=== PATIENT | male | born 1965 | race Hispanic/Latino ===

== ENCOUNTER 2017-12-09 22:22 | Inpatient (IN) | payer OTHER ==
[~2017-12-09] VITALS: Ht 180.3 cm; Wt 131.4 kg
[~2017-12-09 22:22] MED LIST: ASPI-555 PO; CARV25TA PO; DIAZ2TAB3 PO; DULA1.5P SQ; GABA-529 PO; INSU200I4 SQ; LISI-613 PO; METF-527 PO; PIOG30TA70 PO
[2017-12-09] MEDS ORDERED: SODIUM CHLORIDE 0.9% 1000ML 1,000 ML IV ONE (23:05)
[2017-12-09] MEDS ORDERED: ONDANSETRON HCL 4 MG/2 ML VIAL ONE (23:05)
[2017-12-09] MEDS ORDERED: ZOSYN 3.375GM+NS 50ML 50 ML IV ONE (23:06)
[2017-12-09] MEDS ORDERED: MORPHINE SULFATE 4 MG/1ML SYG ONE (23:06)
[2017-12-09 23:13] LABS: BASOPHILS % (AUTO) 0.4 % (0.0-5.0); EOSINOPHILS % (AUTO) 1.3 % (0.0-8.0); HEMATOCRIT 43.2 % (42-54); MEAN CORPUSCULAR HEMOGLOBIN 30.6 pg (27.0-33.0); MEAN CORPUSCULAR HGB CONC 34.6 g/dL (32.0-36.0); MEAN CORPUSCULAR VOLUME 88.4 fL (79-99); MONOCYTES % (AUTO) 8.9 % (3.0-13.0); NEUTROPHILS % (AUTO) 70.4 % (40.0-77.0); PLATELET COUNT (AUTO) 270 K/uL (130-400); RED BLOOD CELL COUNT(AUTO) 4.89 MIL/uL (4.50-6.20); RED CELL DISTRIBUTION WIDTH 13.5 % (11.0-15.5); WHITE BLOOD COUNT (AUTO) 11.6 K/uL (4.8-10.8)
[2017-12-09 23:19] LABS: CREATININE 0.9 mg/dL (0.5-1.5); POTASSIUM 4.1 mmol/L (3.5-5.1)
[2017-12-09 23:24] LABS: ALBUMIN 2.7 g/dL (3.5-5.0); BILIRUBIN,TOTAL 0.5 mg/dL (0.2-1.0); TOTAL PROTEIN, SERUM 8.7 g/dL (6.0-8.3)
[2017-12-09] MEDS ORDERED: VANCOMYCIN 1GM+NS 250ML 500 ML IV ONE (23:49)
[2017-12-10] VITALS (24 sets, daily range): BP systolic 108–155; BP diastolic 65–103
[2017-12-10] MEDS: SODIUM CHLORIDE 0.9% 1000ML 1,000 ML IV SCH ×2 (00:30→18:56)
[2017-12-10] MEDS ORDERED: DEXTROSE 50%-WATER 50 ML DISP.SYRIN IV PRN (00:30)
[2017-12-10] MEDS ORDERED: GLUCAGON 1MG KIT 1 MG ML IM PRN (00:30)
[2017-12-10] MEDS ORDERED: VANCOMYCIN PROTOCOL PER PHARMACY IV SCH (00:30)
[2017-12-10] MEDS ORDERED: ACETAMINOPHEN 325 MG TAB PO PRN (00:30)
[2017-12-10] MEDS ORDERED: PHARMACY COMMUNICATION MISC SCH (00:30)
[2017-12-10] MEDS: ZOSYN 3.375GM+NS 50ML 50 ML IV SCH ×3 (01:00→16:27)
[2017-12-10] MEDS ORDERED: VANCOMYCIN 1.5 GM in SODIUM CHLORIDE 0.9% 250 ML IV SCH (01:00)
[2017-12-10] MEDS ORDERED: DEXAMETHASONE SOD PHOSPHATE 10MG/ML 1ML VIAL ONE (02:26)
[2017-12-10] MEDS ORDERED: MIDAZOLAM HCL 1 MG/ML 2ML VIAL ONE ×2 (02:26→03:14)
[2017-12-10] MEDS ORDERED: ONDANSETRON HCL 4 MG/2 ML VIAL ONE (02:26)
[2017-12-10] MEDS ORDERED: LIDOCAINE PF 2% 5ML ABBOJECT ONE (02:26)
[2017-12-10] MEDS ORDERED: PROPOFOL 10 MG/ML 20ML VIAL IV ONE (02:26)
[2017-12-10] MEDS ORDERED: SUCCINYLCHOLINE 200MG/10ML SYR ONE (02:26)
[2017-12-10] MEDS ORDERED: FENTANYL CITRATE PF 50 MCG/1 ML 2ML VIAL ONE ×4 (02:27→03:52)
[2017-12-10] MEDS ORDERED: BUPIVACAINE/PF 0.5% 10ML VIAL ONE (02:34)
[2017-12-10] MEDS ORDERED: LIDOCAINE HCL 1% 20 ML VIAL ONE (02:34)
[2017-12-10] MEDS ORDERED: DiphenhydrAMINE HCL 50 MG/ML VIAL ONE (03:51)
[2017-12-10 06:37] LABS: BASOPHILS % (AUTO) 0.7 % (0.0-5.0); EOSINOPHILS % (AUTO) 2.7 % (0.0-8.0); HEMATOCRIT 38.2 % (42-54); LYMPHOCYTES % (AUTO) 28.1 % (21.0-51.0); MEAN CORPUSCULAR HGB CONC 34.9 g/dL (32.0-36.0); MONOCYTES % (AUTO) 9.4 % (3.0-13.0); NEUTROPHILS % (AUTO) 59.1 % (40.0-77.0); PLATELET COUNT (AUTO) 236 K/uL (130-400); RED BLOOD CELL COUNT(AUTO) 4.29 MIL/uL (4.50-6.20); RED CELL DISTRIBUTION WIDTH 13.6 % (11.0-15.5); WHITE BLOOD COUNT (AUTO) 8.3 K/uL (4.8-10.8)
[2017-12-10 06:47] LABS: ALBUMIN 2.3 g/dL (3.5-5.0); BILIRUBIN,TOTAL 0.4 mg/dL (0.2-1.0); CREATININE 0.8 mg/dL (0.5-1.5); MAGNESIUM 1.6 mg/dL (1.80-2.40); POTASSIUM 3.8 mmol/L (3.5-5.1); TOTAL PROTEIN, SERUM 7.2 g/dL (6.0-8.3)
[2017-12-10] MEDS: INSULIN R PO SS1 SQ SCH ×4 (06:53→20:43)
[2017-12-10] MEDS ORDERED: COMPOUND IV REFRIGERATED 1 EACH IVSOLN MISC PRN (07:45)
[2017-12-10] MEDS ORDERED: ONDANSETRON HCL MDV 20ML 2 MG/ML VIAL IVP PRN (07:45)
[2017-12-10] MEDS: HYDROMORPHONE HCL 0.5 MG/0.5 ML ML IVP PRN ×4 (08:19→20:51)
[2017-12-10] MEDS: VANCOMYCIN 2 GM in SODIUM CHLORIDE 0.9% 500ML 500 ML IV SCH ×2 (10:57→20:47)
[2017-12-10] MEDS: HYDROCODONE/ACETAMINOPHEN 5/325 MG TAB PO PRN (17:08)
[2017-12-10] MEDS ORDERED: LIRA0.6P SQ (17:14)
[2017-12-10] MEDS ORDERED: GLIM4TAB3 PO (17:14)
[2017-12-10] MEDS ORDERED: MECL-129 PO (17:14)
[2017-12-10] MEDS ORDERED: CIPR-245 PO (17:14)
[2017-12-10] MEDS: GLIMEPIRIDE 2 MG TABLET PO SCH (20:46)
[2017-12-10] MEDS: LISINOPRIL 20 MG TABLET PO SCH (20:47)
[2017-12-10] MEDS: CARVEDILOL 25 MG TABLET PO SCH (20:51)
[2017-12-11] MEDS: ZOSYN 3.375GM+NS 50ML 50 ML IV SCH ×3 (01:02→20:46)
[2017-12-11] MEDS: HYDROMORPHONE HCL 0.5 MG/0.5 ML ML IVP PRN ×5 (01:03→21:00)
[2017-12-11 03:40] VITALS: BP 120/70
[2017-12-11] MEDS: INSULIN R PO SS1 SQ SCH ×4 (06:16→21:00)
[2017-12-11 08:00] VITALS: BP 122/73
[2017-12-11] MEDS: METFORMIN HCL 500 MG TABLET PO SCH ×2 (08:00→17:00)
[2017-12-11] MEDS: INSULIN DEGLUDEC 50 UNIT SQ SCH (08:00)
[2017-12-11] MEDS: SODIUM CHLORIDE 0.9% 1000ML 1,000 ML IV SCH ×2 (08:07→16:30)
[2017-12-11] MEDS: LIRAGLUTIDE 1.8 MG SQ SCH (09:00)
[2017-12-11] MEDS: PIOGLITAZONE HCL 15 MG TAB PO SCH (09:27)
[2017-12-11] MEDS: CARVEDILOL 25 MG TABLET PO SCH ×2 (09:27→20:47)
[2017-12-11] MEDS: ASPIRIN 81 MG EC TAB PO SCH (09:28)
[2017-12-11] MEDS: LISINOPRIL 20 MG TABLET PO SCH ×2 (09:28→20:46)
[2017-12-11] MEDS: VANCOMYCIN 2 GM in SODIUM CHLORIDE 0.9% 500ML 500 ML IV SCH (09:34)
[2017-12-11 13:11] VITALS: BP 130/67
[2017-12-11] MEDS: VANCOMYCIN 1GM+NS 250ML 250 ML IV SCH ×2 (15:40→22:38)
[2017-12-11 16:00] VITALS: BP 134/81
[2017-12-11 19:20] VITALS: BP 154/91
[2017-12-11] MEDS: GLIMEPIRIDE 2 MG TABLET PO SCH (20:47)
[2017-12-12 00:20] VITALS: BP 127/83
[2017-12-12] MEDS: HYDROMORPHONE HCL 0.5 MG/0.5 ML ML IVP PRN ×3 (02:04→16:07)
[2017-12-12 04:05] VITALS: BP 136/81
[2017-12-12 05:02] LABS: BASOPHILS % (AUTO) 0.7 % (0.0-5.0); EOSINOPHILS % (AUTO) 3.8 % (0.0-8.0); HEMATOCRIT 39.1 % (42-54); LYMPHOCYTES % (AUTO) 29.8 % (21.0-51.0); MEAN CORPUSCULAR HEMOGLOBIN 31.3 pg (27.0-33.0); MEAN CORPUSCULAR HGB CONC 35.5 g/dL (32.0-36.0); MEAN CORPUSCULAR VOLUME 88.3 fL (79-99); MONOCYTES % (AUTO) 7.9 % (3.0-13.0); NEUTROPHILS % (AUTO) 57.8 % (40.0-77.0); NUCLEATED RED BLOOD CELLS 0.1 % (0.0-0.19); PLATELET COUNT (AUTO) 255 K/uL (130-400); RED BLOOD CELL COUNT(AUTO) 4.43 MIL/uL (4.50-6.20); RED CELL DISTRIBUTION WIDTH 13.5 % (11.0-15.5); WHITE BLOOD COUNT (AUTO) 11.9 K/uL (4.8-10.8)
[2017-12-12] MEDS: ZOSYN 3.375GM+NS 50ML 50 ML IV SCH ×3 (05:04→21:01)
[2017-12-12] MEDS: SODIUM CHLORIDE 0.9% 1000ML 1,000 ML IV SCH ×3 (05:07→22:30)
[2017-12-12 05:26] LABS: ALBUMIN 2.2 g/dL (3.5-5.0); BILIRUBIN,TOTAL 0.4 mg/dL (0.2-1.0); CREATININE 0.8 mg/dL (0.5-1.5); POTASSIUM 4.2 mmol/L (3.5-5.1); TOTAL PROTEIN, SERUM 7.2 g/dL (6.0-8.3)
[2017-12-12] MEDS: VANCOMYCIN 1GM+NS 250ML 250 ML IV SCH ×3 (05:42→23:16)
[2017-12-12] MEDS: INSULIN R PO SS1 SQ SCH ×4 (05:44→21:00)
[2017-12-12] MEDS: METFORMIN HCL 500 MG TABLET PO SCH ×2 (08:00→16:15)
[2017-12-12] MEDS: INSULIN DEGLUDEC 50 UNIT SQ SCH (08:00)
[2017-12-12 08:30] VITALS: BP 141/86
[2017-12-12] MEDS: CARVEDILOL 25 MG TABLET PO SCH ×2 (08:44→21:00)
[2017-12-12] MEDS: LISINOPRIL 20 MG TABLET PO SCH ×2 (08:45→21:00)
[2017-12-12] MEDS: ASPIRIN 81 MG EC TAB PO SCH (08:57)
[2017-12-12] MEDS: PIOGLITAZONE HCL 15 MG TAB PO SCH (08:58)
[2017-12-12] MEDS: LIRAGLUTIDE 1.8 MG SQ SCH (09:00)
[2017-12-12] MEDS: MORPHINE SULFATE 4 MG/1ML SYG IVP PRN ×2 (10:58→21:13)
[2017-12-12 12:50] VITALS: BP 131/73
[2017-12-12 17:06] VITALS: BP 155/96
[2017-12-12 20:00] VITALS: BP 142/98
[2017-12-12] MEDS: GLIMEPIRIDE 2 MG TABLET PO SCH (21:01)
[2017-12-13] VITALS: BP 138/89
[2017-12-13] MEDS: HYDROMORPHONE HCL 0.5 MG/0.5 ML ML IVP PRN ×5 (03:37→23:53)
[2017-12-13 04:00] VITALS: BP 164/87
[2017-12-13] MEDS: ZOSYN 3.375GM+NS 50ML 50 ML IV SCH ×3 (04:56→20:52)
[2017-12-13] MEDS: INSULIN R PO SS1 SQ SCH ×4 (06:30→20:53)
[2017-12-13 08:00] VITALS: BP 135/92
[2017-12-13] MEDS: INSULIN DEGLUDEC 50 UNIT SQ SCH (08:00)
[2017-12-13] MEDS: PIOGLITAZONE HCL 45 MG TAB PO SCH (08:48)
[2017-12-13] MEDS: METFORMIN HCL 500 MG TABLET PO SCH ×2 (08:48→16:23)
[2017-12-13] MEDS: ASPIRIN 81 MG EC TAB PO SCH (08:49)
[2017-12-13] MEDS: PIOGLITAZONE HCL 15 MG TAB PO SCH (08:49)
[2017-12-13] MEDS: LISINOPRIL 20 MG TABLET PO SCH ×2 (08:49→20:53)
[2017-12-13] MEDS: CARVEDILOL 25 MG TABLET PO SCH ×2 (08:49→20:53)
[2017-12-13] MEDS: LIRAGLUTIDE 1.8 MG SQ SCH (08:51)
[2017-12-13] MEDS: SODIUM CHLORIDE 0.9% 1000ML 1,000 ML IV SCH ×2 (09:12→16:23)
[2017-12-13 12:00] VITALS: BP 132/91
[2017-12-13 16:00] VITALS: BP 117/69
[2017-12-13 19:00] VITALS: BP 128/93
[2017-12-13] MEDS: GLIMEPIRIDE 2 MG TABLET PO SCH (20:52)
[2017-12-14] VITALS (23 sets, daily range): BP systolic 53–148; BP diastolic 27–94
[2017-12-14] MEDS: ZOSYN 3.375GM+NS 50ML 50 ML IV SCH ×3 (04:57→21:00)
[2017-12-14] MEDS: HYDROMORPHONE HCL 0.5 MG/0.5 ML ML IVP PRN ×4 (05:03→21:32)
[2017-12-14] MEDS ORDERED: LIDOCAINE HCL 1% 20 ML VIAL ONE (06:02)
[2017-12-14] MEDS ORDERED: BUPIVACAINE/PF 0.5% 30ML VIAL ONE (06:02)
[2017-12-14] MEDS: INSULIN R PO SS1 SQ SCH ×4 (06:04→20:59)
[2017-12-14] MEDS: SODIUM CHLORIDE 0.9% 1000ML 1,000 ML IV SCH ×3 (06:13→23:41)
[2017-12-14] MEDS ORDERED: PROPOFOL 10 MG/ML 20ML VIAL IV ONE (06:34)
[2017-12-14] MEDS ORDERED: FENTANYL CITRATE PF 50 MCG/1 ML 2ML VIAL ONE (06:34)
[2017-12-14] MEDS ORDERED: MIDAZOLAM HCL 1 MG/ML 2ML VIAL ONE (06:34)
[2017-12-14] MEDS: PIOGLITAZONE HCL 45 MG TAB PO SCH ×3 (07:43→09:56)
[2017-12-14] MEDS: LIRAGLUTIDE 1.8 MG SQ SCH (07:43)
[2017-12-14] MEDS: INSULIN DEGLUDEC 50 UNIT SQ SCH (07:43)
[2017-12-14] MEDS: CARVEDILOL 25 MG TABLET PO SCH ×2 (08:25→21:01)
[2017-12-14] MEDS: LISINOPRIL 20 MG TABLET PO SCH ×2 (08:25→21:01)
[2017-12-14] MEDS: PIOGLITAZONE HCL 15 MG TAB PO SCH (09:00)
[2017-12-14] MEDS: ASPIRIN 81 MG EC TAB PO SCH (09:00)
[2017-12-14] MEDS: METFORMIN HCL 500 MG TABLET PO SCH ×2 (09:52→17:22)
[2017-12-14] MEDS: HYDROCODONE/ACETAMINOPHEN 5/325 MG TAB PO PRN (19:26)
[2017-12-14] MEDS: GLIMEPIRIDE 2 MG TABLET PO SCH (21:01)
[2017-12-15] VITALS: BP 114/78
[2017-12-15] MEDS: HYDROMORPHONE HCL 0.5 MG/0.5 ML ML IVP PRN ×4 (03:42→16:46)
[2017-12-15 04:38] VITALS: BP 128/81
[2017-12-15] MEDS: ZOSYN 3.375GM+NS 50ML 50 ML IV SCH ×3 (04:56→21:22)
[2017-12-15] MEDS: HYDROCODONE/ACETAMINOPHEN 5/325 MG TAB PO PRN ×2 (05:43→15:29)
[2017-12-15] MEDS: INSULIN R PO SS1 SQ SCH ×4 (05:44→21:00)
[2017-12-15] MEDS: INSULIN DEGLUDEC 50 UNIT SQ SCH (08:00)
[2017-12-15] MEDS: ASPIRIN 81 MG EC TAB PO SCH (08:04)
[2017-12-15] MEDS: LISINOPRIL 20 MG TABLET PO SCH ×2 (08:05→21:20)
[2017-12-15] MEDS: CARVEDILOL 25 MG TABLET PO SCH ×2 (08:05→21:22)
[2017-12-15] MEDS: METFORMIN HCL 500 MG TABLET PO SCH ×2 (08:05→16:46)
[2017-12-15] MEDS: LIRAGLUTIDE 1.8 MG SQ SCH (08:43)
[2017-12-15 09:53] VITALS: BP 148/96
[2017-12-15 11:00] VITALS: BP 126/80
[2017-12-15] MEDS: SODIUM CHLORIDE 0.9% 1000ML 1,000 ML IV SCH ×2 (12:55→22:41)
[2017-12-15 16:00] VITALS: BP 132/75
[2017-12-15 20:00] VITALS: BP 156/94
[2017-12-15] MEDS: GLIMEPIRIDE 2 MG TABLET PO SCH (21:21)
[2017-12-16] VITALS (7 sets, daily range): BP systolic 130–161; BP diastolic 79–97
[2017-12-16] MEDS: HYDROMORPHONE HCL 0.5 MG/0.5 ML ML IVP PRN (02:45)
[2017-12-16] MEDS: ZOSYN 3.375GM+NS 50ML 50 ML IV SCH ×3 (06:02→20:29)
[2017-12-16] MEDS: INSULIN R PO SS1 SQ SCH ×4 (06:02→21:00)
[2017-12-16] MEDS: SODIUM CHLORIDE 0.9% 1000ML 1,000 ML IV SCH ×2 (06:30→16:30)
[2017-12-16] MEDS: INSULIN DEGLUDEC 50 UNIT SQ SCH (08:00)
[2017-12-16] MEDS: PIOGLITAZONE HCL 45 MG TAB PO SCH (08:00)
[2017-12-16] MEDS: HYDROCODONE/ACETAMINOPHEN 5/325 MG TAB PO PRN ×5 (08:00→23:48)
[2017-12-16] MEDS: ASPIRIN 81 MG EC TAB PO SCH (08:00)
[2017-12-16] MEDS: LISINOPRIL 20 MG TABLET PO SCH ×2 (08:01→20:35)
[2017-12-16] MEDS: METFORMIN HCL 500 MG TABLET PO SCH ×2 (08:01→17:35)
[2017-12-16] MEDS: CARVEDILOL 25 MG TABLET PO SCH ×2 (08:01→20:30)
[2017-12-16] MEDS: LIRAGLUTIDE 1.8 MG SQ SCH (08:01)
[2017-12-16] MEDS: GLIMEPIRIDE 2 MG TABLET PO SCH (20:29)
[2017-12-17 04:00] VITALS: BP 150/94
[2017-12-17] MEDS: ZOSYN 3.375GM+NS 50ML 50 ML IV SCH ×3 (06:29→23:06)
[2017-12-17] MEDS: HYDROCODONE/ACETAMINOPHEN 5/325 MG TAB PO PRN ×3 (06:30→15:18)
[2017-12-17] MEDS: INSULIN R PO SS1 SQ SCH ×4 (07:30→21:00)
[2017-12-17 08:00] VITALS: BP 144/88
[2017-12-17] MEDS: INSULIN DEGLUDEC 50 UNIT SQ SCH (08:00)
[2017-12-17] MEDS: LIRAGLUTIDE 1.8 MG SQ SCH (08:23)
[2017-12-17] MEDS: GABAPENTIN 100 MG CAPSULE PO SCH ×3 (09:34→20:10)
[2017-12-17] MEDS: ASPIRIN 81 MG EC TAB PO SCH (09:35)
[2017-12-17] MEDS: PIOGLITAZONE HCL 45 MG TAB PO SCH (09:35)
[2017-12-17] MEDS: CARVEDILOL 25 MG TABLET PO SCH ×2 (09:35→20:10)
[2017-12-17] MEDS: METFORMIN HCL 500 MG TABLET PO SCH ×2 (09:35→17:34)
[2017-12-17] MEDS: LISINOPRIL 20 MG TABLET PO SCH ×2 (09:35→20:11)
[2017-12-17 11:00] VITALS: BP 144/92
[2017-12-17 16:00] VITALS: BP 133/83
[2017-12-17 20:00] VITALS: BP 126/103
[2017-12-17] MEDS: GLIMEPIRIDE 2 MG TABLET PO SCH (20:11)
[2017-12-18] VITALS (7 sets, daily range): BP systolic 116–144; BP diastolic 65–94
[2017-12-18] MEDS: HYDROCODONE/ACETAMINOPHEN 5/325 MG TAB PO PRN ×4 (00:56→23:18)
[2017-12-18] MEDS: ZOSYN 3.375GM+NS 50ML 50 ML IV SCH ×3 (05:05→20:25)
[2017-12-18] MEDS: INSULIN R PO SS1 SQ SCH ×4 (06:45→20:46)
[2017-12-18] MEDS: INSULIN DEGLUDEC 50 UNIT SQ SCH (08:00)
[2017-12-18] MEDS: LIRAGLUTIDE 1.8 MG SQ SCH (09:00)
[2017-12-18] MEDS: ASPIRIN 81 MG EC TAB PO SCH (10:21)
[2017-12-18] MEDS: METFORMIN HCL 500 MG TABLET PO SCH ×2 (10:21→16:48)
[2017-12-18] MEDS: LISINOPRIL 20 MG TABLET PO SCH ×2 (10:21→20:31)
[2017-12-18] MEDS: GABAPENTIN 100 MG CAPSULE PO SCH ×3 (10:21→20:25)
[2017-12-18] MEDS: PIOGLITAZONE HCL 45 MG TAB PO SCH (10:21)
[2017-12-18] MEDS: CARVEDILOL 25 MG TABLET PO SCH ×2 (10:22→20:26)
[2017-12-18] MEDS: GLIMEPIRIDE 2 MG TABLET PO SCH (20:26)
[2017-12-19 03:45] VITALS: BP 136/89
[2017-12-19] MEDS: ZOSYN 3.375GM+NS 50ML 50 ML IV SCH ×3 (05:33→20:52)
[2017-12-19] MEDS: HYDROCODONE/ACETAMINOPHEN 5/325 MG TAB PO PRN ×4 (05:34→23:34)
[2017-12-19] MEDS: INSULIN R PO SS1 SQ SCH ×4 (06:20→21:00)
[2017-12-19] MEDS: INSULIN DEGLUDEC 50 UNIT SQ SCH (08:00)
[2017-12-19] MEDS: LIRAGLUTIDE 1.8 MG SQ SCH (08:50)
[2017-12-19] MEDS: LISINOPRIL 20 MG TABLET PO SCH ×2 (09:00→20:53)
[2017-12-19] MEDS: METFORMIN HCL 500 MG TABLET PO SCH ×2 (09:00→18:09)
[2017-12-19] MEDS: GABAPENTIN 300 MG CAPSULE PO SCH ×3 (09:00→20:52)
[2017-12-19] MEDS: ASPIRIN 81 MG EC TAB PO SCH (09:00)
[2017-12-19] MEDS: CARVEDILOL 25 MG TABLET PO SCH ×2 (09:01→20:54)
[2017-12-19] MEDS: PIOGLITAZONE HCL 45 MG TAB PO SCH (09:01)
[2017-12-19 09:25] VITALS: BP 120/75
[2017-12-19 12:53] VITALS: BP 106/66
[2017-12-19 16:41] VITALS: BP 106/63
[2017-12-19 20:09] VITALS: BP 135/79
[2017-12-19] MEDS: GLIMEPIRIDE 2 MG TABLET PO SCH (20:53)
[2017-12-20 00:09] VITALS: BP 114/66
[2017-12-20 04:09] VITALS: BP 90/54
[2017-12-20] MEDS: ZOSYN 3.375GM+NS 50ML 50 ML IV SCH ×3 (04:52→20:16)
[2017-12-20] MEDS: INSULIN R PO SS1 SQ SCH ×4 (06:40→20:21)
[2017-12-20] MEDS: INSULIN DEGLUDEC 50 UNIT SQ SCH (08:00)
[2017-12-20 08:18] VITALS: BP 110/76
[2017-12-20] MEDS: METFORMIN HCL 500 MG TABLET PO SCH ×2 (08:30→17:47)
[2017-12-20] MEDS: CARVEDILOL 25 MG TABLET PO SCH ×2 (08:31→20:19)
[2017-12-20] MEDS: ASPIRIN 81 MG EC TAB PO SCH (08:31)
[2017-12-20] MEDS: LISINOPRIL 20 MG TABLET PO SCH ×2 (08:32→20:18)
[2017-12-20] MEDS: PIOGLITAZONE HCL 45 MG TAB PO SCH (08:32)
[2017-12-20] MEDS: GABAPENTIN 300 MG CAPSULE PO SCH ×3 (08:32→20:20)
[2017-12-20] MEDS: HYDROCODONE/ACETAMINOPHEN 5/325 MG TAB PO PRN ×4 (08:34→22:12)
[2017-12-20] MEDS: LIRAGLUTIDE 1.8 MG SQ SCH (08:37)
[2017-12-20 11:42] VITALS: BP 91/55
[2017-12-20 16:00] VITALS: BP 103/54
[2017-12-20 19:00] VITALS: BP 106/67
[2017-12-20] MEDS: GLIMEPIRIDE 2 MG TABLET PO SCH (20:20)
[2017-12-21] VITALS (7 sets, daily range): BP systolic 95–129; BP diastolic 55–81
[2017-12-21] MEDS: HYDROMORPHONE HCL 0.5 MG/0.5 ML ML IVP PRN (01:46)
[2017-12-21] MEDS: ZOSYN 3.375GM+NS 50ML 50 ML IV SCH ×3 (05:26→21:30)
[2017-12-21] MEDS: HYDROCODONE/ACETAMINOPHEN 5/325 MG TAB PO PRN ×4 (05:26→23:32)
[2017-12-21] MEDS: INSULIN R PO SS1 SQ SCH ×4 (07:30→21:00)
[2017-12-21] MEDS: METFORMIN HCL 500 MG TABLET PO SCH ×2 (07:48→17:21)
[2017-12-21] MEDS: PIOGLITAZONE HCL 45 MG TAB PO SCH (07:48)
[2017-12-21] MEDS: GABAPENTIN 300 MG CAPSULE PO SCH ×3 (07:50→21:32)
[2017-12-21] MEDS: ASPIRIN 81 MG EC TAB PO SCH (07:53)
[2017-12-21] MEDS: INSULIN DEGLUDEC 50 UNIT SQ SCH (07:57)
[2017-12-21] MEDS: LIRAGLUTIDE 1.8 MG SQ SCH (07:57)
[2017-12-21] MEDS: CARVEDILOL 25 MG TABLET PO SCH ×2 (12:00→21:31)
[2017-12-21] MEDS: LISINOPRIL 20 MG TABLET PO SCH ×2 (12:00→21:31)
[2017-12-21] MEDS: GLIMEPIRIDE 2 MG TABLET PO SCH (21:32)
[2017-12-22 04:00] VITALS: BP 99/57
[2017-12-22] MEDS: ZOSYN 3.375GM+NS 50ML 50 ML IV SCH ×2 (05:11→15:22)
[2017-12-22] MEDS: HYDROCODONE/ACETAMINOPHEN 5/325 MG TAB PO PRN ×2 (05:11→11:39)
[2017-12-22] MEDS: INSULIN R PO SS1 SQ SCH ×3 (06:06→16:30)
[2017-12-22] MEDS: INSULIN DEGLUDEC 50 UNIT SQ SCH (08:00)
[2017-12-22 08:38] VITALS: BP 126/92
[2017-12-22] MEDS: PIOGLITAZONE HCL 45 MG TAB PO SCH (08:50)
[2017-12-22] MEDS: METFORMIN HCL 500 MG TABLET PO SCH (08:50)
[2017-12-22] MEDS: CARVEDILOL 25 MG TABLET PO SCH (08:50)
[2017-12-22] MEDS: LISINOPRIL 20 MG TABLET PO SCH (08:50)
[2017-12-22] MEDS: ASPIRIN 81 MG EC TAB PO SCH (08:50)
[2017-12-22] MEDS: LIRAGLUTIDE 1.8 MG SQ SCH (08:51)
[2017-12-22] MEDS: GABAPENTIN 300 MG CAPSULE PO SCH ×2 (08:51→15:23)
[2017-12-22 12:52] VITALS: BP 100/62
[2017-12-22 17:10] VITALS: BP 141/88
== END 2017-12-22 17:45 | disposition home or self-care (01) | DRG 317 ==
LOC: EDH 22:22 → EDHIP 22:23 → 3DH 12-10 04:43
PROVIDERS: ADMIT Internal Medicine; ATTEND Internal Medicine
PROC: 0LBV0ZZ Excision of Right Foot Tendon, Open Approach (ICD-10-PCS; principal; 2017-12-10 02:49)
PROC: 0KBV0ZZ Excision of Right Foot Muscle, Open Approach (ICD-10-PCS; 2017-12-14 06:30)
PROC: 0QBR3ZX Excision of Left Toe Phalanx, Percutaneous Approach, Diagnostic (ICD-10-PCS; 2017-12-14 06:30)
DX: M72.6 Necrotizing fasciitis (principal); E11.40 Type 2 diabetes mellitus with diabetic neuropathy, unspecified; E11.621 Type 2 diabetes mellitus with foot ulcer; L03.115 Cellulitis of right lower limb; Z68.41 Body mass index [BMI] 40.0-44.9, adult; E11.65 Type 2 diabetes mellitus with hyperglycemia; I10 Essential (primary) hypertension; R00.0 Tachycardia, unspecified; S91.331A Puncture wound without foreign body, right foot, initial encounter; E78.5 Hyperlipidemia, unspecified; L97.519 Non-pressure chronic ulcer of other part of right foot with unspecified severity; E66.9 Obesity, unspecified; Z83.3 Family history of diabetes mellitus
CPT/HCPCS: 36415; 71045; 73630; 73718; 80053; 80202; 82948; 83605; 83735; 84484; 85025; 87040; 87070; 87076; 87077; 87186; 87205; 88305; 88311; 93005; 93925; 97039; A6250; J0330; J1100; J1170; J1200; J1815; J2001; J2250; J2270; J2405; J2543; J2704; J3010; J3370; J3490; J7030; J7040

== ENCOUNTER 2017-12-25 00:25 | Emergency (ER) | payer OTHER ==
[~2017-12-25 00:25] MED LIST changes: -DIAZ2TAB3 PO; -DULA1.5P SQ; -GABA-529 PO; +GLIM4TAB3 PO; +LIRA0.6P SQ; +MECL-129 PO
[2017-12-25] MEDS ORDERED: SODIUM CHLORIDE 0.9% 1000ML 1,000 ML IV ONE (03:05)
[2017-12-25] MEDS ORDERED: MORPHINE SULFATE 8 MG/ML VIAL ONE (03:05)
[2017-12-25] MEDS ORDERED: ONDANSETRON HCL MDV 20ML 2 MG/ML VIAL ONE (03:05)
[2017-12-25 03:21] LABS: BASOPHILS % (AUTO) 0.8 % (0.0-5.0); EOSINOPHILS % (AUTO) 1.6 % (0.0-8.0); HEMATOCRIT 38.6 % (42-54); LYMPHOCYTES % (AUTO) 40.6 % (21.0-51.0); MEAN CORPUSCULAR HEMOGLOBIN 30.5 pg (27.0-33.0); MEAN CORPUSCULAR HGB CONC 34.7 g/dL (32.0-36.0); MEAN CORPUSCULAR VOLUME 87.9 fL (79-99); MONOCYTES % (AUTO) 7.8 % (3.0-13.0); NEUTROPHILS % (AUTO) 49.2 % (40.0-77.0); PLATELET COUNT (AUTO) 235 K/uL (130-400); RED CELL DISTRIBUTION WIDTH 13.5 % (11.0-15.5); WHITE BLOOD COUNT (AUTO) 7.4 K/uL (4.8-10.8)
[2017-12-25 03:33] LABS: INR 1.1 (0.85-1.15); PARTIAL THROMBOPLASTIN TIME 27.8 SEC (26.3-35.5); PROTHROMBIN TIME 11.5 SEC (9.6-11.6)
[2017-12-25 03:36] LABS: CREATININE 0.7 mg/dL (0.5-1.5); POTASSIUM 4.5 mmol/L (3.5-5.1)
[2017-12-25 03:38] LABS: ALBUMIN 3.1 g/dL (3.5-5.0); BILIRUBIN,TOTAL 0.7 mg/dL (0.2-1.0); TOTAL PROTEIN, SERUM 8.4 g/dL (6.0-8.3)
== END 2017-12-25 06:20 | disposition home or self-care (01) ==
LOC: EDH 00:25
DX: M79.671 Pain in right foot (principal); L08.9 Local infection of the skin and subcutaneous tissue, unspecified; R07.9 Chest pain, unspecified; E11.65 Type 2 diabetes mellitus with hyperglycemia; E11.40 Type 2 diabetes mellitus with diabetic neuropathy, unspecified; E78.5 Hyperlipidemia, unspecified; I10 Essential (primary) hypertension; Z79.4 Long term (current) use of insulin
CPT/HCPCS: 36415; 71045; 73630; 80053; 83605; 84484; 85025; 85610; 85730; 93005; 96374; 96375; 99285; J2270; J7030

== ENCOUNTER 2017-12-31 08:01 | Emergency (ER) | payer SELFPAY ==
[2017-12-31 08:50] LABS: BASOPHILS % (AUTO) 0.9 % (0.0-5.0); EOSINOPHILS % (AUTO) 5.3 % (0.0-8.0); HEMATOCRIT 43.5 % (42-54); LYMPHOCYTES % (AUTO) 37.5 % (21.0-51.0); MEAN CORPUSCULAR HEMOGLOBIN 30.4 pg (27.0-33.0); MEAN CORPUSCULAR HGB CONC 34.3 g/dL (32.0-36.0); MEAN CORPUSCULAR VOLUME 88.5 fL (79-99); MONOCYTES % (AUTO) 7.2 % (3.0-13.0); NEUTROPHILS % (AUTO) 49.1 % (40.0-77.0); NUCLEATED RED BLOOD CELLS 0.1 % (0.0-0.19); PLATELET COUNT (AUTO) 191 K/uL (130-400); RED BLOOD CELL COUNT(AUTO) 4.91 MIL/uL (4.50-6.20); RED CELL DISTRIBUTION WIDTH 13.6 % (11.0-15.5); WHITE BLOOD COUNT (AUTO) 6.3 K/uL (4.8-10.8)
[2017-12-31 08:56] LABS: CREATININE 0.9 mg/dL (0.5-1.5); POTASSIUM 3.7 mmol/L (3.5-5.1)
[2017-12-31 09:01] LABS: ALBUMIN 3.3 g/dL (3.5-5.0); BILIRUBIN,TOTAL 0.4 mg/dL (0.2-1.0)
== END 2017-12-31 09:54 | disposition home or self-care (01) ==
LOC: EDH 08:01
DX: T81.4XXA Infection following a procedure, initial encounter (principal); L08.9 Local infection of the skin and subcutaneous tissue, unspecified; E78.5 Hyperlipidemia, unspecified; E11.40 Type 2 diabetes mellitus with diabetic neuropathy, unspecified; I10 Essential (primary) hypertension; Z98.890 Other specified postprocedural states
CPT/HCPCS: 36415; 80053; 85025

== ENCOUNTER 2019-02-10 00:37 | Emergency (ER) | payer MEDICAID, OTHER ==
[2019-02-10 01:14] LABS: BASOPHILS % (AUTO) 0.4 % (0.0-5.0); EOSINOPHILS % (AUTO) 1.7 % (0.0-8.0); HEMATOCRIT 47.6 % (42-54); LYMPHOCYTES % (AUTO) 27.7 % (21.0-51.0); MEAN CORPUSCULAR HGB CONC 35.2 g/dL (32.0-36.0); MONOCYTES % (AUTO) 8.2 % (3.0-13.0); PLATELET COUNT (AUTO) 148 K/uL (130-400); RED BLOOD CELL COUNT(AUTO) 5.23 MIL/uL (4.50-6.20); RED CELL DISTRIBUTION WIDTH 12.8 % (11.0-15.5)
[2019-02-10 01:18] LABS: CREATININE 0.8 mg/dL (0.5-1.5); POTASSIUM 4.1 mmol/L (3.5-5.1)
[2019-02-10] MEDS ORDERED: KETOROLAC TROMETHAMINE 15MG/ML ONE (01:19)
[2019-02-10] MEDS ORDERED: AMPICILLIN SODIUM/SULBACTAM NA 1.5GM VIAL ONE (01:19)
[2019-02-10] MEDS ORDERED: SODIUM CHLORIDE 0.9% 500ML 500 ML IV ONE (01:19)
== END 2019-02-10 02:41 | disposition home or self-care (01) ==
LOC: EDH 00:37
DX: K04.7 Periapical abscess without sinus (principal)
CPT/HCPCS: 36415; 80048; 85025; 96365; 96375; 99284; J0295; J1885; J7040

== ENCOUNTER 2023-08-18 09:46 | Emergency (ER) | payer MEDICAID ==
[~2023-08-18] VITALS: Ht 182.9 cm; Wt 93.0 kg
[~2023-08-18 09:46] MED LIST changes: -ASPI-555 PO; +ASPI-556 PO; +CARV12.580 PO; -CARV25TA PO; +EMPA25TA PO; +GABA300C PO; -GLIM4TAB3 PO; +GLIM4TAB36 PO; +INSLAN SQ; -INSU200I4 SQ; -LISI-613 PO; +LISI10TA24 PO; +[UNRECOGNIZED DRUG - CODE] MC
[2023-08-18 10:08] LABS: HEMATOCRIT 37.4 % (42-54); MEAN CORPUSCULAR HEMOGLOBIN 31.1 pg (27.0-33.0); MEAN CORPUSCULAR HGB CONC 35.8 g/dL (32.0-36.0); MEAN CORPUSCULAR VOLUME 86.8 fL (79-99); RED BLOOD CELL COUNT(AUTO) 4.31 MIL/uL (4.50-6.20); RED CELL DISTRIBUTION WIDTH 12.3 % (11.0-15.5); WHITE BLOOD COUNT (AUTO) 7.2 K/uL (4.8-10.8)
[2023-08-18 10:27] LABS: ALBUMIN 2.8 g/dL (3.5-5.0); BILIRUBIN,TOTAL 0.4 mg/dL (0.2-1.0); POTASSIUM 4.1 mmol/L (3.5-5.1); TOTAL PROTEIN, SERUM 7.1 g/dL (6.0-8.3)
[2023-08-18] MEDS ORDERED: METH4TAB3 PO (11:38)
[2023-08-18 12:00] VITALS: BP 124/72; PULSE 76; RESP 18; O2SAT 98
[2023-08-18] MEDS ORDERED: SOLU-MEDROL 125MG VIAL IM ONE (12:00)
== END 2023-08-18 12:30 | disposition left against medical advice (07) ==
LOC: EDH 09:46
DX: S00.83XA Contusion of other part of head, initial encounter (principal); M25.521 Pain in right elbow; M79.18 Myalgia, other site; I10 Essential (primary) hypertension; E11.9 Type 2 diabetes mellitus without complications; E78.00 Pure hypercholesterolemia, unspecified; Z79.82 Long term (current) use of aspirin; Z79.84 Long term (current) use of oral hypoglycemic drugs; Z79.899 Other long term (current) drug therapy; Z98.890 Other specified postprocedural states; Z90.49 Acquired absence of other specified parts of digestive tract; W07.XXXA Fall from chair, initial encounter; Y93.89 Activity, other specified; Y92.89 Other specified places as the place of occurrence of the external cause; Y99.8 Other external cause status
CPT/HCPCS: 99285; 70450; 80053; 85027; 36415; 72125; 96372; J2930

== ENCOUNTER 2025-03-29 19:02 | Inpatient (IN) | payer MEDICAID ==
[~2025-03-29] VITALS: Ht 182.9 cm; Wt 88.2 kg
[~2025-03-29 19:02] MED LIST changes: +METH4TAB3 PO
[2025-03-29 19:25] LABS: IMMATURE GRANULOCYTE ABSOLUTE 0.28 K/uL (0-1); NUCLEATED RED BLOOD CELLS 0.0 % (0.0-0.19); PLATELET COUNT (AUTO) 188 K/uL (130-400); RED BLOOD CELL COUNT(AUTO) 4.42 MIL/uL (4.50-6.20); RED CELL DISTRIBUTION WIDTH 12.5 % (11.0-15.5); WHITE BLOOD COUNT (AUTO) 21.5 K/uL (4.8-10.8)
[2025-03-29] MEDS: [UNRECOGNIZED DRUG - OTHER] IV ONE (19:28)
--- NOTE | 2025-03-29 19:31 | ERN ---
ED Note History of Present Illness Stated Complaint: CHILLS, GBW, DIARRHEA Chief Complaint: Sepsis Time Seen by : 19:07 Dictation: This is a 60-year-old male who presented to the emergency room with complaints of generalized body weakness fever and chills going on for about 5-6 days. Apparently he has had issues related to diabetes and foot ulcers and on his right foot he underwent a transmetatarsal amputation. He started having changes in the left foot and he had seen Dr. Lechuga and is supposed to be scheduled for a procedure in the next few weeks. During my exam he was tachypneic and appeared very uncomfortable and sick. He also reported mild cough and profuse diarrhea at least 10 episodes. He denied any blood in the stool. No nausea vomitings. 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 Prov:CAROLYN WHITTINGTON Jr., MD 08/10/21 Lisinopril (Lisinopril) 10 Mg Tablet, 10 MG PO BID for 30 Days, #60 TAB Prov:CAROLYN WHITTINGTON Jr., MD 08/10/21 Gabapentin (Neurontin) 300 Mg Capsule, 600 MG PO BID for 15 Days, #60 CAP Prov:CAROLYN WHITTINGTON Jr., MD 08/10/21 Carvedilol (Coreg) 12.5 Mg Tablet, 12.5 MG PO BID for 30 Days, #60 TAB Prov:CAROLYN WHITTINGTON Jr., MD 08/10/21 Reported Medications Empagliflozin (Jardiance) 25 Mg Tablet, 25 MG PO DAILY, TAB 08/06/21 Liraglutide (Victoza 2-Lorenzo) 0.6 Mg/0.1 Ml Pen.injctr, 1.8 MG SQ DAILY 12/10/17 Meclizine HCl (Meclizine HCl) 25 Mg Tab.chew, 25 MG PO BID, TAB.CHEW 12/10/17 Glimepiride (Glimepiride) 4 Mg Tablet, 4 MG PO HS, TAB 12/10/17 Pioglitazone HCl (Pioglitazone HCl) 30 Mg Tablet, 45 MG PO DAILY, TAB 08/10/16 Aspirin (Aspir 81) 81 Mg Tablet.dr, 81 MG PO DAILY, TAB 08/10/16 Metformin HCl (Metformin HCl ER) 1,000 Mg Tab.er.24, 1000 MG PO BIDMEALS 08/10/16 Past Medical History Past Medical History: CAD, CVA, Diabetes-Type II, High Cholesterol, Heart Disease, Hypertension Additional Past Medical Hx: NEUROPATHY, VERTIGO, FOOT ULCER Surgical History: Appendectomy, Cholecystectomy, Other Surgical History Other: FOOT SURGERY, RIGHT Family History: Negative Social History: Negative RN Note Reviewed/Agreed w/PFSH: Yes Review of System Dictation Constitutional: Positive for fever,chills, and weight loss positive for generalized body weakness Eyes: Negative for injury, pain,redness, and discharge ENT: Negative for injury,pain or swelling Cardiovascular: Negative for chest pain, palpitations, and edema Respiratory: Negative for shortness of breath, cough, and wheezing, Abdomen/GI: Negative for abdominal pain, nausea, vomiting, diarrhea, and constipation Back: Negative for injury and pain : Negative for injury, bleeding and discharge MS/Extremity: Negative for injury and deformity positive for left foot color margret nges Skin: Negative for rash, and discoloration Neuro: Negative for headache, weakness, numbness, tingling, and seizure Psych: Negative for suicide ideation, homicidal ideation, and hallucinations Initial Vital Sign VS Vital Signs Date Time Temp Pulse Resp B/P (MAP) Pulse Ox O2 Delivery O2 Flow Rate FiO2 03/29/25 19:04 101.8 124 26 136/86 100 Room Air 03/29/25 19:29 0 21 Physical Exam Dictation General: awake, alert, tachypneic appears very sick and toxic Head/Face: Normocephalic, atraumatic Eyes: PERRL, EOMI, vision at baseline ENT: oral cavity clear, TMs clear, no signs of infection Neck: Trachea midline, supple, no nuchal rigidity Cardiovascular: RRR, normal S1/S2, No MRGs, no JVD Respiratory: CTAB, no respiratory distress, No rales or wheezes Abdomen: Soft, non-tender, non-distended, normal bowel sounds, no guarding or rebound. Skin: Warm, dry, normal turgor, no rash MS/Extremity: Pulses equal, no cyanosis, neurovascular intact, FROM right foot transmetatarsal amputation. Left foot plantar surface very large necrotic area Neuro: COAx4, GCS 15, strength 5/5, CN 2-12 intact, normal cerebellar exam, normal gait, Psych: Normal behavior, mood, and affect normal Extremities-trace edema without any palpable cords, Homans sign is negative Results (Laboratory/Radiology) Laboratory/Radiology Laboratory Tests Test 03/29/25 19:14 03/29/25 19:18 03/29/25 20:02 White Blood Count 21.5 K/uL (4.8-10.8) H Red Blood Count 4.42 MIL/uL (4.50-6.20) L Hemoglobin 13.7 g/dL (14.0-18.0) L Hematocrit 38.4 % (42-54) L Mean Corpuscular Volume 86.9 fL (79-99) Mean Corpuscular Hemoglobin 31.0 pg (27.0-33.0) Mean Corpuscular Hemoglobin Concent 35.7 g/dL (32.0-36.0) Red Cell Distribution Width 12.5 % (11.0-15.5) Platelet Count 188 K/uL (130-400) Mean Platelet Volume 11.1 fL (7.5-10.5) H Immature Granulocyte % (Auto) 1.3 % (0-1) H Neutrophils (%) (Auto) 86.6 % (40.0-77.0) H Lymphocytes (%) (Auto) 7.1 % (21.0-51.0) L Monocytes (%) (Auto) 4.7 % (3.0-13.0) Eosinophils (%) (Auto) 0.1 % (0.0-8.0) Basophils (%) (Auto) 0.2 % (0.0-5.0) Neutrophils # (Auto) 18.6 K/uL (1.8-7.7) H Lymphocytes # (Auto) 1.5 K/uL (1.0-4.8) Monocytes # (Auto) 1.0 K/uL (0.1-1.0) Eosinophils # (Auto) 0.03 K/uL (0.00-0.70) Basophils # (Auto) 0.05 K/uL (0.00-0.20) Absolute Immature Granulocyte (auto 0.28 K/uL (0-1) Nucleated Red Blood Cells 0.0 % (0.0-0.19) White Cell Morphology Comment See comments Sodium Level 125 mmol/L (136-145) L Potassium Level 4.2 mmol/L (3.5-5.1) Chloride Level 91 mmol/L (101-111) L Carbon Dioxide Level 28 mmol/L (21-32) Blood Urea Nitrogen 16 mg/dL (7-18) Creatinine 1.1 mg/dL (0.5-1.3) Glomerular Filtration Rate Calc 76 mL/min (>90) Random Glucose 347 mg/dL (70-105) H Lactic Acid Level 3.1 mmol/L (0.8-2.5) H Total Calcium 7.8 mg/dL (8.5-10.1) L Total Creatine Kinase 22 U/L (21-232) # Troponin I High Sensitivity 11 ng/L (4-75) Influenza Type A Antigen Negative For Type A Influenza Type B Antigen Negative For Type B SARS-CoV-2, RNA, NAAT NEGATIVE SARS CoV-2 Group A Streptococcus Rapid negative (NEGATIVE) Urine Color LIGHT-ORANGE (YELLOW) Urine Appearance CLEAR (CLEAR) Urine pH 6.0 (5.0-8.0) Urine Specific [place] 1.029 (1.001-1.031) Urine Protein 300 mg/dL (NEGATIVE) H Urine Glucose (UA) >=1000 mg/dL (NEGATIVE) H Urine Ketones NEGATIVE mg/dL (NEGATIVE) Urine Occult Blood SMALL (NEGATIVE) H Urine Nitrate NEGATIVE (NEGATIVE) Urine Bilirubin NEGATIVE mg/dL (NEGATIVE) Urine Urobilinogen 0.2 mg/dL (0.2-1.0) Urine Leukocyte Esterase NEGATIVE [place]/uL Urine RBC 2-5 /HPF (0-1) H Urine WBC 6-10 /HPF (0-1) H Urine Squamous Epithelial Cells RARE /HPF (0-2) Urine Bacteria RARE /HPF (None Seen) Urine Other Casts 1 /LPF (None Seen) Labs Reviewed?: Yes EKG Comment: 12 lead EKG done on 03/29/2025 at 7:11 p.m. showed a heart rate of 114, [place] interval 153, QRS 97, QT/QTC 316/437 Impression sinus tachycardia with nonspecific ST-T changes inferior cues noted. EKG rhythm strip shows a normal sinus rhythm with no acute STT wave changes. Interpreted by ER MD Dr. Sandoval X-RAY Comment: REASON: necrotic areas ORDERING PHYSICIAN: SOFIYA SANDOVAL MD PROCEDURE: FT 3VW LT - FOOT COMP 3+VWS LT EXAM: CR right foot, 3 View. CLINICAL HISTORY: necrotic areas COMPARISON: None provided. FINDINGS: BONES: No acute fracture or aggressive appearing osseous lesion. JOINTS: The joint spaces appear within normal limits. No dislocation. SOFT TISSUES: Subcutaneous edema and extensive subcutaneous emphysema throughout the foot. There is a 1.1 cm radiopacity projecting of the plantar soft tissues of the mid to hindfoot (just beneath the skin). It is unclear whether this reflects a foreign body, clinical correlation is advised. IMPRESSION: 1. Subcutaneous edema and extensive subcutaneous emphysema of the foot. Findings are concerning for infection resulting in gangrene. 2. 1.1 cm radiopaque foreign body versus calcification in plantar soft tissues; clinical correlation advised. /[place] DICTATED BY: MARA BADILLO Jr., MD DATE: 03/29/252139 ELECTRONICALLY SIGNED BY: MARA BADILLO Jr., MD DATE: 03/29/252139 ED Course ED Course Orders Procedure Category Date Status Time Iv Insertion CPOE 03/29/25 Transmitted 19:07 Pulse Ox(Continuous) RT 03/29/25 Transmitted 19:07 Vital Signs Per CPOE 03/29/25 Transmitted Routine 19:07 12 Lead Ekg Tracing- EKG 03/29/25 Logged Technical 19:07 Cbc With Differential LAB 03/29/25 Complete 19:07 Blood Cult BRIANDA 03/29/25 Logged 19:07 Urinalysis Profile LAB 03/29/25 Complete 19:07 Creatine Kinase, Total LAB 03/29/25 Complete 19:07 Troponin I High LAB 03/29/25 Complete Sensitivity 19:07 Lactic Acid LAB 03/29/25 Complete 19:07 Basic Metabolic Panel LAB 03/29/25 Complete 19:07 Chest 1vw RAD 03/29/25 Resulted 19:08 0.9%Nacl 1000ml (Ns PHA 03/29/25 In Process 1000ml) 19:30 Covid Rna Naat LAB 03/29/25 Complete 19:17 Influenza Type A & B, LAB 03/29/25 Complete Rapid 19:17 Rapid (Group A Strep) LAB 03/29/25 Complete 19:17 Acetaminophen 500mg PHA 03/29/25 Complete Tab (Tylenol 500mg T 19:30 Morphine 4mg Syg PHA 03/29/25 Complete (Morphine 4mg Syg) 19:30 Foot Comp 3+Vws Lt RAD 03/29/25 Resulted 19:21 Zosyn 3.375gm+Ns 50ml PHA 03/29/25 Complete (Zosyn 3.375gm+Ns 20:00 Vancomycin 1g/250ml PHA 03/29/25 Complete Kit (Vancomycin 1g/2 20:00 Culture Urine BRIANDA 03/29/25 In Process 20:32 Edm Admit Bridge Order ADM 03/29/25 Verified 21:01 Current Medications Medications (Trade) Dose Ordered Sig/Barak Route PRN Reason Start Time Stop Time Status Last Admin Dose Admin Acetaminophen (TYLenol 500MG TAB) 1,000 mg ONCE ONCE PO 03/29/25 19:30 03/29/25 19:31 DC 03/29/25 19:29 Morphine Sulfate (morPHINE 4MG SYG) 4 mg ONCE ONCE IVP 03/29/25 19:30 03/29/25 19:31 DC 03/29/25 19:39 Piperacillin Sod/ Tazobactam Sod (Zosyn 3.375gm+NS 50ml) 3.375 gm ONCE ONCE IV 03/29/25 20:00 03/29/25 20:01 DC 03/29/25 20:17 Sodium Chloride 2,667 ml @ 889 mls/hr ONCE ONCE IV 03/29/25 19:30 03/29/25 22:29 03/29/25 19:28 Vancomycin HCl (Vancomycin 1g/ 250ml Kit) 1 gm ONCE ONCE IV 03/29/25 20:00 03/29/25 20:01 DC Vital Signs Date Time Temp Pulse Resp B/P (MAP) Pulse Ox O2 Delivery O2 Flow Rate FiO2 03/29/25 20: 101.3 108 20 90/55 100 Room Air* 0 21 03/29/25 19:29 101.7 116 20 120/83 99 Room Air* 0 21 03/29/25 19:29 101.7 03/29/25 19:04 101.8 124 26 136/86 100 Room Air We will perform diagnostic labs, advanced imaging and administer medications according to the patient's complaint. Once the results are available, will review and personally interpreted the labs to rule out any acute life- threatening emergency the trach require immediate intervention and treatment. I will then re-evaluate the patient after treatment and diagnostic exams have return to determine whether the patient requires any further testing, can safely be discharged home or need further admission to hospital for additional treatment and evaluation. Labs reviewed CBC showed a leukocytosis of 21.5 hemoglobin 13.7 platelets 188. Lactic acid 3.1. Troponins are 11. Swabs for flu COVID and strep are negative. BNP 7 showed a sodium of 125 chloride 91 BUN and creatinine are 16 and 1.1 with a glucose of 347. Chest x-ray is unremarkable for any acute infiltrates. X-ray of the left foot is very abnormal see the full results report I recommended admission to the hospital for further management of infection as well as to evaluate for any surgical intervention. 9:00 p.m. patient accepted by [facility] mid-level provider for hospitalist group for admission and further management Medical Decision Making MDM Differential diagnosis: Severe sepsis related to left foot diabetic ulcer and necrotic changes, possible osteomyelitis, pneumonia, UTI Rationale: Tests considered and ordered secondary to shared decision making include: labs, ECG and radiology Previous outside records reviewed: Old ER visits. Risk of complication and/or morbidity or mortality of patient management: None Medications-Per medication reconciliation Need for hospitalization: Patient does meet criteria for hospitalization. Need for emergency major/minor surgery: No There are no social concerns with this patient. Prescription drug management Prescriptions will include symptomatic care Patient's prior external medical records from other ER visits were reviewed by me as indicated. Prior testing and results from previous visits were reviewed. Prior tests were taken into account with medical decision making and resource utilization, independent historian/historians were used to obtain complete medical history. I independently interpreted the test that were performed, results were reviewed by me and considered findings on radiology if ordered. Medical management and examination interpretation discussions were had by me with other qualified healthcare professionals as indicated for the patient's care. Problem List Problem List: (1) Severe sepsis (2) Ulcer of left foot due to type 2 diabetes mellitus (3) Coronary artery disease (4) Diabetic neuropathy (5) Leukocytosis (6) Acute kidney injury (7) Hyponatremia (8) Diabetes mellitus with hyperglycemia Critical Care Note Critical Time: 45 minutes Comment(s) Life-threatening illness; severe sepsis lactic acidosis, left foot abscess versus erysipelas, leukocytosis, diabetes mellitus, electrolyte abnormalities, acute kidney injury Risk of morbidity mortality-high Complexity of medical decision making-high (X) high probability of sudden clinically significant deterioration in the patient's condition required the highest level of my preparedness to intervene urgently. I provided critical care services requiring my direct and personal management as noted below; (x) chart data review (x) reviewing nurse's notes and/charts (x) documentation time (x) consultation collaboration on findings and therapy options (x) medication orders and management (x) re-evaluations (x) care, transfer of care, and discharge plans (x) ordering and interpreting studies (x) ordering and reviewing labs (x) obtaining necessary history from family, EMS, skilled nursing, private MD, surrogate decision makers because patient was unable to give history due to limitations in the mental status (x) aggregate critical care time was ( 45 ) minutes. This includes only time during which I was engaged in work directly related to the patient's care as described above whether at the bedside or elsewhere in the ER while the patient was critical. My time did not include minutes spent treating any other patients simultaneously or on activities that did not directly contribute to the patient's treatment. It did not include time spent performing other reported procedures or services of residents if any. Sofiya COOLEYCP DX & DISP Disposition: Inpatient Decision to Admit Time: 19:27 Departure Impression: Primary Impression: Severe sepsis Additional Impressions: Ulcer of left foot due to type 2 diabetes mellitus, Coronary artery disease, Diabetic neuropathy, Diabetes mellitus with hyperglycemia, Leukocytosis, Acute kidney injury Condition: Stable Additional Instructions: Patient was informed of all the diagnostic labs and procedures conducted in the emergency room today and demonstrated understanding of the results. I personally reviewed and interpreted all the diagnostic exams performed in the ER today. The patient will be admitted to the hospital for further treatment and evaluation. Disposition-admit to facility Condition-stable/guarded Course-uncertain at this time Pain status-decreased Assessment-exam unchanged Admission Certification- I certify that the patients status is appropriate and is based on my best clinical judgment and the patient's condition as documented in the medical records Referrals: VINNIE JARA MD (PCP) SOFIYA SANDOVAL MD Mar 29, 2025 19:31
[2025-03-29 19:32] LABS: CREATININE 1.1 mg/dL (0.5-1.3); GLOMERULAR FILTR. RATE CALC 76.0 mL/min (>90); GLUCOSE,RANDOM 347.0 mg/dL (70-105); SODIUM SERUM 125.0 mmol/L (136-145); UREA NITROGEN, BLOOD 16.0 mg/dL (7-18)
[2025-03-29 19:36] LABS: RAPID GROUP A STREP negative (NEGATIVE)
[2025-03-29 19:37] LABS: CREATINE KINASE, TOTAL 22.0 U/L (21-232)
[2025-03-29 19:37] LABS: SARS-CoV-2, RNA, NAAT NEGATIVE SARS CoV-2 (NEGATIVE)
[2025-03-29 19:44] LABS: INFLUENZA TYPE A Negative For Type A (NEGATIVE); INFLUENZA TYPE B Negative For Type B (NEGATIVE)
[2025-03-29] MEDS: ZOSYN 3.375GM +NS 50ML IV ONE (20:17)
[2025-03-29 20:28] LABS: APPEARANCE,URINE CLEAR (CLEAR); GLUCOSE, URINE (UA) >=1000 mg/dL (NEGATIVE); LEUKOCYTE ESTERASE ,URINE NEGATIVE Leu/uL (NEGATIVE); NITRATE,URINE NEGATIVE (NEGATIVE); OCCULT BLOOD,URINE SMALL (NEGATIVE)
[2025-03-29 20:29] LABS: ADD UA MICROSCOPIC YES
[2025-03-29 20:32] LABS: OTHER CASTS, URINE 1 /LPF (None Seen); SQUAMOUS EPITHELIAL CELL,UR RARE /HPF (0-2)
--- NOTE | 2025-03-29 20:38 | HMCIMG ---
EXAM: CR Chest, 1 View. CLINICAL HISTORY: Sepsis COMPARISON: Radiograph dated December 25, 2017. FINDINGS: LUNGS: The lungs show no infiltrate or other acute finding. PLEURAL SPACES: No evidence of pleural effusion or pneumothorax. MEDIASTINUM: The cardiomediastinal silhouette is within normal limits. BONES: No acute osseous abnormality. IMPRESSION: No acute cardiopulmonary pathology is evident. /[place]
[2025-03-29 20:39] VITALS: TEMP 101.3
--- NOTE | 2025-03-29 20:40 | HMCIMG ---
EXAM: CR right foot, 3 View. CLINICAL HISTORY: necrotic areas COMPARISON: None provided. FINDINGS: BONES: No acute fracture or aggressive appearing osseous lesion. JOINTS: The joint spaces appear within normal limits. No dislocation. SOFT TISSUES: Subcutaneous edema and extensive subcutaneous emphysema throughout the foot. There is a 1.1 cm radiopacity projecting of the plantar soft tissues of the mid to hindfoot (just beneath the skin). It is unclear whether this reflects a foreign body, clinical correlation is advised. IMPRESSION: 1. Subcutaneous edema and extensive subcutaneous emphysema of the foot. Findings are concerning for infection resulting in gangrene. 2. 1.1 cm radiopaque foreign body versus calcification in plantar soft tissues; clinical correlation advised. /[place]
--- NOTE | 2025-03-29 21:10 | HP ---
History of Present Illness Reason for Visit: foot pain Referring MD: Dr. Lechuga History of Present Illness Mr. Pires is a 60 year old male that was seen and examined today on 03/29/2025. Patient is a good historian of personal health Patient states that he came to the emergency department with a chief complaint of left foot pain. Onset was three days ago. Location is left foot plantar aspect. Duration is on and off. Character is described as sharp. There was no alleviating factors. Symptoms are aggravated with walking. Patient reports associated redness and discoloration to the left foot plantar aspect midfoot area. Today in the emergency department WBCs 21.5, left shift neutrophils 86 %, lactic acid 3.1, glucose 367 mg/dL, urinalysis unremarkable, flu negative, COVID negative. Additionally patient has a temperature of 101.5, heart rate 124, respirations 26 and identified source of infection being in the left foot patient met clinical sepsis criteria. Left foot x-ray shows soft tissue swelling and emphysema. Past Medical History Patient History: Carcinomas MOTHER, Onset:Unknown Cardiovascular disease MOTHER, Onset:Unknown Completed stroke MOTHER, Onset:Unknown Diabetes mellitus BROTHER, Onset:Unknown BROTHER, Onset:Unknown ADDITIONAL PAST MEDICAL HISTORY: [Diabetes mellitius type2, hypertension, hyperlipidemia] SOCIAL HISTORY: [Negative for smoking, alcohol use, drug use. Patient states that he lives alone. Patient is typically independent of his ADLs. Patient denies difficulty pain is bills.] SURGICAL HISTORY: [Appendectomy, right foot TMA] Review of Systems General: No Fever, No Chills, No Night Sweats, No Fatigue, No Malaise, No Appetite, No Other HEENT: No Head Aches, No Visual Changes, No Eye Pain, No Ear Pain, No Dysphasia, No Sinus Congestion, No Post Nasal Drip, No Sore Throat, No Other Pulmonary: No Dyspnea, No Cough, No Pleuritic Chest Pain, No Other Cardiovascular: No: Chest Pain, Palpitations, Orthopnea, Paroxysmal Noc. Dyspnea, Edema, Lt Headedness, Other Gastrointestinal: No: Nausea, Vomiting, Abdominal Pain, Diarrhea, Constipation, Melena, Hematochezia, Other Genitourinary: No Dysuria, No Frequency, No Incontinence, No Hematuria, No Retention, No Other Musculoskeletal: foot pain; No: other, neck pain, shoulder pain, arm pain, back pain, hand pain, leg pain Skin: No Urticaria; Rash; No Other Neurological: No: Weakness, Numbness, Incoordination, Change in speech, Confusion, Seizures, Other Allergies: Coded Allergies: No Known Drug Allergies (Verified Allergy, Mild, 12/23/15) Scheduled Aspirin (Aspir 81), 81 MG PO DAILY, (Reported) Carvedilol (Coreg), 12.5 MG PO BID Empagliflozin (Jardiance), 25 MG PO DAILY, (Reported) Gabapentin (Neurontin), 600 MG PO BID Glimepiride (Glimepiride), 4 MG PO HS, (Reported) Insulin Glargine,Hum.rec.anlog (Lantus), 25 UNITS SQ HS Liraglutide (Victoza 2-Lorenzo), 1.8 MG SQ DAILY, (Reported) Lisinopril (Lisinopril), 10 MG PO BID Meclizine HCl (Meclizine HCl), 25 MG PO BID, (Reported) Metformin HCl (Metformin HCl ER), 1,000 MG PO BIDMEALS, (Reported) Methylprednisolone (Medrol), 4 MG PO AD Pioglitazone HCl (Pioglitazone HCl), 45 MG PO DAILY, (Reported) Durable Medical Equipment Converse, Insulin Disposable (Easy Comfort Pen Converse), EACH HS, (DME) Exam Vital Signs Vital Signs Date Time Temp Pulse Resp B/P (MAP) Pulse Ox O2 Delivery O2 Flow Rate FiO2 03/29/25 20:25 101.3 108 20 90/55 100 Room Air* 0 21 General Appearance: Alert, Oriented X3, Cooperative HEENT: Atraumatic, EOMI Respiratory: Clear to auscultation, Normal air movement, NL respiratory effort Cardiovascular: Normal S1, Normal S2, Other (Positive tachycardia) Abdominal: Normal bowel sounds, Soft, No tenderness, No hepatospenomegaly Extremities: Other (Right foot TMA) Skin: Other (Left foot plantar aspect midfoot discoloration, positive erythema) Neuro: Normal speech, Strength at 5/5 X4 ext, Sensation intact, Cranial nerves 3-12 NL Psych/Mental Status: Mental status NL, Mood NL, Thoughts/Content NL Assessment/Plan ASSESSMENT: [ Sepsis, POA Left foot cellulitis, POA Left foot gangrene, POA Uncontrolled Diabetes mellitius type2, POA Leukocytosis, POA Hyperlactatemia, POA Hypertension Hyperlipidemia] PLAN: [ Admit patient to medical floor as inpatient status. Place patient on telemetry monitoring. Sepsis, leukocytosis, hyperlactatemia, left foot cellulitis: Patient received fluid resuscitation with a 0.9% NS 30 mL/kg Empiric antibiotic therapy with Zosyn vancomycin Check blood culture, follow up with the results Check procalcitonin, follow up with the results Repeat lactic acid follow up with the results Left foot ganglion: Consult Podiatry Service, Dr. Lechuga Keep patient NPO IV fluid maintenance therapy lactated Ringer's at 75 mL/HR Check preprocedure labs, CBC, BMP, magnesium, phosphorus, PTT, UA, type and screen, EKG, CXR Check arterial ultrasound bilateral lower extremities to evaluate for healing potential. Diabetes mellitus type 2: Check hemoglobin A1c in a.m. Glucometer checks a.c. and HS 1800 ADA diet Humulin R sliding scale Hypertension, hyperlipidemia: Consider resuming home medications once they are reconciled. At time of admission home medications reconciled. For now: Hydralazine 10 mg IV every 4 hours for systolic blood pressure greater than 160 mmHg Atorvastatin as mg by mouth once daily GI prophylaxis, famotidine DVT prophylaxis, Marco's and SCDs ADVANCED CARE PLANNING 1. Which of the following were discussed? Hospice Care - Yes Therapeutic options - yes Advance Directives - Yes - patient states he does not have any advance directives in place at this time, however his daughter Shelly Nguyen can make decisions for him if he becomes unable. Other discussions - patient wishes to remain a full code 2. Discussed with who? Patient 3. Voluntary nature of this service was explained to the patient? Yes 4. Amount of time spent - ___16 minutes____ 5. Reviewed by Physician? (if this service was performed by NPP) Yes This document was generated in part using voice recognition software, occasional wrong word or sound alike substitutions may have occurred due to the inherent limitations of voice recognition software. Read the chart carefully and recognize using context, where the substitutions have occurred. Although every effort was made to edit the content, tube blower and typing errors may occur ATTESTATION BY PHYSICIAN I have seen and examined the patient. I reviewed the documentation, medical decision making, and treatment plan as noted by the mid-level provider above. I agree with the findings and plan of care. ] SH[facility]EL[facility] Mar 29, 2025 21:10
[2025-03-29] MEDS ORDERED: VANCOMYCIN PROTOCOL PER PHARMACY IV SCH (21:30)
[2025-03-29] MEDS: VANCOMYCIN KIT 1 GM/250 ML IV.KIT IV ONE (21:37)
[2025-03-29] MEDS: LACTATED RINGERS 1000ML 1,000 ML IV SCH (22:11)
--- NOTE | 2025-03-29 22:18 | NUR ---
REPORT GIVEN TO NURSE TOY
[2025-03-29 22:27] VITALS: BP 100/55; PULSE 90; RESP 20; TEMP 98
--- NOTE | 2025-03-29 23:20 | NUR ---
PATIENT BEHAVIOR While asking patient CSSRS Screening questions patient stated that he had "A list of people he would take with him if he ever took his life." Notified charge nurse and ARCHITECT MARINE Lamberto Moffett. Order for a 1:1 sitter and a TelePsych consult in the AM.
--- NOTE | 2025-03-29 23:20 | NUR ---
MEDICATIONS Patient does not have home medications at bedside. Was told by the patient to call [facility] to request his medications. Patient was unable to provide phone number.
[2025-03-30] VITALS (7 sets, daily range): BP systolic 100–148; BP diastolic 55–81; PULSE 90–114; RESP 18–20; TEMP 98–99.5; O2SAT 97
[2025-03-30] MEDS: 0.9% NACL 500ML IV.SOLN 500 ML IV ONE (00:39)
[2025-03-30] MEDS: ZOSYN 3.375GM +NS 50ML IV SCH (03:48)
[2025-03-30 05:19] LABS: IMMATURE GRANULOCYTE ABSOLUTE 0.17 K/uL (0-1); NUCLEATED RED BLOOD CELLS 0.0 % (0.0-0.19); PLATELET COUNT (AUTO) 193 K/uL (130-400); RED BLOOD CELL COUNT(AUTO) 4.28 MIL/uL (4.50-6.20); RED CELL DISTRIBUTION WIDTH 12.5 % (11.0-15.5); WHITE BLOOD COUNT (AUTO) 21.4 K/uL (4.8-10.8)
[2025-03-30 05:39] LABS: CREATININE 1.1 mg/dL (0.5-1.3); GLOMERULAR FILTR. RATE CALC 76.0 mL/min (>90); GLUCOSE,RANDOM 225.0 mg/dL (70-105); INR 1.25 (0.85-1.15); PHOSPHORUS 1.7 mg/dL (2.5-4.9); SODIUM SERUM 130.0 mmol/L (136-145); UREA NITROGEN, BLOOD 18.0 mg/dL (7-18)
[2025-03-30] MEDS: FAMOTIDINE 20MG TAB PO SCH (09:00)
[2025-03-30] MEDS: VANCOMYCIN 1G/250ML KIT 250 ML IV SCH (09:02)
--- NOTE | 2025-03-30 10:03 | EKG ---
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
--- NOTE | 2025-03-30 10:58 | CONS ---
CONSULT NOTE: Reason for consult: SI Reason for medical admission: Mr. Pires is a 60 year old male that was seen and examined today on 03/29/2025. Patient is a good historian of personal health Patient states that he came to the emergency department with a chief complaint of left foot pain. Onset was three days ago. Location is left foot plantar aspect. Duration is on and off. Character is described as sharp. There was no alleviating factors. Symptoms are aggravated with walking. Patient reports associated redness and discoloration to the left foot plantar aspect midfoot area. Today in the emergency department WBCs 21.5, left shift neutrophils 86 %, lactic acid 3.1, glucose 367 mg/dL, urinalysis unremarkable, flu negative, COVID negative. Additionally patient has a temperature of 101.5, heart rate 124, respirations 26 and identified source of infection being in the left foot patient met clinical sepsis criteria. Left foot x-ray shows soft tissue swelling and emphysema. Per nursing notes: While asking patient CSSRS Screening questions patient stated that he had "A list of people he would take with him if he ever took his life." Notified charge nurse and CHILD ADOLESCENT PSYCHIATRIST Lamberto Moffett. Order for a 1:1 sitter and a TelePsych consult in the AM. CC: "apparently not that good" HPI: Patient states he is going to lose one of his feet. His doctor's are recommending amputation of his L foot. Patient states he was just joking when he made the above statements. He denied current or hx of depression. He denied anxiety but he does have "some stress." He denied current or hx of AVH. He denied current or hx of paranoia. He denied hx of psychiatric hospitalizations. He adamantly denied any hx of SI or self-harm. He denied hx of violence or aggression towards others. He denied current drug use. He reports that about 20 years ago he abused pain medications. He reports he does not drink alcohol or smoke cigarettes. He was just told today about the amputation of his other foot. Patient is a but he does not get any outpatient services at the [facility]. He denied any issues with PTSD. He thinks his mental health is fine and he does not have any questions or concerns regarding his mental healthcare. He is able to contract for safety of self and others. He is hoping that he can avoid amputation with antibiotics and he is asking the doctors to give him a few days think about it and talk to his family. He reports he has been sleeping well. He has good appetite but he says he has been NPO and they haven't given him anything. He is able to contract for safety of self and others, no acute safety concerns. Current psychiatric medications: Gabapentin - still waiting on medication list from his adult daycare Vital Signs Date Time Temp Pulse Resp B/P (MAP) Pulse Ox O2 Delivery O2 Flow Rate FiO2 03/30/25 04:00 98.2 114 19 148/81 98 Room Air 03/30/25 00:55 0 21 Current Medications Medications Dose Ordered Sig/Barak Start Time Stop Time Status Last Admin Insulin Human Regular INSULIN SLIDING SCAL... ACHS 03/30/25 07:30 04/29/25 07:29 03/30/25 06:12 Vancomycin HCl 1 each AD 03/29/25 21:30 04/12/25 21:29 Piperacillin Sod/ Tazobactam Sod 3.375 gm Q8H 03/30/25 04:00 04/09/25 03:59 03/30/25 03:48 Acetaminophen 650 mg Q6H PRN 03/29/25 21:30 04/28/25 21:29 Famotidine 20 mg DAILY 03/30/25 09:00 04/29/25 08:59 Hydralazine HCl 10 mg Q6H PRN 03/29/25 21:30 04/28/25 21:29 Lactated Ringer's 1,000 ml @ 75 mls/hr [id number] 03/29/25 21:30 04/28/25 21:29 03/29/25 22:11 Morphine Sulfate 2 mg Q4H PRN 03/29/25 21:30 04/05/25 21:29 03/30/25 10:12 Ondansetron HCl 4 mg Q6H PRN 03/29/25 21:30 04/28/25 21:29 Atorvastatin Calcium 40 mg HS 03/30/25 21:00 04/29/25 20:59 Vancomycin HCl 250 ml @ 125 mls/hr Q12H 03/30/25 09:00 04/09/25 08:59 03/30/25 09:02 Magnesium Sulfate 50 ml @ 0 mls/hr PROTOCOL PRN 03/30/25 08:00 04/29/25 07:59 Laboratory Tests Test 03/29/25 19:14 03/29/25 19:18 03/29/25 20:02 03/29/25 22:40 White Blood Count 21.5 K/uL (4.8-10.8) H Red Blood Count 4.42 MIL/uL (4.50-6.20) L Hemoglobin 13.7 g/dL (14.0-18.0) L Hematocrit 38.4 % (42-54) L Mean Corpuscular Volume 86.9 fL (79-99) Mean Corpuscular Hemoglobin 31.0 pg (27.0-33.0) Mean Corpuscular Hemoglobin Concent 35.7 g/dL (32.0-36.0) Red Cell Distribution Width 12.5 % (11.0-15.5) Platelet Count 188 K/uL (130-400) Mean Platelet Volume 11.1 fL (7.5-10.5) H Immature Granulocyte % (Auto) 1.3 % (0-1) H Neutrophils (%) (Auto) 86.6 % (40.0-77.0) H Lymphocytes (%) (Auto) 7.1 % (21.0-51.0) L Monocytes (%) (Auto) 4.7 % (3.0-13.0) Eosinophils (%) (Auto) 0.1 % (0.0-8.0) Basophils (%) (Auto) 0.2 % (0.0-5.0) Neutrophils # (Auto) 18.6 K/uL (1.8-7.7) H Lymphocytes # (Auto) 1.5 K/uL (1.0-4.8) Monocytes # (Auto) 1.0 K/uL (0.1-1.0) Eosinophils # (Auto) 0.03 K/uL (0.00-0.70) Basophils # (Auto) 0.05 K/uL (0.00-0.20) Absolute Immature Granulocyte (auto 0.28 K/uL (0-1) Nucleated Red Blood Cells 0.0 % (0.0-0.19) White Cell Morphology Comment See comments Sodium Level 125 mmol/L (136-145) L Potassium Level 4.2 mmol/L (3.5-5.1) Chloride Level 91 mmol/L (101-111) L Carbon Dioxide Level 28 mmol/L (21-32) Blood Urea Nitrogen 16 mg/dL (7-18) Creatinine 1.1 mg/dL (0.5-1.3) Glomerular Filtration Rate Calc 76 mL/min (>90) Random Glucose 347 mg/dL (70-105) H Hemoglobin A1c 8.5 % (4.0-6.0) H Estimated Average Glucose (eAG) 197 mg/dL (70-126) H Lactic Acid Level 3.1 mmol/L (0.8-2.5) H 1.4 mmol/L (0.8-2.5) Total Calcium 7.8 mg/dL (8.5-10.1) L Total Creatine Kinase 22 U/L (21-232) # Troponin I High Sensitivity 11 ng/L (4-75) Procalcitonin 1.54 ng/mL (0.05-0.5) H Influenza Type A Antigen Negative For Type A Influenza Type B Antigen Negative For Type B SARS-CoV-2, RNA, NAAT NEGATIVE SARS CoV-2 Group A Streptococcus Rapid negative (NEGATIVE) Urine Color LIGHT-ORANGE (YELLOW) Urine Appearance CLEAR (CLEAR) Urine pH 6.0 (5.0-8.0) Urine Specific [place] 1.029 (1.001-1.031) Urine Protein 300 mg/dL (NEGATIVE) H Urine Glucose (UA) >=1000 mg/dL (NEGATIVE) H Urine Ketones NEGATIVE mg/dL (NEGATIVE) Urine Occult Blood SMALL (NEGATIVE) H Urine Nitrate NEGATIVE (NEGATIVE) Urine Bilirubin NEGATIVE mg/dL (NEGATIVE) Urine Urobilinogen 0.2 mg/dL (0.2-1.0) Urine Leukocyte Esterase NEGATIVE Gilbert/uL Urine RBC 2-5 /HPF (0-1) H Urine WBC 6-10 /HPF (0-1) H Urine Squamous Epithelial Cells RARE /HPF (0-2) Urine Bacteria RARE /HPF (None Seen) Urine Other Casts 1 /LPF (None Seen) Test 03/30/25 01:50 03/30/25 05:10 03/30/25 05:25 Whole Blood Glucose 266 MG/DL (70-110) H 205 MG/DL (70-110) H White Blood Count 21.4 K/uL (4.8-10.8) H Red Blood Count 4.28 MIL/uL (4.50-6.20) L Hemoglobin 13.3 g/dL (14.0-18.0) L Hematocrit 36.9 % (42-54) L Mean Corpuscular Volume 86.2 fL (79-99) Mean Corpuscular Hemoglobin 31.1 pg (27.0-33.0) Mean Corpuscular Hemoglobin Concent 36.0 g/dL (32.0-36.0) Red Cell Distribution Width 12.5 % (11.0-15.5) Platelet Count 193 K/uL (130-400) Mean Platelet Volume 11.1 fL (7.5-10.5) H Immature Granulocyte % (Auto) 0.8 % (0-1) Neutrophils (%) (Auto) 86.6 % (40.0-77.0) H Lymphocytes (%) (Auto) 7.8 % (21.0-51.0) L Monocytes (%) (Auto) 4.5 % (3.0-13.0) Eosinophils (%) (Auto) 0.0 % (0.0-8.0) Basophils (%) (Auto) 0.3 % (0.0-5.0) Neutrophils # (Auto) 18.5 K/uL (1.8-7.7) H Lymphocytes # (Auto) 1.7 K/uL (1.0-4.8) Monocytes # (Auto) 1.0 K/uL (0.1-1.0) Eosinophils # (Auto) 0.01 K/uL (0.00-0.70) Basophils # (Auto) 0.06 K/uL (0.00-0.20) Absolute Immature Granulocyte (auto 0.17 K/uL (0-1) Nucleated Red Blood Cells 0.0 % (0.0-0.19) Prothrombin Time 13.0 SEC (9.6-11.6) H Prothromb Time International Ratio 1.25 (0.85-1.15) H Activated Partial Thromboplast Time 32.8 SEC (26.3-35.5) Sodium Level 130 mmol/L (136-145) L Potassium Level 3.8 mmol/L (3.5-5.1) Chloride Level 97 mmol/L (101-111) L Carbon Dioxide Level 24 mmol/L (21-32) Blood Urea Nitrogen 18 mg/dL (7-18) Creatinine 1.1 mg/dL (0.5-1.3) Glomerular Filtration Rate Calc 76 mL/min (>90) Random Glucose 225 mg/dL (70-105) H Lactic Acid Level 1.9 mmol/L (0.8-2.5) Total Calcium 7.9 mg/dL (8.5-10.1) L Phosphorus Level 1.7 mg/dL (2.5-4.9) L Magnesium Level 1.40 mg/dL (1.80-2.40) L MSE: Patient is a 60 yo male. He is alert and oriented x 3. Speech is fluent. Eye contact is consistent. No AIMS or psychomotor disturbances. Gait is not evaluated. Mood is "not great" and affect is neutral and reactive. Thought process is linear and goal directed. Thought content is negative for SI, HI, AVH. Memory and cognition are grossly intact. Insight and judgment are fair. Assessment: Adjustment disorder Recommendations: -Patient is not currently suicidal, homicidal or psychotic and he does not require inpatient psychiatric admission at this time. He is able to contract for safety of self and others. He does not endorse any mental health symptoms. -No acute safety concerns at this time. Patient does not meet criteria for 1:1 obervation. -Patient not interested in any psychotropic medications -Patient is dealing with possible amputation and he is very upset aobut this so he may benefit from referrals to outpatient therapy to deal with this stressful situation -Psychiatry signing off. *15 mins was spent [id number] with patient and 25 mins was spent on chart review and documentation ARASH ROBERT DO Mar 30, 2025 10:58
[2025-03-30] MEDS: MAGNESIUM 2GM PREMIX 50ML 50 ML IV PRN (12:14)
--- NOTE | 2025-03-30 15:29 | PN ---
[facility] PROGRESS NOTE Date of Service: Mar 30, 2025 Time of Service: 14:58 SUBJECTIVE: Mr. Pires is a 60 year old male with past medical history of hypertension, hyperlipidemia, type 2 diabetes mellitus, appendectomy, right foot TMA was seen and examined today on 03/29/2025. Patient is a good historian of personal health Patient states that he came to the emergency department with a chief complaint of left foot pain. Onset was three days ago. Location is left foot plantar aspect. Duration is on and off. Character is described as sharp. There was no alleviating factors. Symptoms are aggravated with walking. Patient reports associated redness and discoloration to the left foot plantar aspect midfoot area. Today in the emergency department WBCs 21.5, left shift neutrophils 86 %, lactic acid 3.1, glucose 367 mg/dL, urinalysis unremarkable, flu negative, COVID negative. Additionally patient has a temperature of 101.5, heart rate 124, respirations 26 and identified source of infection being in the left foot patient met clinical sepsis criteria. Left foot x-ray shows soft tissue swelling and emphysema. 03/30/25: The patient is examined at the bedside. He is very upset that he is on 1:1 sitter. He said that he joked about the suicidal thoughts and wanting to take people with him. He was angry and demanded to have some food as he was kept NPO for the possibility of amputation surgery. He is given some jelly and 1 dose of morphine for his pain. Tele psych was done and cleared him of 1:[address] Lechuga the city routeman visited him this morning and suggested him the possibility of amputation of his Lft leg due to gas gangrene. He was transitioned to consistent carb diet and then General surgery and Infectious Disease consult was placed on him by Dr. Lechuga. On labs his magnesium is 1.4 and phosphorus is 1.7. He is on vancomycin1 g IV q.12h, Zosyn IV q.8h. Arterial ultrasound is pending. We plan to replace his magnesium and monitor his magnesium and phosphorus levels for tomorrow. REVIEW OF SYSTEMS CONSTITUTIONAL: Denies fevers, chills, or night sweats. No unintentional weight loss reported. NEUROLOGICAL: Denies headache, amaurosis fugax, motor weakness, sensory deficit, vertigo/spinning sensation, gait abnormalities, or tremors. ENT: No hearing loss, otalgia, otorrhea, rhinitis, rhinorrhea, hoarseness, or sore throat. CARDIOVASCULAR: Denies any exertional angina, dyspnea on exertion, orthopnea, paroxysmal nocturnal dyspnea, palpitations, life-threatening arrhythmias, claudication. PULMONARY: Denies any shortness of breath, cough, phlegm/sputum, hemoptysis, pleuritic chest pain. SLEEP: Denies morning headaches, daytime somnolence or napping. Denies difficulty falling asleep, staying asleep, waking from sleep. Denies knowledge of snoring. GASTROINTESTINAL: Denies any type of dysphagia to either liquids or solids. Denies nausea, vomiting, pyrosis, early satiety, abdominal pain, diarrhea, constipation, or changes in stool consistency or caliber. Denies coffee-ground emesis, hematemesis, hematochezia, or melanotic stools. GENITOURINARY: Denies frequency, urgency, nocturia, hematuria or incontinence (Storage/Irritative symptoms.) Low urinary stream, straining to void, urinary intermittency or hesitancy, splitting of the voiding stream, terminal dribbling. ENDOCRINOLOGIC: Denies polyuria, polydipsia, polyphagia or heat/cold intolerances. HEMATOLOGIC: Denies thrombophilia/previous clots, or coagulopathy/bleeding disorders. ONCOLOGIC: Denies personal history of malignancy. DERMATOLOGIC: Swelling, redness, discoloration, multiple ulcers on the left foot. PSYCHIATRIC: Acute stress due to the possibility of left leg amputation, Denies any suicidal or homicidal ideation. Denies hallucinations. EXTREMITIES: Right foot amputated, swelling, redness, multiple ulcers on the left foot PHYSICAL EXAM GENERAL APPEARANCE: The patient is awake, alert, and oriented, in no acute cardiopulmonary distress. NEUROLOGICAL: Cranial nerves II-XII grossly intact. Motor is 5/5 in bilateral upper and lower extremities proximal to distal. No sensory deficits. HEENT: Face is symmetric. Pupils are equal and reactive. Extraocular movements are intact. NECK: Supple. No JVD. No thyromegaly. No submental, submandibular, pre- /postauricular, occipital or supraclavicular lymphadenopathy. CHEST: Normal chest expansion. No Telemetry. LUNGS: Absence of any rales, rhonchi or any wheezing. CARDIOVASCULAR: Regular. S1 and S2 normal. No appreciable rubs, murmurs or gallops. ABDOMEN: Soft, nontender, and nondistended. There is no rebound, voluntary guarding, or rigidity. : Deferred. No [place]. EXTREMITIES: Right foot amputated, left foot is red, swollen, has multiple ulcers. SKIN: Redness and discoloration of the left foot Vital Signs (last 8hr) Date Time Temp Pulse Resp B/P (MAP) Pulse Ox O2 Delivery O2 Flow Rate FiO2 03/30/25 08:00 97 Room Air* 0 21 LABS: Laboratory: Test 03/30/25 11:50 03/30/25 05:10 03/29/25 20:02 03/29/25 19:18 Range/Units Whole Blood Glucose 229 H 70-110 MG/DL Bedside Glucose Comment Notified Nurse White Blood Count 21.4 H 4.8-10.8 K/uL Red Blood Count 4.28 L 4.50-6.20 MIL/uL Hemoglobin 13.3 L 14.0-18.0 g/dL Hematocrit 36.9 L 42-54 % Mean Corpuscular Volume 86.2 79-99 fL Mean Corpuscular Hemoglobin 31.1 27.0-33.0 pg Mean Corpuscular Hemoglobin Concent 36.0 32.0-36.0 g/dL Red Cell Distribution Width 12.5 11.0-15.5 % Platelet Count 193 130-400 K/uL Mean Platelet Volume 11.1 H 7.5-10.5 fL Immature Granulocyte % (Auto) 0.8 0-1 % Neutrophils (%) (Auto) 86.6 H 40.0-77.0 % Lymphocytes (%) (Auto) 7.8 L 21.0-51.0 % Monocytes (%) (Auto) 4.5 3.0-13.0 % Eosinophils (%) (Auto) 0.0 0.0-8.0 % Basophils (%) (Auto) 0.3 0.0-5.0 % Neutrophils # (Auto) 18.5 H 1.8-7.7 K/uL Lymphocytes # (Auto) 1.7 1.0-4.8 K/uL Monocytes # (Auto) 1.0 0.1-1.0 K/uL Eosinophils # (Auto) 0.01 0.00-0.70 K/uL Basophils # (Auto) 0.06 0.00-0.20 K/uL Absolute Immature Granulocyte (auto 0.17 0-1 K/uL Nucleated Red Blood Cells 0.0 0.0-0.19 % Prothrombin Time 13.0 H 9.6-11.6 SEC Prothromb Time International Ratio 1.25 H 0.85-1.15 Activated Partial Thromboplast Time 32.8 26.3-35.5 SEC Sodium Level 130 L 136-145 mmol/L Potassium Level 3.8 3.5-5.1 mmol/L Chloride Level 97 L 101-111 mmol/L Carbon Dioxide Level 24 21-32 mmol/L Blood Urea Nitrogen 18 7-18 mg/dL Creatinine 1.1 0.5-1.3 mg/dL Glomerular Filtration Rate Calc 76 >90 mL/min Random Glucose 225 H 70-105 mg/dL Lactic Acid Level 1.9 0.8-2.5 mmol/L Total Calcium 7.9 L 8.5-10.1 mg/dL Phosphorus Level 1.7 L 2.5-4.9 mg/dL Magnesium Level 1.40 L 1.80-2.40 mg/dL Urine Color LIGHT-ORANGE YELLOW Urine Appearance CLEAR CLEAR Urine pH 6.0 5.0-8.0 Urine Specific [place] 1.029 1.001-1.031 Urine Protein 300 H NEGATIVE mg/dL Urine Glucose (UA) >=1000 H NEGATIVE mg/dL Urine Ketones NEGATIVE NEGATIVE mg/dL Urine Occult Blood SMALL H NEGATIVE Urine Nitrate NEGATIVE NEGATIVE Urine Bilirubin NEGATIVE NEGATIVE mg/dL Urine Urobilinogen 0.2 0.2-1.0 mg/dL Urine Leukocyte Esterase NEGATIVE NEGATIVE Gilbert/uL Urine RBC 2-5 H 0-1 /HPF Urine WBC 6-10 H 0-1 /HPF Urine Squamous Epithelial Cells RARE 0-2 /HPF Urine Bacteria RARE None Seen /HPF Urine Other Casts 1 None Seen /LPF Influenza Type A Antigen Negative For Type A NEGATIVE Influenza Type B Antigen Negative For Type B NEGATIVE SARS-CoV-2, RNA, NAAT NEGATIVE SARS CoV-2 NEGATIVE Group A Streptococcus Rapid negative NEGATIVE Test 03/29/25 19:14 Range/Units White Cell Morphology Comment See comments Hemoglobin A1c 8.5 H 4.0-6.0 % Estimated Average Glucose (eAG) 197 H 70-126 mg/dL Total Creatine Kinase 22 # 21-232 U/L Troponin I High Sensitivity 11 4-75 ng/L Procalcitonin 1.54 H 0.05-0.5 ng/mL Current Medications Medications (Trade) Dose Ordered Sig/Barak Route PRN Reason Start Time Stop Time Status Last Admin Dose Admin Acetaminophen (TYLenol 325MG TAB) 650 mg Q6H PRN PO TEMPERATURE GREATER THAN 101.5 03/29/25 21:30 04/28/25 21:29 Atorvastatin Calcium (LIPItor 40MG) 40 mg HS PO 03/30/25 21:00 04/29/25 20:59 Famotidine (Pepcid 20mg Tab) 20 mg DAILY PO 03/30/25 09:00 04/29/25 08:59 Hydralazine HCl (APRESOLine 20MG INJ) 10 mg Q6H PRN IV For:SBP above 160;DBP above 90 03/29/25 21:30 04/28/25 21:29 Insulin Human Regular (humuLIN R 100 UNIT/ML 3ML) INSULIN SLIDING SCAL... ACHS SQ 03/30/25 07:30 04/29/25 07:29 03/30/25 12:28 3 UNIT Lactated Ringer's 1,000 ml @ 75 mls/hr [id number] IV 03/29/25 21:30 04/28/25 21:29 03/29/25 22:11 75 MLS/HR Magnesium Sulfate 50 ml @ 0 mls/hr PROTOCOL PRN IV hypomagnesemia 03/30/25 08:00 04/29/25 07:59 03/30/25 12:14 25 MLS/HR Morphine Sulfate (morPHINE 2MG SYG) 2 mg Q4H PRN IVP SEVERE PAIN (7-10) 03/29/25 21:30 04/05/25 21:29 03/30/25 10:12 2 MG Ondansetron HCl (zoFRAN 4MG INJ) 4 mg Q6H PRN IV NAUSEA/VOMITING 03/29/25 21:30 04/28/25 21:29 Piperacillin Sod/ Tazobactam Sod (Zosyn 3.375gm+NS 50ml) 3.375 gm Q8H IV 03/30/25 04:00 04/09/25 03:59 03/30/25 12:13 3.375 GM Vancomycin HCl 250 ml @ 125 mls/hr Q12H IV 03/30/25 09:00 04/09/25 08:59 03/30/25 09:02 125 MLS/HR Vancomycin HCl (Vancomycin Protocol) 1 each AD IV 03/29/25 21:30 04/12/25 21:29 DIAGNOSTICS / RADIOLOGY: [ ] ASSESSMENT: Sepsis Leukocytosis Gas gangrene of left foot Left foot ganglion Diabetes mellitus type 2 Hypertension Hyperlipidemia PLAN: Sepsis, leukocytosis, gas gangrene of left foot His WBC count downtrended from 21.5-21.4 With neutrophilic predominance. Empiric antibiotic therapy with Zosyn vancomycin Check blood culture, follow up with the results Foot x-ray showed: 1. Subcutaneous edema and extensive subcutaneous emphysema of the foot. Findings are concerning for infection resulting in gangrene. 2. 1.1 cm radiopaque foreign body versus calcification in plantar soft tissues; General surgery consult is placed today Infectious disease consult is placed today Podiatry consult done today. Left foot ganglion: Podiatry service done by Dr. Lechuga today Patient progressed to consistent carb diet by Dr. Lechuga. IV fluid maintenance therapy lactated Ringer's at 75 mL/HR Monitor labs, CBC, BMP, magnesium, phosphorus Arterial ultrasound bilateral lower extremities is pending Diabetes mellitus type 2: HB A1c is 8.5 Glucometer checks a.c. and HS 1800 ADA diet Humulin R sliding scale Hypertension, hyperlipidemia: Contact [facility] for patient's home medication info Consider resuming home medications once they are reconciled. At time of admission home medications reconciled. Hydralazine 10 mg IV every 4 hours for systolic blood pressure greater than 160 mmHg Atorvastatin as mg by mouth once daily GI prophylaxis, famotidine DVT prophylaxis, Marco's and SCDs ATTESTATION BY PHYSICIAN I have seen and examined the patient. I reviewed the documentation, medical decision making, and treatment plan as noted by the resident provider above. I agree with the findings and plan of care. Mike Cowart MD, BHAVANI MD Mar 30, 2025 15:29
--- NOTE | 2025-03-30 18:24 | CONS ---
HISTORY OF PRESENT ILLNESS: The patient is a very pleasant 60-year-old diabetic, Latin-Chinese male, known to me from previous encounters. I had performed a transmetatarsal amputation on his right foot that has subsequently healed. He is a patient of Dr. Pradeep Gayle from [facility]. Apparently, he has not seen Dr. Gayle in several months. The patient is concerned of an infection to his left foot with pain, redness, and swelling. He has had x-rays to the left foot, subcutaneous edema and emphysema. The x-rays are showing subcutaneous edema, extensive emphysema in the foot both dorsally and plantarly and a 1.2 cm radial radiopaque foreign body versus calcification of the plantar. The patient presented with a white count of 21.5, currently receiving vancomycin and Zosyn. The patient presented with left foot pain onset 3 days ago. He met sepsis criteria in the ER. White count 21.5, neutrophils 86.6, lactic acid 3.1, glucose 367, flu negative, COVID negative. Temperature 101.5, heart rate 124, respirations 26. The identified source of infection was his left foot. X-ray showed extensive gas in the entire plantar surface of the left foot and the entire dorsal surface of the left foot up to the ankle. SOCIAL HISTORY: The patient does not smoke, drink, or use any drugs. He lives alone. PAST SURGICAL HISTORY: He has had a right foot transmetatarsal amputation and an appendectomy. REVIEW OF SYSTEMS: CONSTITUTIONAL: No chills. No fevers or night sweats. No nausea or vomiting. No diarrhea. HEENT: No problems with his eyes, ears, nose or throat. PULMONARY: No shortness of breath. GENITOURINARY: No dysuria. GASTROINTESTINAL: No dysphagia. CARDIOVASCULAR: No known peripheral vascular disease. PSYCHIATRIC: Denies any depression. MEDICATIONS: Aspirin, , Jardiance, Neurontin, glimepiride, Victoza, lisinopril, meclizine, methylprednisolone, pioglitazone. PHYSICAL EXAMINATION: The patient's examination today shows he has a well-healed transmetatarsal amputation on the right and palpable pedal pulses. The left is edematous, rubrous. There is a fluctuant bulla encompassing the entire plantar aspect of the left foot, hemorrhagic in nature. He has intense edema, intense erythema, and intense cellulitis to the entire left foot. ASSESSMENT: Sepsis, gas gangrene, dorsal and plantar foot. The dorsal gangrene extends past the ankle joint. The gas gangrene plantarly encompassing the entire plantar surface of the left foot, uncontrolled diabetes, deep plantar space infection, necrotizing fasciitis, gas gangrene, hyperlactinemia, hypertension, and hyperlipidemia. PLAN: I reviewed the findings with the patient radiographically and clinically. I explained to the patient that he has gas gangrene, necrotizing fasciitis, deep plantar space infection. He is septic. He has flesh-eating bacteria that is encompassing all the tissue of his left foot and there is no opportunity for any foot salvage given the severity of the infection. The patient states he wants a second opinion and is refusing amputation surgery. I feel the patient will need minimal a [id number] amputation on the left and initially maybe a guillotine-type amputation. I will consult Orthopedics and consult Infectious Disease on this patient. We will continue with the IV vancomycin and the IV Zosyn. TID: [id number] RECEIPT: [id number]
--- NOTE | 2025-03-30 23:00 | NUR ---
NPO Informed patient of nothing to eat or drink past midnight for pending procedure, verbalized understanding.
--- NOTE | 2025-03-31 02:00 | NUR ---
BEHAVIOR Patient with hostile behavior and wanting to get out of bed stating , "I need to go outside and get fresh air now and Im thirsty and want to drink water." Nurse educated of fall precautions and wound leaking to foot and orders for NPO. Patient stated "Bring me someone higher than you since you are not taking me outside with a wheelchair." Notified charge nurse Sherri.
--- NOTE | 2025-03-31 02:21 | CONS ---
INFECTIOUS DISEASE CONSULTATION DATE OF SERVICE: 03/30/2025 REQUESTING PHYSICIAN: Dr. Lechuga. REASON FOR CONSULTATION: Left foot gangrene and sepsis. HISTORY OF PRESENT ILLNESS: A 60-year-old male with a history of diabetes mellitus, morbid obesity, hypertension, possible peripheral vascular disease, presented to the hospital with right foot pain, swelling, and redness. The patient also complained of fever and chills. An x-ray has been done and showed gas gangrene. The patient's WBC was 21,000 on admission. Sodium was low. The patient was started on vancomycin and Zosyn. No documented fall or trauma. Seen by Podiatry, recommended below-knee amputation, which the patient is refusing at this time. PAST MEDICAL HISTORY: * Diabetes mellitus. * Hypertension. * Right foot osteomyelitis. * Obesity. * CVA. * Coronary artery disease. PAST SURGICAL HISTORY: * Right foot transmetatarsal amputation. * Appendectomy. * Cholecystectomy. ALLERGIES: No known drug allergies. CURRENT MEDICATIONS: Include: * Vancomycin. * Zosyn. * Insulin. * . * Lovenox. * Zofran. SOCIAL HISTORY: No alcohol, tobacco or illicit drug use. FAMILY HISTORY: Positive for diabetes mellitus. REVIEW OF SYSTEMS: Greater than 10 systems were reviewed, negative except as documented above. PHYSICAL EXAMINATION: GENERAL: Elderly male, awake, ill looking. VITAL SIGNS: Temperature 98.2, pulse 114, respiratory rate 19, BP 142/81. EYES: No icterus. Pupils equal and reactive. HENT: No oral thrush seen. Moist oral mucosa. NECK: Supple. No JVD or thyromegaly. LUNGS: Good air entry. No rales, no rhonchi. CARDIOVASCULAR: S1, S2, regular, tachycardic. No murmur heard. ABDOMEN: Obese, soft. Bowel sound is present. CENTRAL NERVOUS SYSTEM: Awake, alert, oriented x 3. No focal deficits. SKIN: No rashes, no itchiness. LYMPHATIC: There is inguinal lymphadenopathy. BACK: No deformity. No pressure ulcer. EXTREMITIES: Extensive swelling involving the left foot with purulent drainage. LABORATORY DATA: Sodium 130, potassium 3.8. BUN 18, creatinine 1.1. WBC 21.4, hemoglobin 13.3, platelets 193. RADIOLOGY: X-ray of the left foot shows extensive gas infection. ASSESSMENT: A 60-year-old male who presents with fever. CURRENT PROBLEMS: Include: * Sepsis. * Left foot gas gangrene. * Possible left foot osteomyelitis. * Diabetic foot ulcer. * Obesity. * Medical noncompliance. PLAN: * Continue wound care. * Continue pain management. * Continue antihypertensive. * Continue antidiabetic. * Continue nutritional support. * Monitor electrolytes. * The patient will benefit from left below-knee amputation. Thank you for allowing me to participate in the care of this patient. TID: [id number] RECEIPT: [id number]
[2025-03-31 03:44] VITALS: BP 125/74; PULSE 107; RESP 19; TEMP 99
--- NOTE | 2025-03-31 04:45 | NUR ---
BEHAVIOR Patient yelling out nurse's name and stating 'I want you to cut my fingernails right now." Educated patient of risks of infection and not within my scope to cut nails, patient upset and asking to speak to charge nurse. " Also patient refusing surgery this morning and demanding a jello. Notified charge nurse.
[2025-03-31 04:59] LABS: NUCLEATED RED BLOOD CELLS 0.0 % (0.0-0.19); PLATELET COUNT (AUTO) 197.0 K/uL (130-400); RED BLOOD CELL COUNT(AUTO) 3.95 MIL/uL (4.50-6.20); RED CELL DISTRIBUTION WIDTH 12.9 % (11.0-15.5); WHITE BLOOD COUNT (AUTO) 17.7 K/uL (4.8-10.8)
--- NOTE | 2025-03-31 05:04 | NUR ---
REFUSAL OF SURGERY Patient stated he is refusing surgery because he is not ready and eating a jello. Patient states he would like to speak to a doctor prior to the surgery. Notified Dr. Paulino and [facility] of refusal of surgery this morning.
[2025-03-31 05:12] LABS: CREATININE 1.0 mg/dL (0.5-1.3); GLOMERULAR FILTR. RATE CALC 86.0 mL/min (>90); GLUCOSE,RANDOM 221.0 mg/dL (70-105); PHOSPHORUS 1.7 mg/dL (2.5-4.9); SODIUM SERUM 127.0 mmol/L (136-145); UREA NITROGEN, BLOOD 17.0 mg/dL (7-18)
--- NOTE | 2025-03-31 05:59 | HMCIMG ---
EXAMINATION: DUPLEX ULTRASOUND EXAMINATION OF THE BILATERAL LOWER EXTREMITY ARTERIES. CLINICAL HISTORY: Left foot wound. COMPARISON: Bilateral lower extremity arterial doppler dated 08/05/2021. FINDINGS: Peak systolic velocities within the right lower arteries are as follows: Common femoral artery: 80 cm/s. Superficial femoral artery: 46 cm/s at proximal, 39 cm/s at mid, and 41 cm/s at distal segments. Popliteal artery: 29 cm/s at proximal and 26 cm/s at distal segments. Posterior tibial artery: 48 cm/s. Anterior tibial artery: 20 cm/s. Dorsalis pedis artery: 28 cm/s. The right lower limb arteries demonstrate triphasic waveforms in all arteries. Peak systolic velocities within the left lower arteries are as follows: Common femoral artery: 51 cm/s. Superficial femoral artery: 72 cm/s at proximal, 58 cm/s at mid, and 28 cm/s at distal segments. Popliteal artery: 108 cm/s at proximal and 66 cm/s at distal segments. Posterior tibial artery: 130 cm/s. Anterior tibial artery: 222 cm/s. Dorsalis pedis artery: 31 cm/s. The left lower limb arteries demonstrate triphasic waveforms in all arteries except the anterior tibial, posterior tibial, and dorsalis pedis arteries which demonstrate monophasic waveforms. There is intimal wall thickening in both the lower limb arteries. There is a calcified plaque in the left posterior tibial artery causing about 50% to 60% diameter stenosis. There is an enlarged lymph node that measures 3.7 x 1.1 cm in the left inguinal region. Hilar echoes are maintained. No increased vascularity. There is raised velocity in the left anterior tibial artery. IMPRESSION: Mild intimal wall thickening in both the lower limb arteries. Both lower limb arteries demonstrate triphasic waveforms except the left anterior tibial, posterior tibial, and dorsalis pedis arteries which demonstrate monophasic waveforms. Calcified plaque in the left posterior tibial artery causing about 50% to 60% diameter stenosis. There is no significant flow limiting lesions in the remainder of the arteries. Left inguinal lymphadenopathy. Raised velocity in the left anterior tibial artery. In prior ultrasound both lower limb arteries demonstrate triphasic waveforms /Barton
--- NOTE | 2025-03-31 06:47 | PN ---
SUBJECTIVE: The patient is a 60-year-old diabetic male. White count trending down at 17.7, H and H 12.2 and 34.3. Glucose 221. Platelets 197. BUN 17, creatinine 1.0. The patient is being followed for sepsis with extensive gas gangrene to the entire plantar surface of his foot, the entire dorsal aspect of his foot, and the anterior ankle on the left. Dr. Barnes has been consulted for evaluation for a lower extremity amputation for which the patient appears to be refusing. The patient has been followed by Dr. Miranda, Infectious Disease. The patient has been followed by the psychiatry service. The patient has been followed for sepsis, leukocytosis, gas gangrene of his left foot, diabetes type 2, hypertension, hyperlipidemia. OBJECTIVE: EXTREMITIES: The patient's examination today shows that he has a well-healed transmetatarsal amputation on the right, palpable pedal pulses. Left foot is edematous, ruborous, fluctuant bulla encompassing the entire plantar aspect of the left foot, hemorrhagic in nature, intense edema, erythema, and has cellulitis to the entire left foot. Review of his x-rays showed extensive gas encompassing the entire plantar surface of the left foot, the entire dorsal surface of the left foot extending to the anterior ankle. ASSESSMENT: Sepsis, gas gangrene, dorsal and plantar foot. Gas gangrene encompassing the entire plantar aspect of the left foot, the entire dorsum of the left foot, and the anterior ankle. Uncontrolled diabetes, deep plantar space infection, necrotizing fasciitis, gas gangrene, hypertension, hyperlipidemia, and medical noncompliance. PLAN: I again reviewed the findings with the patient clinically and radiographically. I informed the patient there are no other realistic options other than to proceed with a [id number] amputation on the left. General Surgery has been consulted. The patient continues to refuse amputation surgery. We will continue with the vancomycin and the IV Zosyn. The patient has a very poor prognosis if he continues to refuse amputation surgery that has been recommended by the primary care service, the infectious disease service, and myself due to the extensive gas gangrene, necrotizing fasciitis, infection to his left foot. TID: [id number] RECEIPT: [id number]
--- NOTE | 2025-03-31 07:49 | NUR ---
EDUCATION PATIENT REQUESTING TO GET UP TO USE BATHROOM ON HIS OWN. EDUCATED PATIENT PER 'S RECOMMENDATIONS, SHOULD NOT HAVE ANY WEIGHT BEARING TO AFFECTED FOOT TO PREVENT ANY FURTHER COMPLICATIONS. ADVISED PATIENT TO CALL FOR ASSISTANCE AT ALL TIMES WHEN NEEDING TO GO TO THE BEDROOM AND STAFF CAN ASSIST WITH BEDPAN, URINAL, OR ASSISTANCE WITH WHEELCHAIR IF NEEDED AND NOT GET UP BY HIMSELF. NURSE EDUCATED PATIENT ON FALL PRECAUTIONS/PREVENTION TO AVOID ANY FALLS AND COMPLICATIONS. PATIENT VOICED UNDERSTANDING. BED TO LOWEST POSITION, CALL LIGHT ON, CALL MALHOTRA WITHIN REACH.
[2025-03-31 08:00] VITALS: BP 109/66; PULSE 95; RESP 18; TEMP 99.4
[2025-03-31 09:00] VITALS: O2SAT 96
[2025-03-31 12:00] VITALS: BP 104/58; PULSE 97; RESP 18; TEMP 98.9
--- NOTE | 2025-03-31 14:18 | NUR ---
DCP:HOME vs SNF Pt currently lives alone in his home. pt does have a wheelchair, walker, and cane. Pt does not have home health. Pt does have a provider that goes to his home 26 hrs a week to assist with all ADLs, home management, and meals. PCP is Dr. Pradeep Gayle and uses [facility] for any RX needs. At [place] pt states that he will consider SNF for PT or to go home (no consent obtained). Addendum: 03/31/25 at 1422 by HECTOR ROCA SS Amended: Links added.
--- NOTE | 2025-03-31 14:20 | NUR ---
PODIATRY CONSULT PATIENT HAS PENDING PODIATRY CONSULT FOR SECOND OPINION ON BKA D/T LEFT FOOT GAS GANGRENE. NOTIFIED DR. PABON. PER DR. PABON, HE DOES NOT PERFORM BKAs, HOWEVER WILL SEE THE PATIENT LATER THIS AFTERNOON. NO FURTHER ORDERS GIVEN.
[2025-03-31 16:00] VITALS: BP 116/64; PULSE 97; RESP 18; TEMP 98.6
--- NOTE | 2025-03-31 16:56 | PN ---
INFECTIOUS DISEASE PROGRESS NOTE Date of Service: Mar 31, 2025 SUBJECTIVE: This is a 60-year-old male patient who was seen and examined at bedside in room 419. Patient is awake, alert and oriented x3. Patient has a low-grade fever of 99.3 this morning and the WBC remains elevated at 17.7. Patient has a left foot diabetic ulcer with gas gangrene, malodorous and with drainage. Cellulitis present to the left lower extremity and possible osteomyelitis. Patient was scheduled for a left BKA today as recommended by Podiatry, patient however declined surgery. Stated that he rather go to the [facility] with the leg still in place. Per nursing report patient's daughter will be coming in later today to try to convince patient to proceed with the surgery. For now we will continue on vancomycin per pharmacy protocol and Zosyn IV. PHYSICAL EXAM EYES: Anicteric. Pupils equal and reactive. HENT: No oral thrush seen, moist Oral mucosa. NECK: Supple, no JVD or thyromegaly. LUNGS: Good air entry. No rales, no rhonchi. CARDIOVASCULAR: S1, S2 regular. No murmur heard. ABDOMEN: Soft, non tender, bowel sounds present, no organomegaly CENTRAL NERVOUS SYSTEM: Awake, alert, oriented x 3. No focal deficits. SKIN: No rashes, no swelling. Left foot diabetic ulcer with cellulitis. LYMPHATICS: No peripheral lymphadenopathy. MUSCULOSKELETAL: No joint swelling, erythema or tenderness. EXTREMITIES: No cyanosis or clubbing. History of Right TMA. BACK: No deformity, no pressure ulcer. GENITOURINARY: No dysuria or hematuria. Vital Sign (Last 12 Hours) 03/31/25 03/31/25 03/31/25 08:00 09:00 12:00 Temp 99.3 99.0 Pulse 95 97 Resp 18 18 B/P (MAP) 109/66 104/58 Pulse Ox 95 96 98 O2 Delivery Room Air Room Air* Room Air O2 Flow Rate 0 FiO2 21 21 Intake & Output (last 24hrs) 03/30/25 03/30/25 03/31/25 15:00 23:00 07:00 Intake Total 1100 ml Output Total 500 ml 600 ml Balance 600 ml -600 ml LABS: Laboratory: Test 03/31/25 15:54 03/31/25 08:05 03/31/25 04:36 03/30/25 05:10 Range/Units Whole Blood Glucose 284 H 70-110 MG/DL Bedside Glucose Comment Notified Nurse Vancomycin Level Trough 9.8 #L 10.0-20.0 UG/ML White Blood Count 17.7 H 4.8-10.8 K/uL Red Blood Count 3.95 L 4.50-6.20 MIL/uL Hemoglobin 12.2 L 14.0-18.0 g/dL Hematocrit 34.3 L 42-54 % Mean Corpuscular Volume 86.8 79-99 fL Mean Corpuscular Hemoglobin 30.9 27.0-33.0 pg Mean Corpuscular Hemoglobin Concent 35.6 32.0-36.0 g/dL Red Cell Distribution Width 12.9 11.0-15.5 % Platelet Count 197 130-400 K/uL Mean Platelet Volume 11.1 H 7.5-10.5 fL Nucleated Red Blood Cells 0.0 0.0-0.19 % Sodium Level 127 L 136-145 mmol/L Potassium Level 3.6 3.5-5.1 mmol/L Chloride Level 95 L 101-111 mmol/L Carbon Dioxide Level 27 21-32 mmol/L Blood Urea Nitrogen 17 7-18 mg/dL Creatinine 1.0 0.5-1.3 mg/dL Glomerular Filtration Rate Calc 86 >90 mL/min Random Glucose 221 H 70-105 mg/dL Total Calcium 7.4 L 8.5-10.1 mg/dL Phosphorus Level 1.7 L 2.5-4.9 mg/dL Magnesium Level 1.80 1.80-2.40 mg/dL Immature Granulocyte % (Auto) 0.8 0-1 % Neutrophils (%) (Auto) 86.6 H 40.0-77.0 % Lymphocytes (%) (Auto) 7.8 L 21.0-51.0 % Monocytes (%) (Auto) 4.5 3.0-13.0 % Eosinophils (%) (Auto) 0.0 0.0-8.0 % Basophils (%) (Auto) 0.3 0.0-5.0 % Neutrophils # (Auto) 18.5 H 1.8-7.7 K/uL Lymphocytes # (Auto) 1.7 1.0-4.8 K/uL Monocytes # (Auto) 1.0 0.1-1.0 K/uL Eosinophils # (Auto) 0.01 0.00-0.70 K/uL Basophils # (Auto) 0.06 0.00-0.20 K/uL Absolute Immature Granulocyte (auto 0.17 0-1 K/uL Prothrombin Time 13.0 H 9.6-11.6 SEC Prothromb Time International Ratio 1.25 H 0.85-1.15 Activated Partial Thromboplast Time 32.8 26.3-35.5 SEC Lactic Acid Level 1.9 0.8-2.5 mmol/L Test 03/29/25 20:02 03/29/25 19:18 03/29/25 19:14 Range/Units Urine Color LIGHT-ORANGE YELLOW Urine Appearance CLEAR CLEAR Urine pH 6.0 5.0-8.0 Urine Specific [place] 1.029 1.001-1.031 Urine Protein 300 H NEGATIVE mg/dL Urine Glucose (UA) >=1000 H NEGATIVE mg/dL Urine Ketones NEGATIVE NEGATIVE mg/dL Urine Occult Blood SMALL H NEGATIVE Urine Nitrate NEGATIVE NEGATIVE Urine Bilirubin NEGATIVE NEGATIVE mg/dL Urine Urobilinogen 0.2 0.2-1.0 mg/dL Urine Leukocyte Esterase NEGATIVE NEGATIVE Gilbert/uL Urine RBC 2-5 H 0-1 /HPF Urine WBC 6-10 H 0-1 /HPF Urine Squamous Epithelial Cells RARE 0-2 /HPF Urine Bacteria RARE None Seen /HPF Urine Other Casts 1 None Seen /LPF Influenza Type A Antigen Negative For Type A NEGATIVE Influenza Type B Antigen Negative For Type B NEGATIVE SARS-CoV-2, RNA, NAAT NEGATIVE SARS CoV-2 NEGATIVE Group A Streptococcus Rapid negative NEGATIVE White Cell Morphology Comment See comments Hemoglobin A1c 8.5 H 4.0-6.0 % Estimated Average Glucose (eAG) 197 H 70-126 mg/dL Total Creatine Kinase 22 # 21-232 U/L Troponin I High Sensitivity 11 4-75 ng/L Procalcitonin 1.54 H 0.05-0.5 ng/mL DIAGNOSTICS / RADIOLOGY: ATIENT: JENNIFER HERNANDEZNEGRA MR#: [id number] : 1965 SEX: M AGE: 60 LOCATION: [facility] ORDER 22 STATUS: REG ER REPORT#: [id number] SERVICE 20 REASON: necrotic areas ORDERING PHYSICIAN: SEAN JEFFERY MD PROCEDURE: FT 3VW LT - FOOT COMP 3+VWS LT EXAM: CR right foot, 3 View. CLINICAL HISTORY: necrotic areas COMPARISON: None provided. FINDINGS: BONES: No acute fracture or aggressive appearing osseous lesion. JOINTS: The joint spaces appear within normal limits. No dislocation. SOFT TISSUES: Subcutaneous edema and extensive subcutaneous emphysema throughout the foot. There is a 1.1 cm radiopacity projecting of the plantar soft tissues of the mid to hindfoot (just beneath the skin). It is unclear whether this reflects a foreign body, clinical correlation is advised. IMPRESSION: 1. Subcutaneous edema and extensive subcutaneous emphysema of the foot. Findings are concerning for infection resulting in gangrene. 2. 1.1 cm radiopaque foreign body versus calcification in plantar soft tissues; clinical correlation advised. /[place] DICTATED BY: MARA BADILLO Jr., MD DATE: 03/29/252139 PATIENT: NEGRA RODRIGUEZ JR ACCT: [id number] LOC: [facility] U: [id number] AGE/SX: 60/M ROOM: [facility] RE03/29/[address]: KEITH YU MD : 1965 BED: 1 DIS: STATUS: ADM IN TLOC: SPEC: [id number] SHAHRIAR: 03/29/25 STATUS: COMP REQ: [id number] RECD: 03/31/[address]: SEAN JEFFERY MD S[place]: [facility] 03/31/[address] [facility] [address]: VINNIE JARA MD SPDESC: CLEAN CAT ORDERED: AERO ID & SENS Procedure Result Andrey Date-Time AEROBIC ID & SENSITIVITIES Final 03/31/25-1121 MRL COLONY DESCRIPTION: DAY 1: COLONY COUNT: >100,000 CFU/ML 3 DIFFERENT ORGANISMS; SUGGESTIVE OF CONTAMINATION MIXED GRAM POSITIVE ORGANISM , NO FURTHER WORK-UP DONE ASSESSMENT: Left foot diabetic ulcer with gas gangrene. Possible left foot osteomyelitis. Left lower extremity cellulitis. Sepsis. Leukocytosis. Poorly controlled Diabetes mellitus. Peripheral vascular disease. History of right foot osteomyelitis with right TMA. Medical noncompliance. PLAN: Continue vancomycin per pharmacy protocol. Continue Zosyn IV. Continue pain management. Continue GI prophylaxis. Continue wound care. We will follow up on cultures results. Left jpjll-rnd-[id number] amputation was recommended, patient declined surgery today. This case was reviewed and discussed with my supervising physician and the above assessment and plan was formulated and agreed upon. ATTESTATION BY PHYSICIAN I have seen and examined the patient. I reviewed the documentation, medical decision making, and treatment plan as noted by the mid-level provider above. I agree with the findings and plan of care. SONNY HA MD, MIRTA L DESIGN VERIFICATION ENGINEER Mar 31, 2025 16:56
--- NOTE | 2025-03-31 17:30 | CONS ---
CONSULTATION NOTE Date of Service: Mar 31, 2025 Reason for Consultation: 60 years old male was seen for a 2nd opinion consultation on gas gangrene to the left lower extremity. Requesting Physician: Dr Miranda HISTORY OF PRESENT ILLNESS: Patient presented to the ER was seen by Dr. Lechuga who after examination recommended dyawk-pue-hnba amputation due to the extent of the gangrene gas and necrosis of the tissue the patient knows presenting with a septic picture at this time history of transmetatarsal amputation to the right foot at this time presenting with this lower extremity with gas gangrene affecting the plantar foot of the dorsal foot. REVIEW OF SYSTEMS CONSTITUTIONAL: Denies fever, chills, or fatigue. HEAD/FACE: No signs of trauma. EENT: Denies eye pain, blurred vision, double vision, or light sensitivity. RESPIRATORY: Denies shortness of breath, cough, wheezing CARDIOVASCULAR: Denies chest pain, palpitation, syncope GASTROINTESTINAL/ABDOMINAL: Denies abdominal pain, constipation, diarrhea, n ausea or vomiting GENITOURINARY: Denies dysuria or hematuria. MUSCULOSKELETAL: Denies joint pain, tenderness, or trauma. INTEGUMENTARY: Edema erythema to the left lower extremity with gas gangrene. Affecting plantar aspect of the foot ankle and dorsal aspect of the foot. NEUROLOGICAL/PSYCH: Denies anxiety, depression, heat or cold intolerance. PAST MEDICAL HISTORY: Diabetes obesity mental health problems. PAST SURGICAL HISTORY: Transmetatarsal amputation right foot PAST SOCIAL HISTORY: Denies any drinking or illicit drugs or smoking. FAMILY HISTORY: Noncontributory. Coded Allergies: No Known Drug Allergies (Verified Allergy, Mild, 12/23/15) PHYSICAL EXAM EYES: Anicteric. Pupils equal and reactive. HENT: No oral thrush seen, moist Oral mucosa NECK: Supple, no JVD or thyromegaly. LUNGS: Good air entry. No rales, no rhonchi. CARDIOVASCULAR: S1, S2 regular. No murmur heard. Arterial calcifications on bilateral lower extremities. Especially left foot. ABDOMEN: Soft, non tender, bowel sounds present, no organomegaly CENTRAL NERVOUS SYSTEM: Awake, alert, oriented x 3. No focal deficits. SKIN: No rashes, no swelling. LYMPHATICS: No peripheral lymphadenopathy MUSCULOSKELETAL: No joint swelling, erythema or tenderness. Transmetatarsal amputee of the right foot. EXTREMITIES: Gas gangrene affecting the plantar aspect dorsal aspect of the foot and lower leg. BACK: No deformity, no pressure ulcer. GENITOURINARY: No dysuria or hematuria Vital Sign (Last 24 Hours) 03/31/25 03/31/25 09:00 16:00 Temp 98.6 Pulse 97 Resp 18 B/P (MAP) 116/64 Pulse Ox 98 O2 Delivery Room Air O2 Flow Rate 0 FiO2 21 Intake & Output (last 24hrs) 03/30/25 03/30/25 03/31/25 15:00 23:00 07:00 Intake Total 1100 ml Output Total 500 ml 600 ml Balance 600 ml -600 ml LABS: Laboratory: Test 03/31/25 15:54 03/31/25 08:05 03/31/25 04:36 03/30/25 05:10 Range/Units Whole Blood Glucose 284 H 70-110 MG/DL Bedside Glucose Comment Notified Nurse Vancomycin Level Trough 9.8 #L 10.0-20.0 UG/ML White Blood Count 17.7 H 4.8-10.8 K/uL Red Blood Count 3.95 L 4.50-6.20 MIL/uL Hemoglobin 12.2 L 14.0-18.0 g/dL Hematocrit 34.3 L 42-54 % Mean Corpuscular Volume 86.8 79-99 fL Mean Corpuscular Hemoglobin 30.9 27.0-33.0 pg Mean Corpuscular Hemoglobin Concent 35.6 32.0-36.0 g/dL Red Cell Distribution Width 12.9 11.0-15.5 % Platelet Count 197 130-400 K/uL Mean Platelet Volume 11.1 H 7.5-10.5 fL Nucleated Red Blood Cells 0.0 0.0-0.19 % Sodium Level 127 L 136-145 mmol/L Potassium Level 3.6 3.5-5.1 mmol/L Chloride Level 95 L 101-111 mmol/L Carbon Dioxide Level 27 21-32 mmol/L Blood Urea Nitrogen 17 7-18 mg/dL Creatinine 1.0 0.5-1.3 mg/dL Glomerular Filtration Rate Calc 86 >90 mL/min Random Glucose 221 H 70-105 mg/dL Total Calcium 7.4 L 8.5-10.1 mg/dL Phosphorus Level 1.7 L 2.5-4.9 mg/dL Magnesium Level 1.80 1.80-2.40 mg/dL Immature Granulocyte % (Auto) 0.8 0-1 % Neutrophils (%) (Auto) 86.6 H 40.0-77.0 % Lymphocytes (%) (Auto) 7.8 L 21.0-51.0 % Monocytes (%) (Auto) 4.5 3.0-13.0 % Eosinophils (%) (Auto) 0.0 0.0-8.0 % Basophils (%) (Auto) 0.3 0.0-5.0 % Neutrophils # (Auto) 18.5 H 1.8-7.7 K/uL Lymphocytes # (Auto) 1.7 1.0-4.8 K/uL Monocytes # (Auto) 1.0 0.1-1.0 K/uL Eosinophils # (Auto) 0.01 0.00-0.70 K/uL Basophils # (Auto) 0.06 0.00-0.20 K/uL Absolute Immature Granulocyte (auto 0.17 0-1 K/uL Prothrombin Time 13.0 H 9.6-11.6 SEC Prothromb Time International Ratio 1.25 H 0.85-1.15 Activated Partial Thromboplast Time 32.8 26.3-35.5 SEC Lactic Acid Level 1.9 0.8-2.5 mmol/L Test 03/29/25 20:02 03/29/25 19:18 03/29/25 19:14 Range/Units Urine Color LIGHT-ORANGE YELLOW Urine Appearance CLEAR CLEAR Urine pH 6.0 5.0-8.0 Urine Specific [place] 1.029 1.001-1.031 Urine Protein 300 H NEGATIVE mg/dL Urine Glucose (UA) >=1000 H NEGATIVE mg/dL Urine Ketones NEGATIVE NEGATIVE mg/dL Urine Occult Blood SMALL H NEGATIVE Urine Nitrate NEGATIVE NEGATIVE Urine Bilirubin NEGATIVE NEGATIVE mg/dL Urine Urobilinogen 0.2 0.2-1.0 mg/dL Urine Leukocyte Esterase NEGATIVE NEGATIVE Gilbert/uL Urine RBC 2-5 H 0-1 /HPF Urine WBC 6-10 H 0-1 /HPF Urine Squamous Epithelial Cells RARE 0-2 /HPF Urine Bacteria RARE None Seen /HPF Urine Other Casts 1 None Seen /LPF Influenza Type A Antigen Negative For Type A NEGATIVE Influenza Type B Antigen Negative For Type B NEGATIVE SARS-CoV-2, RNA, NAAT NEGATIVE SARS CoV-2 NEGATIVE Group A Streptococcus Rapid negative NEGATIVE White Cell Morphology Comment See comments Hemoglobin A1c 8.5 H 4.0-6.0 % Estimated Average Glucose (eAG) 197 H 70-126 mg/dL Total Creatine Kinase 22 # 21-232 U/L Troponin I High Sensitivity 11 4-75 ng/L Procalcitonin 1.54 H 0.05-0.5 ng/mL DIAGNOSTICS / RADIOLOGY: Gas gangrene to the left foot and ankle. Calcification of arteries of the left foot and ankle. Diagnosis Gas gangrene left foot Sepsis. PLAN: I agree with Dr. Lechuga's recommendation at this point. Due to the extent of the gas gangrene and the septic picture, I also made recommendations at this point is for a cvtay-nec-nryq amputation. Patient was educated on the problem and the risks and benefits of the amputation. Unfortunately at this moment any local surgery we will fail to heal and will put the patient a risk of higher limb loss or even . Apparently the patient agreed to the amputation at this point we will recall Dr. Kalina corbin for follow up evaluation. TRIPP PABON DPM Mar 31, 2025 17:30
--- NOTE | 2025-03-31 17:32 | CONS ---
CONSULT NOTE: Consulting physician: Dr. Myers Consulting service: General surgery Reason for consultation: Left BKA History of present illness: This is a 60-year-old male with a medical history listed below that has been consulted to surgery for concerns of gas gangrene to left lower extremity in need of BKA. Patient has been following Podiatry who had made recommendations but at this point in time patient is adamant that he wants 2nd opinion of Podiatry and we will not agree to any BKA at this moment. Patient's spoken to at length about the risks of continue without surgical intervention at this time. Patient understands risks but still wishes for 2nd opinion. Patient's pain controlled. Significant swelling and erythema with cellulitis noted to left lower extremity. WBCs improving with still elevated at 17.7. Patient continues IV fluids and IV antibiotics Medical history: Surgical history: He has had a right foot transmetatarsal amputation and an appendectomy. Review of systems: General: No Fever, No Chills, No Night Sweats, No Fatigue, No Malaise, No Appetite, No Other HEENT: No Head Aches, No Visual Changes, No Eye Pain, No Ear Pain, No Dysphasia, No Sinus Congestion, No Post Nasal Drip, No Sore Throat, No Other Pulmonary: No Dyspnea, No Cough, No Pleuritic Chest Pain, No Other Cardiovascular: No: Chest Pain, Palpitations, Orthopnea, Paroxysmal No Dyspnea, Edema, Lt Headedness, Other Gastrointestinal: No: Nausea, Vomiting, Diarrhea, Constipation, Melena, Hematochezia, Other Genitourinary: No Dysuria, No Frequency, No Incontinence, No Hematuria, No Retention, No Other Musculoskeletal: No: other, neck pain, shoulder pain, arm pain, back pain, hand pain, leg pain, foot pain Skin: No Urticaria, No Rash, No Other Neurological: No: Weakness, Numbness, Incoordination, Change in speech, Confusion, Seizures, Other Physical exam: General: Awake alert and oriented Heart: Regular rate and rhythm} Lungs: Clear to auscultation no distress Abdomen: [Soft, nontender, nondistended Significant edema with fluctuance bulla Significant cellulitis to left lower extremity Assessment: This is a 60-year-old male with gas gangrene and necrotizing fasciitis and deep plantar space infection consulted to surgery for left BKA Plan: At this point in time patient continues to refuse any surgical intervention Patient explained at length concerns and risks of continuing without surgery and he understands Patient has requested 2nd opinion for Podiatry at this time we will await recommendations Doctor Barnes to be updated in patient's status Patient to continue with the IV antibiotics and continued wound care ERICH CERVANTES Jr. Mar 31, 2025 17:32
--- NOTE | 2025-03-31 17:49 | NUR ---
ROUNDS DR. PABON ROUNDED AT BEDSIDE. DISCUSSED TREATMENT PLAN AND RECOMMENDATIONS WITH PATIENT AND DAUGHTER AT BEDSIDE. DR. PABON RECOMMENDED BKA, EXPLAINING TO PATIENT RISKS AND COMPLICATIONS IF DOES NOT GO FORWARD WITH SURGERY. BOTH PATIENT AND DAUGHTER VOICED UNDERSTANDING. PATIENT AGREED FOR PROCEDURE. NOTIFIED SURGERY. PENDING CALLBACK. NO ORDERS GIVEN AT THIS TIME.
--- NOTE | 2025-03-31 18:25 | PN ---
[facility] PROGRESS NOTE Date of Service: Mar 31, 2025 Time of Service: 18:14 SUBJECTIVE: Mr. Pires is a 60 year old male with past medical history of hypertension, hyperlipidemia, type 2 diabetes mellitus, appendectomy, right foot TMA was seen and examined today on 03/29/2025. Patient is a good historian of personal health Patient states that he came to the emergency department with a chief complaint of left foot pain. Onset was three days ago. Location is left foot plantar aspect. Duration is on and off. Character is described as sharp. There was no alleviating factors. Symptoms are aggravated with walking. Patient reports associated redness and discoloration to the left foot plantar aspect midfoot area. Today in the emergency department WBCs 21.5, left shift neutrophils 86 %, lactic acid 3.1, glucose 367 mg/dL, urinalysis unremarkable, flu negative, COVID negative. Additionally patient has a temperature of 101.5, heart rate 124, respirations 26 and identified source of infection being in the left foot patient met clinical sepsis criteria. Left foot x-ray shows soft tissue swelling and emphysema. 03/30/25: The patient is examined at the bedside. He is very upset that he is on 1:1 sitter. He said that he joked about the suicidal thoughts and wanting to take people with him. He was angry and demanded to have some food as he was kept NPO for the possibility of amputation surgery. He is given some jelly and 1 dose of morphine for his pain. Tele psych was done and cleared him of 1:[address] Lechuga the plasterer stucco visited him this morning and suggested him the possibility of amputation of his Lft leg due to gas gangrene. He was transitioned to consistent carb diet and then General surgery and Infectious Disease consult was placed on him by Dr. Lechuga. On labs his magnesium is 1.4 and phosphorus is 1.7. He is on vancomycin1 g IV q.12h, Zosyn IV q.8h. Arterial ultrasound is pending. We plan to replace his magnesium and monitor his magnesium and phosphorus levels for tomorrow. 03/31/25: The patient is examined at the bedside. The patient agreed for amputation surgery yesterday but today morning he disagreed. He requested 2nd opinion from another plasterer stucco and we recommended Dr. Robles. Dr. Acuna's consulted him and suggested for below-knee amputation as well to prevent further spread of inf ection and risk of losing the whole limb. The patient finally agreed and a consult with Dr. Gilman is put on for surgery. His WBC downtrended to 17.7 And sodium downtrended to 127. His arterial ultrasound showed: Mild intimal wall thickening in both the lower limb arteries. Both lower limb arteries demonstrate triphasic waveforms except the left anterior tibial, posterior tibial, and dorsalis pedis arteries which demonstrate monophasic waveforms. Calcified plaque in the left posterior tibial artery causing about 50% to 60% diameter stenosis. There is no significant flow limiting lesions in the remainder of the arteries. Left inguinal lymphadenopathy. Raised velocity in the left anterior tibial artery. In prior ultrasound both lower limb arteries demonstrate triphasic waveforms REVIEW OF SYSTEMS CONSTITUTIONAL: Denies fevers, chills, or night sweats. No unintentional weight loss reported. NEUROLOGICAL: Denies headache, amaurosis fugax, motor weakness, sensory deficit, vertigo/spinning sensation, gait abnormalities, or tremors. ENT: No hearing loss, otalgia, otorrhea, rhinitis, rhinorrhea, hoarseness, or sore throat. CARDIOVASCULAR: Denies any exertional angina, dyspnea on exertion, orthopnea, paroxysmal nocturnal dyspnea, palpitations, life-threatening arrhythmias, claudication. PULMONARY: Denies any shortness of breath, cough, phlegm/sputum, hemoptysis, pleuritic chest pain. SLEEP: Denies morning headaches, daytime somnolence or napping. Denies difficulty falling asleep, staying asleep, waking from sleep. Denies knowledge of snoring. GASTROINTESTINAL: Denies any type of dysphagia to either liquids or solids. Denies nausea, vomiting, pyrosis, early satiety, abdominal pain, diarrhea, constipation, or changes in stool consistency or caliber. Denies coffee-ground emesis, hematemesis, hematochezia, or melanotic stools. GENITOURINARY: Denies frequency, urgency, nocturia, hematuria or incontinence (Storage/Irritative symptoms.) Low urinary stream, straining to void, urinary intermittency or hesitancy, splitting of the voiding stream, terminal dribbling. ENDOCRINOLOGIC: Denies polyuria, polydipsia, polyphagia or heat/cold intolerances. HEMATOLOGIC: Denies thrombophilia/previous clots, or coagulopathy/bleeding disorders. ONCOLOGIC: Denies personal history of malignancy. DERMATOLOGIC: Swelling, redness, discoloration, multiple ulcers on the left foot. PSYCHIATRIC: Acute stress due to the possibility of left leg amputation, Denies any suicidal or homicidal ideation. Denies hallucinations. EXTREMITIES: Right foot amputated, swelling, redness, multiple ulcers on the left foot PHYSICAL EXAM GENERAL APPEARANCE: The patient is awake, alert, and oriented, in no acute cardiopulmonary distress. NEUROLOGICAL: Cranial nerves II-XII grossly intact. Motor is 5/5 in bilateral upper and lower extremities proximal to distal. No sensory deficits. HEENT: Face is symmetric. Pupils are equal and reactive. Extraocular movements are intact. NECK: Supple. No JVD. No thyromegaly. No submental, submandibular, pre- /postauricular, occipital or supraclavicular lymphadenopathy. CHEST: Normal chest expansion. No Telemetry. LUNGS: Absence of any rales, rhonchi or any wheezing. CARDIOVASCULAR: Regular. S1 and S2 normal. No appreciable rubs, murmurs or gallops. ABDOMEN: Soft, nontender, and nondistended. There is no rebound, voluntary guarding, or rigidity. : Deferred. No [place]on. EXTREMITIES: Right foot amputated, left foot is red, swollen, has multiple ulcers. SKIN: Redness and discoloration of the left foot Vital Signs (last 8hr) Date Time Temp Pulse Resp B/P (MAP) Pulse Ox O2 Delivery O2 Flow Rate FiO2 03/31/25 16:00 98.6 97 18 116/64 98 Room Air 21 03/31/25 12:00 99.0 97 18 104/58 98 Room Air 21 LABS: Laboratory: Test 03/31/25 15:54 03/31/25 08:05 03/31/25 04:36 03/30/25 05:10 Range/Units Whole Blood Glucose 284 H 70-110 MG/DL Bedside Glucose Comment Notified Nurse Vancomycin Level Trough 9.8 #L 10.0-20.0 UG/ML White Blood Count 17.7 H 4.8-10.8 K/uL Red Blood Count 3.95 L 4.50-6.20 MIL/uL Hemoglobin 12.2 L 14.0-18.0 g/dL Hematocrit 34.3 L 42-54 % Mean Corpuscular Volume 86.8 79-99 fL Mean Corpuscular Hemoglobin 30.9 27.0-33.0 pg Mean Corpuscular Hemoglobin Concent 35.6 32.0-36.0 g/dL Red Cell Distribution Width 12.9 11.0-15.5 % Platelet Count 197 130-400 K/uL Mean Platelet Volume 11.1 H 7.5-10.5 fL Nucleated Red Blood Cells 0.0 0.0-0.19 % Sodium Level 127 L 136-145 mmol/L Potassium Level 3.6 3.5-5.1 mmol/L Chloride Level 95 L 101-111 mmol/L Carbon Dioxide Level 27 21-32 mmol/L Blood Urea Nitrogen 17 7-18 mg/dL Creatinine 1.0 0.5-1.3 mg/dL Glomerular Filtration Rate Calc 86 >90 mL/min Random Glucose 221 H 70-105 mg/dL Total Calcium 7.4 L 8.5-10.1 mg/dL Phosphorus Level 1.7 L 2.5-4.9 mg/dL Magnesium Level 1.80 1.80-2.40 mg/dL Immature Granulocyte % (Auto) 0.8 0-1 % Neutrophils (%) (Auto) 86.6 H 40.0-77.0 % Lymphocytes (%) (Auto) 7.8 L 21.0-51.0 % Monocytes (%) (Auto) 4.5 3.0-13.0 % Eosinophils (%) (Auto) 0.0 0.0-8.0 % Basophils (%) (Auto) 0.3 0.0-5.0 % Neutrophils # (Auto) 18.5 H 1.8-7.7 K/uL Lymphocytes # (Auto) 1.7 1.0-4.8 K/uL Monocytes # (Auto) 1.0 0.1-1.0 K/uL Eosinophils # (Auto) 0.01 0.00-0.70 K/uL Basophils # (Auto) 0.06 0.00-0.20 K/uL Absolute Immature Granulocyte (auto 0.17 0-1 K/uL Prothrombin Time 13.0 H 9.6-11.6 SEC Prothromb Time International Ratio 1.25 H 0.85-1.15 Activated Partial Thromboplast Time 32.8 26.3-35.5 SEC Lactic Acid Level 1.9 0.8-2.5 mmol/L Test 03/29/25 20:02 03/29/25 19:18 03/29/25 19:14 Range/Units Urine Color LIGHT-ORANGE YELLOW Urine Appearance CLEAR CLEAR Urine pH 6.0 5.0-8.0 Urine Specific [place] 1.029 1.001-1.031 Urine Protein 300 H NEGATIVE mg/dL Urine Glucose (UA) >=1000 H NEGATIVE mg/dL Urine Ketones NEGATIVE NEGATIVE mg/dL Urine Occult Blood SMALL H NEGATIVE Urine Nitrate NEGATIVE NEGATIVE Urine Bilirubin NEGATIVE NEGATIVE mg/dL Urine Urobilinogen 0.2 0.2-1.0 mg/dL Urine Leukocyte Esterase NEGATIVE NEGATIVE Gilbert/uL Urine RBC 2-5 H 0-1 /HPF Urine WBC 6-10 H 0-1 /HPF Urine Squamous Epithelial Cells RARE 0-2 /HPF Urine Bacteria RARE None Seen /HPF Urine Other Casts 1 None Seen /LPF Influenza Type A Antigen Negative For Type A NEGATIVE Influenza Type B Antigen Negative For Type B NEGATIVE SARS-CoV-2, RNA, NAAT NEGATIVE SARS CoV-2 NEGATIVE Group A Streptococcus Rapid negative NEGATIVE White Cell Morphology Comment See comments Hemoglobin A1c 8.5 H 4.0-6.0 % Estimated Average Glucose (eAG) 197 H 70-126 mg/dL Total Creatine Kinase 22 # 21-232 U/L Troponin I High Sensitivity 11 4-75 ng/L Procalcitonin 1.54 H 0.05-0.5 ng/mL Current Medications Medications (Trade) Dose Ordered Sig/Barak Route PRN Reason Start Time Stop Time Status Last Admin Dose Admin Acetaminophen (TYLenol 325MG TAB) 650 mg Q6H PRN PO TEMPERATURE GREATER THAN 101.5 03/29/25 21:30 04/28/25 21:29 Atorvastatin Calcium (LIPItor 40MG) 40 mg HS PO 03/30/25 21:00 04/29/25 20:59 03/30/25 21:32 40 MG Famotidine (Pepcid 20mg Tab) 20 mg DAILY PO 03/30/25 09:00 04/29/25 08:59 03/31/25 09:05 20 MG Hydralazine HCl (APRESOLine 20MG INJ) 10 mg Q6H PRN IV For:SBP above 160;DBP above 90 03/29/25 21:30 04/28/25 21:29 Insulin Human Regular (humuLIN R 100 UNIT/ML 3ML) INSULIN SLIDING SCAL... ACHS SQ 03/30/25 07:30 04/29/25 07:29 03/31/25 17:06 6 UNIT Lactated Ringer's 1,000 ml @ 75 mls/hr [id number] IV 03/29/25 21:30 04/28/25 21:29 03/30/25 10:50 75 MLS/HR Magnesium Sulfate 50 ml @ 0 mls/hr PROTOCOL PRN IV hypomagnesemia 03/30/25 08:00 04/29/25 07:59 03/30/25 12:14 25 MLS/HR Morphine Sulfate (morPHINE 2MG SYG) 2 mg Q4H PRN IVP SEVERE PAIN (7-10) 03/29/25 21:30 04/05/25 21:29 03/31/25 12:33 2 MG Ondansetron HCl (zoFRAN 4MG INJ) 4 mg Q6H PRN IV NAUSEA/VOMITING 03/29/25 21:30 04/28/25 21:29 Piperacillin Sod/ Tazobactam Sod (Zosyn 3.375gm+NS 50ml) 3.375 gm Q8H IV 03/30/25 04:00 04/09/25 03:59 03/31/25 12:31 3.375 GM Vancomycin HCl 250 ml @ 125 mls/hr Q12H IV 03/30/25 09:00 04/09/25 08:59 03/31/25 09:05 125 MLS/HR Vancomycin HCl (Vancomycin Protocol) 1 each AD IV 03/29/25 21:30 04/12/25 21:29 DIAGNOSTICS / RADIOLOGY: [ ] ASSESSMENT: Sepsis Leukocytosis Gas gangrene of left foot Left foot ganglion Diabetes mellitus type 2 Hypertension Hyperlipidemia Hyponatremia PLAN: Sepsis, leukocytosis, gas gangrene of left foot His WBC count downtrended from 17.7 from 21.4 With neutrophilic predominance. Empiric antibiotic therapy with Zosyn, vancomycin Check blood culture, follow up with the results Foot x-ray showed: 1. Subcutaneous edema and extensive subcutaneous emphysema of the foot. Findings are concerning for infection resulting in gangrene. 2. 1.1 cm radiopaque foreign body versus calcification in plantar soft tissues; Arterial US Showed: IMPRESSION: Mild intimal wall thickening in both the lower limb arteries. Both lower limb arteries demonstrate triphasic waveforms except the left anterior tibial, posterior tibial, and dorsalis pedis arteries which demonstrate monophasic waveforms. Calcified plaque in the left posterior tibial artery causing about 50% to 60% diameter stenosis. There is no significant flow limiting lesions in the remainder of the arteries. Left inguinal lymphadenopathy. Raised velocity in the left anterior tibial artery. In prior ultrasound both lower limb arteries demonstrate triphasic waveforms General surgery consult is placed today Infectious disease consult is done today. Recommended Zosyn and vancomycin. Podiatry consult with done today for 2nd opinion. He agrees with Dr. Lechuga and advised for below-knee amputation. Patient agreed and we consulted Dr. Gilman for surgery Hyponatremia Sodium level downtrended to 127 from 130 yesterday. Monitor BMP regularly. Replace sodium with 3% hypertonic saline if the patient develops symptoms or the sodium level drops below 120 Left foot ganglion: Podiatry service done by Dr. Robles today Patient is on consistent carb diet IV fluid maintenance therapy lactated Ringer's at 75 mL/HR Monitor labs, CBC, BMP, magnesium, phosphorus Arterial ultrasound bilateral lower extremities is pending Diabetes mellitus type 2: HB A1c is 8.5 Glucometer checks a.c. and HS 1800 ADA diet Humulin R sliding scale Hypertension, hyperlipidemia: Contact [facility] for patient's home medication info Consider resuming home medications once they are reconciled. At time of admission home medications reconciled. Hydralazine 10 mg IV every 4 hours for systolic blood pressure greater than 160 mmHg Atorvastatin as mg by mouth once daily GI prophylaxis, famotidine DVT prophylaxis, Marco's and SCDs ATTESTATION BY PHYSICIAN I have seen and examined the patient. I reviewed the documentation, medical decision making, and treatment plan as noted by the resident provider above. I agree with the findings and plan of care. Jose C Macias MD, BHAVANI MD Mar 31, 2025 18:25
[2025-03-31 20:00] VITALS: BP 100/44; PULSE 90; RESP 18; TEMP 100.7; O2SAT 98
[2025-04-01] VITALS (7 sets, daily range): BP systolic 110–135; BP diastolic 56–82; PULSE 89–99; RESP 17–18; TEMP 97.4–100.2; O2SAT 96–98
[2025-04-01 05:53] LABS: NUCLEATED RED BLOOD CELLS 0.0 % (0.0-0.19); PLATELET COUNT (AUTO) 224.0 K/uL (130-400); RED BLOOD CELL COUNT(AUTO) 3.68 MIL/uL (4.50-6.20); RED CELL DISTRIBUTION WIDTH 13.1 % (11.0-15.5); WHITE BLOOD COUNT (AUTO) 16.0 K/uL (4.8-10.8)
[2025-04-01 06:25] LABS: CREATININE 1.1 mg/dL (0.5-1.3); GLOMERULAR FILTR. RATE CALC 76.0 mL/min (>90); GLUCOSE,RANDOM 221.0 mg/dL (70-105); SODIUM SERUM 128.0 mmol/L (136-145); UREA NITROGEN, BLOOD 16.0 mg/dL (7-18)
--- NOTE | 2025-04-01 06:49 | PN ---
SUBJECTIVE: The patient is a very pleasant 60-year-old diabetic male, followed for extensive gangrene and sepsis due to a left foot infection. Recommendations have been made by multiple services for the patient to have a lower extremity amputation. He was actually scheduled for the procedure yesterday with the general surgery service and then refused prior to the scheduled surgery, requesting further opinions. He had another opinion performed and the patient is now in agreement to proceed with surgical intervention for a [id number] amputation on that left side and the general surgery service has been notified and the patient has currently been n.p.o. His white count has decreased to 16.0. His H and H 11.2 and 31.7. He is currently receiving vancomycin and Zosyn. Blood cultures are showing no growth x 48 hours. REVIEW OF SYSTEMS: CONSTITUTIONAL: The patient is feeling weak. The patient is feeling tired. EXTREMITIES: The patient is having pain to the left foot. He has a well-healed transmetatarsal amputation on the right. He has palpable pedal pulses on the right. Could not palpate his pedal pulse on the left. The left foot is edematous, ruborous. There is a fluctuant large bulla encompassing entire plantar aspect of his left foot, hemorrhagic in nature, intense edema, erythema, and cellulitis to the entire left foot. Review of his x-rays showed extensive gas encompassing the entire plantar and dorsal surface of the left foot extending to the ankle. ASSESSMENT: Sepsis, gas gangrene both dorsally and plantarly. The gas gangrene is encompassing the entire plantar aspect of the left foot, the entire dorsal aspect of the left foot, and anterior ankle. Uncontrolled diabetes, deep plantar space infection, necrotizing fasciitis, gas gangrene, hypertension, hyperlipidemia, medical noncompliance. The patient has had multiple opinions by the medical staff. All have recommended a [id number] amputation on that left side. The patient was scheduled for the procedure yesterday, refused. He is now in agreement and surgery service has been notified and the patient is n.p.o. after midnight. PLAN: Awaiting evaluation for lower extremity amputation on the left side by the surgery service. Continue with the IV vancomycin and the IV Zosyn. It was explained to the patient and family members in detail the necessity of having a [id number] amputation due to the patient's extensive gas gangrene, necrotizing fasciitis, and sepsis. The patient and family members were in agreement to proceed with a [id number] amputation today by the general surgery service. TID: [id number] RECEIPT: [id number]
[2025-04-01] MEDS ORDERED: PoTASSium chloRIDE 20MEQ ER 20 MEQ ERTAB PO PRN (08:00)
[2025-04-01] MEDS: PoTASSium chl 10% ELIXIR 20MEQ 20 MEQ/15 ML UDCUP PO PRN (09:22)
--- NOTE | 2025-04-01 11:24 | PN ---
This is a 60-year-old male with concerns of left lower extremity gas gangrene in need of BKA Interval history: This 60-year-old male seen in his room resting Patient evaluated for 2nd opinion by Podiatry also recommending BKA After conversation with family patient is now on board with surgical intervention Cardiac clearance currently pending Patient has had diet this morning so surgical intervention not to be scheduled for today Physical exam General: Awake alert and oriented Heart: Regular rate and rhythm} Lungs: Clear to auscultation no distress Abdomen: [Soft, nontender, nondistended Significant edema with fluctuance bulla Significant cellulitis to left lower extremity Assessment : This is a 60-year-old male with need of for left BKA Plan: At this point in time we will await for cardiac clearance Once patient is cleared doctor Barnes to schedule patient for surgical intervention likely this Patient made aware of plan and agrees Patient to continue with diet until surgery scheduled Nursing to report any further acute events Dr. Barnes to be updated on patient's status Vitals/Labs Vital Signs Date Time Temp Pulse Resp B/P (MAP) Pulse Ox O2 Delivery O2 Flow Rate FiO2 04/01/25 04:00 100.2 99 18 121/65 95 Room Air 21 03/31/25 20:00 0 Laboratory Tests 04/01/25 05:17 Medications Current Medications Sodium Chloride 2,667 ml @ 889 mls/hr ONCE ONCE IV Last administered on 03/29/25at 19:28; Start 03/29/25 at 19:30; Stop 03/29/25 at 22:29; Status DC Acetaminophen 1,000 mg ONCE ONCE PO Last administered on 03/29/25at 19:29; Start 03/29/25 at 19:30; Stop 03/29/25 at 19:31; Status DC Morphine Sulfate 4 mg ONCE ONCE IVP Last administered on 03/29/25at 19:39; Start 03/29/25 at 19:30; Stop 03/29/25 at 19:31; Status DC Piperacillin Sod/ Tazobactam Sod 3.375 gm ONCE ONCE IV Last administered on 03/29/25at 20:17; Start 03/29/25 at 20:00; Stop 03/29/25 at 20:01; Status DC Vancomycin HCl 1 gm ONCE ONCE IV Last administered on 03/29/25at 21:37; Start 03/29/25 at 20:00; Stop 03/29/25 at 20:01; Status DC Insulin Human Regular INSULIN SLIDING SCAL... ACHS SQ Last administered on 04/01/25at 05:57; Start 03/30/25 at 07:30; Stop 04/29/25 at 07:29 Vancomycin HCl 1 each AD IV; Start 03/29/25 at 21:30; Stop 04/12/25 at 21:29 Piperacillin Sod/ Tazobactam Sod 3.375 gm Q8H IV Last administered on 04/01/25at 04:55; Start 03/30/25 at 04:00; Stop 04/09/25 at 03:59 Acetaminophen 650 mg Q6H PRN PO Last administered on 04/01/25at 04:56; Start 03/29/25 at 21:30; Stop 04/28/25 at 21:29 Famotidine 20 mg DAILY PO Last administered on 04/01/25at 09:21; Start 03/30/25 at 09:00; Stop 04/29/25 at 08:59 Hydralazine HCl 10 mg Q6H PRN IV; Start 03/29/25 at 21:30; Stop 04/28/25 at 21:29 Lactated Ringer's 1,000 ml @ 75 mls/hr [id number] IV Last administered on 03/31/25at 20:27; Start 03/29/25 at 21:30; Stop 04/28/25 at 21:29 Morphine Sulfate 2 mg Q4H PRN IVP Last administered on 04/01/25at 09:37; Start 03/29/25 at 21:30; Stop 04/05/25 at 21:29 Ondansetron HCl 4 mg Q6H PRN IV; Start 03/29/25 at 21:30; Stop 04/28/25 at 21:29 Atorvastatin Calcium 40 mg HS PO Last administered on 03/31/25at 20:27; Start 03/30/25 at 21:00; Stop 04/29/25 at 20:59 Vancomycin HCl 250 ml @ 125 mls/hr Q12H IV Last administered on 04/01/25at 09:25; Start 03/30/25 at 09:00; Stop 04/09/25 at 08:59 Sodium Chloride 500 ml @ 0 mls/hr Q0M ONCE IV Last administered on 03/30/25at 00:39; Start 03/30/25 at 00:30; Stop 03/30/25 at 00:35; Status DC Morphine Sulfate 2 mg ONCE ONCE IVP Last administered on 03/30/25at 04:59; Start 03/30/25 at 05:00; Stop 03/30/25 at 05:01; Status DC Magnesium Sulfate 50 ml @ 0 mls/hr PROTOCOL PRN IV Last administered on 03/30/25at 12:14; Start 03/30/25 at 08:00; Stop 04/29/25 at 07:59 Morphine Sulfate 2 mg ONCE ONCE IVP Last administered on 03/31/25at 22:49; Start 03/31/25 at 23:00; Stop 03/31/25 at 23:01; Status DC Potassium Chloride 100 ml @ 100 mls/hr AD PRN IV; Start 04/01/25 at 08:00; Stop 05/01/25 at 07:59 Potassium Chloride 20 meq AD PRN PO Last administered on 04/01/25at 09:22; Start 04/01/25 at 08:00; Stop 05/01/25 at 07:59 Potassium Chloride 20 meq AD PRN PO; Start 04/01/25 at 08:00; Stop 05/01/25 at 07:59 ERICH CERVANTES Jr. Apr 01, 2025 11:24
[2025-04-01] MEDS ORDERED: LISI2.5T13 PO (11:46)
[2025-04-01] MEDS ORDERED: INSU300I SQ (11:46)
[2025-04-01] MEDS ORDERED: ATOR10TA69 PO (11:46)
--- NOTE | 2025-04-01 12:50 | CONS ---
[facility] CARDIOLOGY CONSULTATION REPORT Cardiology consultation note dictated for Ragini Black MD Date Patient Seen: Apr 01, 2025 Requesting Physician: SHAMA Sepulveda Reason for Consultation: Perioperative risk assessment History of Present Illness: This is a 60-year-old male with a past medical history of hypertension, hyperlipidemia, diabetes mellitus type 2, self-reported CVA, 2D Echocardiogram on 02/05/2016 demonstrated an EF of 50%, hypokinesis in the mid inferoseptal, mid inferior, mid anterior, and apical anterior wall with grade 1 diastolic dysfunction.and PAD s/p right TMA in 08/2021 who presented to the ED with complaints of the left lower extremity discomfort for approximately 3 days. Temperature on admission was 101.8 F with a WBC of 21.5K/uL and a lactic acid of 3.1. Blood cultures drawn on 03/29/2025 with no growth for 48 hours. Left foot x-ray on 03/29/2025 demonstrated subcutaneous edema and extensive subcutaneous emphysema of the foot with findings concerning for infection resulting in gangrene. BLE arterial Doppler on 03/29/25 revealed RLE with triphasic waveforms in all arteries. LLE with triphasic waveforms in all arteries except the AT, PT, and DP arteries which demonstrated monophasic waveforms. Cardiology has been consulted for perioperative risk assessment for the patient to undergo a left BKA. The patient denied chest pain, chest pressure, palpitations, dizziness, dyspnea, orthopnea, or PND. He does admit that prior to admission, he woke up on the kitchen floor and did not recall how he got there. He states he walked into the kitchen and had an steady gait which may have caused him to lose his balance and fall. EKG on admission demonstrated sinus tachycardia with a heart rate of 114bpm, no acute ischemia noted. Past Medical History: As per HPI and summarized below Past Surgical History: Appendectomy Cholecystectomy Right TMA Family History: Noncontributory Social History: The patient lives alone. Habits: The patient denies alcohol, tobacco, or illicit drug use. Home Meds: Atorvastatin 10 mg q.h.s. Lisinopril 2.5 mg daily Insulin Glargine 40 units subQ daily Gabapentin 600 mg b.i.d. Metformin 1000 mg b.i.d. Current Meds: Medications Dose Ordered Sig/Barak Start Time Stop Time Status Last Admin Insulin Human Regular INSULIN SLIDING SCAL... ACHS 03/30/25 07:30 04/29/25 07:29 04/01/25 12:26 Vancomycin HCl 1 each AD 03/29/25 21:30 04/12/25 21:29 Acetaminophen 650 mg Q6H PRN 03/29/25 21:30 04/28/25 21:29 04/01/25 04:56 Famotidine 20 mg DAILY 03/30/25 09:00 04/29/25 08:59 04/01/25 09:21 Hydralazine HCl 10 mg Q6H PRN 03/29/25 21:30 04/28/25 21:29 Lactated Ringer's 1,000 ml @ 75 mls/hr [id number] 03/29/25 21:30 04/28/25 21:29 03/31/25 20:27 Morphine Sulfate 2 mg Q4H PRN 03/29/25 21:30 04/05/25 21:29 04/01/25 09:37 Ondansetron HCl 4 mg Q6H PRN 03/29/25 21:30 04/28/25 21:29 Atorvastatin Calcium 40 mg HS 03/30/25 21:00 04/29/25 20:59 03/31/25 20:27 Vancomycin HCl 250 ml @ 125 mls/hr Q12H 03/30/25 09:00 04/09/25 08:59 04/01/25 09:25 Magnesium Sulfate 50 ml @ 0 mls/hr PROTOCOL PRN 03/30/25 08:00 04/29/25 07:59 03/30/25 12:14 Potassium Chloride 100 ml @ 100 mls/hr AD PRN 04/01/25 08:00 05/01/25 07:59 Potassium Chloride 20 meq AD PRN 04/01/25 08:00 05/01/25 07:59 04/01/25 09:22 Potassium Chloride 20 meq AD PRN 04/01/25 08:00 05/01/25 07:59 Piperacillin Sod/ Tazobactam Sod 3.375 gm Q8H 04/01/25 14:00 04/11/25 13:59 Review of Systems: CONST: Admits to LLE discomfort. EYES: No recent vision problems. ENT: No congestion, ear pain, or sore throat. C/V: No chest pain, palpitations, or edema. RESP: No cough, congestion, wheezing or shortness of breath. GI: No abdominal pain, nausea, vomiting, constipation, or diarrhea. : No incontinence or dysuria. SKIN: No rash. NEURO: No headache, focal numbness or weakness, dizziness, or seizures. PSYCH: No depression or anxiety. HEME: No abnormal bruising or bleeding. LYMPH: No swollen glands. Physical Examination: GENERAL: No acute distress. HEAD: Normal with no signs of head trauma. EYES: PERRLA, EOMI, conjunctiva and sclera normal. ENT: Hearing grossly intact, normal oropharynx. NECK: Supple without JVD. There is no tenderness, lymphadenopathy, or masses. No thyromegaly. Normal carotid upstrokes without bruits. LUNGS: Clear breath sounds bilaterally. No wheezes, or rhonchi. HEART: Normal rate and rhythm. Normal S1 and S2 without murmurs, gallop or rub. VASC: LLE with 2-3+ edema, dusky discoloration to the left 2nd-5th toes. ABD: Bowel sounds normal, soft, nontender, no masses, no organomegaly. No audible bruits. : Not examined LYMPH: No lymphadenopathy noted. EXT: Rt TMA SKIN: No rashes or lesions noted. NEURO: Awake, alert, and oriented x3. No focal sensory or strength deficits note d. Laboratory: Hematology Labs: Test 04/01/25 05:17 Range/Units White Blood Count 16.0 H 4.8-10.8 K/uL Red Blood Count 3.68 L 4.50-6.20 MIL/uL Hemoglobin 11.2 L 14.0-18.0 g/dL Hematocrit 31.7 L 42-54 % Mean Corpuscular Volume 86.1 79-99 fL Mean Corpuscular Hemoglobin 30.4 27.0-33.0 pg Mean Corpuscular Hemoglobin Concent 35.3 32.0-36.0 g/dL Red Cell Distribution Width 13.1 11.0-15.5 % Platelet Count 224 130-400 K/uL Mean Platelet Volume 11.3 H 7.5-10.5 fL Nucleated Red Blood Cells 0.0 0.0-0.19 % Chemistry Labs: Test 04/01/25 11:49 04/01/25 05:17 03/31/25 04:36 Range/Units Whole Blood Glucose 237 H 70-110 MG/DL Bedside Glucose Comment Notified Nurse Sodium Level 128 L 136-145 mmol/L Potassium Level 3.4 L 3.5-5.1 mmol/L Chloride Level 96 L 101-111 mmol/L Carbon Dioxide Level 26 21-32 mmol/L Blood Urea Nitrogen 16 7-18 mg/dL Creatinine 1.1 0.5-1.3 mg/dL Glomerular Filtration Rate Calc 76 >90 mL/min Random Glucose 221 H 70-105 mg/dL Total Calcium 7.5 L 8.5-10.1 mg/dL Magnesium Level 1.80 1.80-2.40 mg/dL Phosphorus Level 1.7 L 2.5-4.9 mg/dL Diagnostics / Radiology: Impression and Plan: Necrotizing fasciitis, gas gangrene of the LLE Perioperative risk assessment Hypertension Hyperlipidemia Diabetes mellitus type 2 Self-reported CVA 2D Echocardiogram on 02/05/2016 demonstrated an EF of 50%, hypokinesis in the mid inferoseptal, mid inferior, mid anterior, and apical anterior wall with grade 1 diastolic dysfunction PAD s/p right TMA in 08/2021 Perioperative risk assessment The patient is planning to undergo a left BKA for necrotizing fasciitis of the LLE He denied anginal equivalents, troponin was negative x1, an EKG on admission did not demonstrate acute ischemia. The patient is a low risk candidate for an intermediate, noncardiac procedure. His arterial duplex shows multiphasic, normal flow until the trifurcation vessels, so arterial flow appears adequate for healing of BKA Avoid fluid overload as he does have a history of grade 1 diastolic dysfunction Given his comorbidities, I recommend CAD workup, however this can be deferred to outpatient setting. RADHA JUSTICE FELLER OPERATOR Apr 01, 2025 12:50 RAGINI BLACK DO Apr 01, 2025 14:25
--- NOTE | 2025-04-01 12:57 | NUR ---
ROUNDS CARDIO ROUNDED AT BEDSIDE. RADHA JUSTICE NP DISCUSSED TREATMENT PLAN AND INTERVIEWED PATIENT REGARDING CARDIAC HISTORY. PER MRS. JUSTICE, PATIENT IS A LOW RISK CANDIDATE FOR AN INTERMEDIATE, NON CARDIAC PROCEDURE. CLEARED FOR SURGERY. SHAMA JUNG WITH DR. RIBERA NOTIFIED OF CLEARANCE. NO FURTHER ORDERS GIVEN. WILL CONTINUE TO MONITOR.
[2025-04-01] MEDS: ZOSYN 3.375GM +NS 50ML IV SCH (14:35)
--- NOTE | 2025-04-01 15:40 | PN ---
INFECTIOUS DISEASE PROGRESS NOTE Date of Service: Apr 01, 2025 SUBJECTIVE: This is a 60-year-old male patient who was seen and examined at bedside in room 419. Patient is awake, alert and oriented x3. Patient continues with low-grade fevers, had a fever of 100.2 earlier this morning and current temperature is 98.2. WBC still high at 16.0. Patient is now agreeable for a left BKA as recommended and pending cardiac clearance for surgery. Will continue on vancomycin per pharmacy protocol and Zosyn IV and follow up on the wound culture results. PHYSICAL EXAM EYES: Anicteric. Pupils equal and reactive. HENT: No oral thrush seen, moist Oral mucosa. NECK: Supple, no JVD or thyromegaly. LUNGS: Good air entry. No rales, no rhonchi. CARDIOVASCULAR: S1, S2 regular. No murmur heard. ABDOMEN: Soft, non tender, bowel sounds present, no organomegaly CENTRAL NERVOUS SYSTEM: Awake, alert, oriented x 3. No focal deficits. SKIN: No rashes, no swelling. Left foot diabetic ulcer with cellulitis. LYMPHATICS: No peripheral lymphadenopathy. MUSCULOSKELETAL: No joint swelling, erythema or tenderness. EXTREMITIES: No cyanosis or clubbing. History of Right TMA. BACK: No deformity, no pressure ulcer. GENITOURINARY: No dysuria or hematuria. Vital Sign (Last 12 Hours) 04/01/25 04/01/25 04/01/25 04:00 08:00 12:00 Temp 100.2 98.6 98.2 Pulse 99 89 92 Resp 18 17 17 B/P (MAP) 121/65 110/56 130/72 Pulse Ox 95 97 98 O2 Delivery Room Air Room Air Room Air FiO2 21 Intake & Output (last 24hrs) 03/31/25 03/31/25 04/01/25 15:00 23:00 07:00 Output Total 800 ml Balance -800 ml LABS: Laboratory: Test 04/01/25 11:49 04/01/25 05:17 03/31/25 08:05 03/31/25 04:36 Range/Units Whole Blood Glucose 237 H 70-110 MG/DL Bedside Glucose Comment Notified Nurse White Blood Count 16.0 H 4.8-10.8 K/uL Red Blood Count 3.68 L 4.50-6.20 MIL/uL Hemoglobin 11.2 L 14.0-18.0 g/dL Hematocrit 31.7 L 42-54 % Mean Corpuscular Volume 86.1 79-99 fL Mean Corpuscular Hemoglobin 30.4 27.0-33.0 pg Mean Corpuscular Hemoglobin Concent 35.3 32.0-36.0 g/dL Red Cell Distribution Width 13.1 11.0-15.5 % Platelet Count 224 130-400 K/uL Mean Platelet Volume 11.3 H 7.5-10.5 fL Nucleated Red Blood Cells 0.0 0.0-0.19 % Sodium Level 128 L 136-145 mmol/L Potassium Level 3.4 L 3.5-5.1 mmol/L Chloride Level 96 L 101-111 mmol/L Carbon Dioxide Level 26 21-32 mmol/L Blood Urea Nitrogen 16 7-18 mg/dL Creatinine 1.1 0.5-1.3 mg/dL Glomerular Filtration Rate Calc 76 >90 mL/min Random Glucose 221 H 70-105 mg/dL Total Calcium 7.5 L 8.5-10.1 mg/dL Magnesium Level 1.80 1.80-2.40 mg/dL Vancomycin Level Trough 9.8 #L 10.0-20.0 UG/ML Phosphorus Level 1.7 L 2.5-4.9 mg/dL ASSESSMENT: Left foot diabetic ulcer with gas gangrene. Possible left foot osteomyelitis. Left lower extremity cellulitis. Sepsis. Leukocytosis. Poorly controlled Diabetes mellitus. Peripheral vascular disease. History of right foot osteomyelitis with right TMA. Medical noncompliance. PLAN: Continue vancomycin per pharmacy protocol. Continue Zosyn IV. Continue wound care. We will follow up on cultures results. Continue pain management. Continue GI prophylaxis. Patient is now agreeable to a Left [id number] amputation as recommended and pending cardiac clearance for surgery. This case was reviewed and discussed with my supervising physician and the above assessment and plan was formulated and agreed upon. ATTESTATION BY PHYSICIAN I have seen and examined the patient. I reviewed the documentation, medical decision making, and treatment plan as noted by the mid-level provider above. I agree with the findings and plan of care. SONNY HA MD, [facility] Apr 01, 2025 15:40
--- NOTE | 2025-04-01 16:46 | PN ---
[facility] PROGRESS NOTE Date of Service: Apr 01, 2025 Time of Service: 16:18 SUBJECTIVE: Mr. Pires is a 60 year old male with past medical history of hypertension, hyperlipidemia, type 2 diabetes mellitus, appendectomy, right foot TMA was seen and examined today on 03/29/2025. Patient is a good historian of personal health Patient states that he came to the emergency department with a chief complaint of left foot pain. Onset was three days ago. Location is left foot plantar aspect. Duration is on and off. Character is described as sharp. There was no alleviating factors. Symptoms are aggravated with walking. Patient reports associated redness and discoloration to the left foot plantar aspect midfoot area. Today in the emergency department WBCs 21.5, left shift neutrophils 86 %, lactic acid 3.1, glucose 367 mg/dL, urinalysis unremarkable, flu negative, COVID negative. Additionally patient has a temperature of 101.5, heart rate 124, respirations 26 and identified source of infection being in the left foot patient met clinical sepsis criteria. Left foot x-ray shows soft tissue swelling and emphysema. 03/30/25: The patient is examined at the bedside. He is very upset that he is on 1:1 sitter. He said that he joked about the suicidal thoughts and wanting to take people with him. He was angry and demanded to have some food as he was kept NPO for the possibility of amputation surgery. He is given some jelly and 1 dose of morphine for his pain. Tele psych was done and cleared him of 1:[address] Lechuga the bell staff visited him this morning and suggested him the possibility of amputation of his Lft leg due to gas gangrene. He was transitioned to consistent carb diet and then General surgery and Infectious Disease consult was placed on him by Dr. Lechuga. On labs his magnesium is 1.4 and phosphorus is 1.7. He is on vancomycin1 g IV q.12h, Zosyn IV q.8h. Arterial ultrasound is pending. We plan to replace his magnesium and monitor his magnesium and phosphorus levels for tomorrow. 03/31/25: The patient is examined at the bedside. The patient agreed for amputation surgery yesterday but today morning he disagreed. He requested 2nd opinion from another bell staff and we recommended Dr. Robles. Dr. Acuna's consulted him and suggested for below-knee amputation as well to prevent further spread of inf ection and risk of losing the whole limb. The patient finally agreed and a consult with Dr. Gilman is put on for surgery. His WBC downtrended to 17.7 And sodium downtrended to 127. His arterial ultrasound showed: Mild intimal wall thickening in both the lower limb arteries. Both lower limb arteries demonstrate triphasic waveforms except the left anterior tibial, posterior tibial, and dorsalis pedis arteries which demonstrate monophasic waveforms. Calcified plaque in the left posterior tibial artery causing about 50% to 60% diameter stenosis. There is no significant flow limiting lesions in the remainder of the arteries. Left inguinal lymphadenopathy. Raised velocity in the left anterior tibial artery. In prior ultrasound both lower limb arteries demonstrate triphasic waveforms 04/01/2025: This is a 60-year-old male patient who was seen and examined at bedside in room 419. Patient is awake, alert and oriented x3. Patient continues with low-grade fevers, had a fever of 100.2 earlier this morning and current temperature is 98.2. WBC still high at 16.0. Patient is now agreeable for a left BKA as recommended , cardiac clearance for surgery was done by Anuel Flores, PA with Dr. Barnes was notified of clearance and waiting for further orders. Will continue on vancomycin per pharmacy protocol and Zosyn IV and follow up on the wound culture results. REVIEW OF SYSTEMS CONSTITUTIONAL: Denies fevers, chills, or night sweats. No unintentional weight loss reported. NEUROLOGICAL: Denies headache, amaurosis fugax, motor weakness, sensory deficit, vertigo/spinning sensation, gait abnormalities, or tremors. ENT: No hearing loss, otalgia, otorrhea, rhinitis, rhinorrhea, hoarseness, or sore throat. CARDIOVASCULAR: Denies any exertional angina, dyspnea on exertion, orthopnea, paroxysmal nocturnal dyspnea, palpitations, life-threatening arrhythmias, claudication. PULMONARY: Denies any shortness of breath, cough, phlegm/sputum, hemoptysis, pleuritic chest pain. SLEEP: Denies morning headaches, daytime somnolence or napping. Denies difficulty falling asleep, staying asleep, waking from sleep. Denies knowledge of snoring. GASTROINTESTINAL: Denies any type of dysphagia to either liquids or solids. Denies nausea, vomiting, pyrosis, early satiety, abdominal pain, diarrhea, constipation, or changes in stool consistency or caliber. Denies coffee-ground emesis, hematemesis, hematochezia, or melanotic stools. GENITOURINARY: Denies frequency, urgency, nocturia, hematuria or incontinence (Storage/Irritative symptoms.) Low urinary stream, straining to void, urinary intermittency or hesitancy, splitting of the voiding stream, terminal dribbling. ENDOCRINOLOGIC: Denies polyuria, polydipsia, polyphagia or heat/cold intolerances. HEMATOLOGIC: Denies thrombophilia/previous clots, or coagulopathy/bleeding di sorders. ONCOLOGIC: Denies personal history of malignancy. DERMATOLOGIC: Swelling, redness, discoloration, multiple ulcers on the left foot. PSYCHIATRIC: Acute stress due to the possibility of left leg amputation, Denies any suicidal or homicidal ideation. Denies hallucinations. EXTREMITIES: Right foot amputated, swelling, redness, multiple ulcers on the left foot PHYSICAL EXAM GENERAL APPEARANCE: The patient is awake, alert, and oriented, in no acute cardiopulmonary distress. NEUROLOGICAL: Cranial nerves II-XII grossly intact. Motor is 5/5 in bilateral upper and lower extremities proximal to distal. No sensory deficits. HEENT: Face is symmetric. Pupils are equal and reactive. Extraocular movements are intact. NECK: Supple. No JVD. No thyromegaly. No submental, submandibular, pre- /postauricular, occipital or supraclavicular lymphadenopathy. CHEST: Normal chest expansion. No Telemetry. LUNGS: Absence of any rales, rhonchi or any wheezing. CARDIOVASCULAR: Regular. S1 and S2 normal. No appreciable rubs, murmurs or gallops. ABDOMEN: Soft, nontender, and nondistended. There is no rebound, voluntary guarding, or rigidity. : Deferred. No [place]. EXTREMITIES: Right foot amputated, left foot is red, swollen, has multiple ulcers. SKIN: Redness and discoloration of the left foot Vital Signs (last 8hr) Date Time Temp Pulse Resp B/P (MAP) Pulse Ox O2 Delivery O2 Flow Rate FiO2 04/01/25 12:00 98.2 92 17 130/72 98 Room Air LABS: Laboratory: Test 04/01/25 11:49 04/01/25 05:17 03/31/25 08:05 03/31/25 04:36 Range/Units Whole Blood Glucose 237 H 70-110 MG/DL Bedside Glucose Comment Notified Nurse White Blood Count 16.0 H 4.8-10.8 K/uL Red Blood Count 3.68 L 4.50-6.20 MIL/uL Hemoglobin 11.2 L 14.0-18.0 g/dL Hematocrit 31.7 L 42-54 % Mean Corpuscular Volume 86.1 79-99 fL Mean Corpuscular Hemoglobin 30.4 27.0-33.0 pg Mean Corpuscular Hemoglobin Concent 35.3 32.0-36.0 g/dL Red Cell Distribution Width 13.1 11.0-15.5 % Platelet Count 224 130-400 K/uL Mean Platelet Volume 11.3 H 7.5-10.5 fL Nucleated Red Blood Cells 0.0 0.0-0.19 % Sodium Level 128 L 136-145 mmol/L Potassium Level 3.4 L 3.5-5.1 mmol/L Chloride Level 96 L 101-111 mmol/L Carbon Dioxide Level 26 21-32 mmol/L Blood Urea Nitrogen 16 7-18 mg/dL Creatinine 1.1 0.5-1.3 mg/dL Glomerular Filtration Rate Calc 76 >90 mL/min Random Glucose 221 H 70-105 mg/dL Total Calcium 7.5 L 8.5-10.1 mg/dL Magnesium Level 1.80 1.80-2.40 mg/dL Vancomycin Level Trough 9.8 #L 10.0-20.0 UG/ML Phosphorus Level 1.7 L 2.5-4.9 mg/dL Current Medications Medications (Trade) Dose Ordered Sig/Barak Route PRN Reason Start Time Stop Time Status Last Admin Dose Admin Acetaminophen (TYLenol 325MG TAB) 650 mg Q6H PRN PO TEMPERATURE GREATER THAN 101.5 03/29/25 21:30 04/28/25 21:29 04/01/25 04:56 650 MG Atorvastatin Calcium (LIPItor 40MG) 40 mg HS PO 03/30/25 21:00 04/29/25 20:59 03/31/25 20:27 40 MG Famotidine (Pepcid 20mg Tab) 20 mg DAILY PO 03/30/25 09:00 04/29/25 08:59 04/01/25 09:21 20 MG Hydralazine HCl (APRESOLine 20MG INJ) 10 mg Q6H PRN IV For:SBP above 160;DBP above 90 03/29/25 21:30 04/28/25 21:29 Insulin Human Regular (humuLIN R 100 UNIT/ML 3ML) INSULIN SLIDING SCAL... ACHS SQ 03/30/25 07:30 04/29/25 07:29 04/01/25 12:26 4 UNIT Lactated Ringer's 1,000 ml @ 75 mls/hr [id number] IV 03/29/25 21:30 04/28/25 21:29 03/31/25 20:27 75 MLS/HR Magnesium Sulfate 50 ml @ 0 mls/hr PROTOCOL PRN IV hypomagnesemia 03/30/25 08:00 04/29/25 07:59 03/30/25 12:14 25 MLS/HR Morphine Sulfate (morPHINE 2MG SYG) 2 mg Q4H PRN IVP SEVERE PAIN (7-10) 03/29/25 21:30 04/05/25 21:29 04/01/25 14:37 2 MG Ondansetron HCl (zoFRAN 4MG INJ) 4 mg Q6H PRN IV NAUSEA/VOMITING 03/29/25 21:30 04/28/25 21:29 Piperacillin Sod/ Tazobactam Sod (Zosyn 3.375gm+NS 50ml) 3.375 gm Q8H IV 03/30/25 04:00 04/01/25 12:13 DC 04/01/25 04:55 3.375 GM Piperacillin Sod/ Tazobactam Sod (Zosyn 3.375gm+NS 50ml) 3.375 gm Q8H IV 04/01/25 14:00 04/11/25 13:59 04/01/25 14:35 3.375 GM Potassium Chloride 100 ml @ 100 mls/hr AD PRN IV POTASSIUM PROTOCOL 04/01/25 08:00 05/01/25 07:59 Potassium Chloride (K-Dur/Klor-Con 20meq) 20 meq AD PRN PO POTASSIUM PROTOCOL 04/01/25 08:00 05/01/25 07:59 Potassium Chloride (KCl 10% Elixir 20meq/15ml) 20 meq AD PRN PO POTASSIUM PROTOCOL 04/01/25 08:00 05/01/25 07:59 04/01/25 14:45 20 MEQ Vancomycin HCl 250 ml @ 125 mls/hr Q12H IV 03/30/25 09:00 04/09/25 08:59 04/01/25 09:25 125 MLS/HR Vancomycin HCl (Vancomycin Protocol) 1 each AD IV 03/29/25 21:30 04/12/25 21:29 DIAGNOSTICS / RADIOLOGY: [ ] ASSESSMENT: Sepsis Leukocytosis Gas gangrene of left foot Left foot ganglion Diabetes mellitus type 2 Hypertension Hyperlipidemia Hyponatremia PLAN: Sepsis, leukocytosis, gas gangrene of left foot His WBC count downtrended to 16 from 21.4 With neutrophilic predominance. Empiric antibiotic therapy with Zosyn, vancomycin Check blood culture, follow up with the results Foot x-ray showed: 1. Subcutaneous edema and extensive subcutaneous emphysema of the foot. Findings are concerning for infection resulting in gangrene. 2. 1.1 cm radiopaque foreign body versus calcification in plantar soft tissues; Arterial US Showed: IMPRESSION: Mild intimal wall thickening in both the lower limb arteries. Both lower limb arteries demonstrate triphasic waveforms except the left anterior tibial, posterior tibial, and dorsalis pedis arteries which demonstrate monophasic waveforms. Calcified plaque in the left posterior tibial artery causing about 50% to 60% diameter stenosis. There is no significant flow limiting lesions in the remainder of the arteries. Left inguinal lymphadenopathy. Raised velocity in the left anterior tibial artery. In prior ultrasound both lower limb arteries demonstrate triphasic waveforms General surgery consult is placed today Infectious disease consult is done today. Recommended Zosyn and vancomycin. Podiatry consult with done for 2nd opinion. He agrees with Dr. Lechuga and advised for below-knee amputation. Patient agreed and we consulted Dr. Gilman for surgery Dr. Haylee Biggs cleared him for surgery and we notified SHAMA Agee with Dr. Barnes. Hyponatremia Sodium level IS 128 Monitor BMP regularly. Replace sodium with 3% hypertonic saline if the patient develops symptoms or the sodium level drops below 120 Left foot ganglion: Podiatry service done by Dr. Robles yesterday Patient is on consistent carb diet . We will be NPO after planned for surgery. IV fluid maintenance therapy lactated Ringer's at 75 mL/HR Monitor labs, CBC, BMP, magnesium, phosphorus Diabetes mellitus type 2: HB A1c is 8.5 Glucometer checks a.c. and HS 1800 ADA diet Humulin R sliding scale Hypertension, hyperlipidemia: Contact [facility] for [facility]'s home medication info Consider resuming home medications once they are reconciled. At time of admission home medications reconciled. Hydralazine 10 mg IV every 4 hours for systolic blood pressure greater than 160 mmHg Atorvastatin as mg by mouth once daily GI prophylaxis, famotidine DVT prophylaxis, Marco's and SCDs ATTESTATION BY PHYSICIAN I have seen and examined the patient. I reviewed the documentation, medical decision making, and treatment plan as noted by the resident provider above. I agree with the findings and plan of care. Jose C Macias MD, BHAVANI MD Apr 01, 2025 16:46
--- NOTE | 2025-04-01 19:00 | NUR ---
Wound Care [facility] Wound Nurse attempted to wrap the wound to prevent leakage, patient refused, was adamant about doing the wound care himself. Patient given 4x4 gauze, Kerlix wrap and tape to secure the dressing. Addendum: 04/01/25 at 1906 by DAWN BRASHER LVN LVN Wound Care [facility] Wound Wound care was overseen by nurse to ensure proper steps were taken.
[2025-04-02] VITALS: BP 132/74; PULSE 96; RESP 19; TEMP 98.5
[2025-04-02 04:00] VITALS: BP 134/77; PULSE 95; RESP 18; TEMP 98.7
[2025-04-02 05:33] LABS: NUCLEATED RED BLOOD CELLS 0.0 % (0.0-0.19); PLATELET COUNT (AUTO) 270.0 K/uL (130-400); RED BLOOD CELL COUNT(AUTO) 3.85 MIL/uL (4.50-6.20); RED CELL DISTRIBUTION WIDTH 13.2 % (11.0-15.5); WHITE BLOOD COUNT (AUTO) 14.1 K/uL (4.8-10.8)
[2025-04-02 05:47] LABS: CREATININE 1.1 mg/dL (0.5-1.3); GLOMERULAR FILTR. RATE CALC 76.0 mL/min (>90); GLUCOSE,RANDOM 233.0 mg/dL (70-105); SODIUM SERUM 126.0 mmol/L (136-145); UREA NITROGEN, BLOOD 14.0 mg/dL (7-18)
[2025-04-02 08:00] VITALS: BP 128/80; PULSE 98; RESP 17; TEMP 99.4; O2SAT 98
[2025-04-02 12:00] VITALS: BP 114/73; PULSE 88; RESP 16; TEMP 98.6
--- NOTE | 2025-04-02 12:01 | PN ---
[facility] PROGRESS NOTE Date of Service: Apr 02, 2025 Time of Service: 12:01 SUBJECTIVE: Mr. Pires is a 60 year old male with past medical history of hypertension, hyperlipidemia, type 2 diabetes mellitus, appendectomy, right foot TMA was seen and examined today on 03/29/2025. Patient is a good historian of personal health Patient states that he came to the emergency department with a chief complaint of left foot pain. Onset was three days ago. Location is left foot plantar aspect. Duration is on and off. Character is described as sharp. There was no alleviating factors. Symptoms are aggravated with walking. Patient reports associated redness and discoloration to the left foot plantar aspect midfoot area. Today in the emergency department WBCs 21.5, left shift neutrophils 86 %, lactic acid 3.1, glucose 367 mg/dL, urinalysis unremarkable, flu negative, COVID negative. Additionally patient has a temperature of 101.5, heart rate 124, respirations 26 and identified source of infection being in the left foot patient met clinical sepsis criteria. Left foot x-ray shows soft tissue swelling and emphysema. 03/30/25: The patient is examined at the bedside. He is very upset that he is on 1:1 sitter. He said that he joked about the suicidal thoughts and wanting to take people with him. He was angry and demanded to have some food as he was kept NPO for the possibility of amputation surgery. He is given some jelly and 1 dose of morphine for his pain. Tele psych was done and cleared him of 1:[address] Lechuga the financial quantitative analyst visited him this morning and suggested him the possibility of amputation of his Lft leg due to gas gangrene. He was transitioned to consistent carb diet and then General surgery and Infectious Disease consult was placed on him by Dr. Lechuga. On labs his magnesium is 1.4 and phosphorus is 1.7. He is on vancomycin1 g IV q.12h, Zosyn IV q.8h. Arterial ultrasound is pending. We plan to replace his magnesium and monitor his magnesium and phosphorus levels for tomorrow. 03/31/25: The patient is examined at the bedside. The patient agreed for amputation surgery yesterday but today morning he disagreed. He requested 2nd opinion from another financial quantitative analyst and we recommended Dr. Robles. Dr. Acuna's consulted him and suggested for below-knee amputation as well to prevent further spread of inf ection and risk of losing the whole limb. The patient finally agreed and a consult with Dr. Gilman is put on for surgery. His WBC downtrended to 17.7 And sodium downtrended to 127. His arterial ultrasound showed: Mild intimal wall thickening in both the lower limb arteries. Both lower limb arteries demonstrate triphasic waveforms except the left anterior tibial, posterior tibial, and dorsalis pedis arteries which demonstrate monophasic waveforms. Calcified plaque in the left posterior tibial artery causing about 50% to 60% diameter stenosis. There is no significant flow limiting lesions in the remainder of the arteries. Left inguinal lymphadenopathy. Raised velocity in the left anterior tibial artery. In prior ultrasound both lower limb arteries demonstrate triphasic waveforms 04/01/2025: This is a 60-year-old male patient who was seen and examined at bedside in room 419. Patient is awake, alert and oriented x3. Patient continues with low-grade fevers, had a fever of 100.2 earlier this morning and current temperature is 98.2. WBC still high at 16.0. Patient is now agreeable for a left BKA as recommended , cardiac clearance for surgery was done by Anuel Flores, PA with Dr. Barnes was notified of clearance and waiting for further orders. Will continue on vancomycin per pharmacy protocol and Zosyn IV and follow up on the wound culture results. 04/02/2025: The patient is examined at the bedside. He reports no new complaints today. His labs show WBC downtrended to 14.1 from 16.0. His sodium is 126 and magnesium is 1.7. Got the cardiac clearance and waiting for surgery consult. We will continue on vancomycin per pharmacy protocol and Zosyn IV. REVIEW OF SYSTEMS CONSTITUTIONAL: Denies fevers, chills, or night sweats. No unintentional weight loss reported. NEUROLOGICAL: Denies headache, amaurosis fugax, motor weakness, sensory deficit, vertigo/spinning sensation, gait abnormalities, or tremors. ENT: No hearing loss, otalgia, otorrhea, rhinitis, rhinorrhea, hoarseness, or sore throat. CARDIOVASCULAR: Denies any exertional angina, dyspnea on exertion, orthopnea, paroxysmal nocturnal dyspnea, palpitations, life-threatening arrhythmias, claudication. PULMONARY: Denies any shortness of breath, cough, phlegm/sputum, hemoptysis, pleuritic chest pain. SLEEP: Denies morning headaches, daytime somnolence or napping. Denies difficulty falling asleep, staying asleep, waking from sleep. Denies knowledge of snoring. GASTROINTESTINAL: Denies any type of dysphagia to either liquids or solids. D enies nausea, vomiting, pyrosis, early satiety, abdominal pain, diarrhea, constipation, or changes in stool consistency or caliber. Denies coffee-ground emesis, hematemesis, hematochezia, or melanotic stools. GENITOURINARY: Denies frequency, urgency, nocturia, hematuria or incontinence (Storage/Irritative symptoms.) Low urinary stream, straining to void, urinary intermittency or hesitancy, splitting of the voiding stream, terminal dribbling. ENDOCRINOLOGIC: Denies polyuria, polydipsia, polyphagia or heat/cold intolerances. HEMATOLOGIC: Denies thrombophilia/previous clots, or coagulopathy/bleeding disorders. ONCOLOGIC: Denies personal history of malignancy. DERMATOLOGIC: Swelling, redness, discoloration, multiple ulcers on the left foot. PSYCHIATRIC: Acute stress due to the possibility of left leg amputation, Denies any suicidal or homicidal ideation. Denies hallucinations. EXTREMITIES: Right foot TMA, swelling, redness, multiple ulcers on the left foot PHYSICAL EXAM GENERAL APPEARANCE: The patient is awake, alert, and oriented, in no acute cardiopulmonary distress. NEUROLOGICAL: Cranial nerves II-XII grossly intact. Motor is 5/5 in bilateral upper and lower extremities proximal to distal. No sensory deficits. HEENT: Face is symmetric. Pupils are equal and reactive. Extraocular movements are intact. NECK: Supple. No JVD. No thyromegaly. No submental, submandibular, pre- /postauricular, occipital or supraclavicular lymphadenopathy. CHEST: Normal chest expansion. No Telemetry. LUNGS: Absence of any rales, rhonchi or any wheezing. CARDIOVASCULAR: Regular. S1 and S2 normal. No appreciable rubs, murmurs or gallops. ABDOMEN: Soft, nontender, and nondistended. There is no rebound, voluntary guarding, or rigidity. : Deferred. No Menon. EXTREMITIES: Right foot TMA, left foot is red, swollen, has multiple ulcers. SKIN: Redness and discoloration of the left foot Vital Signs (last 8hr) Date Time Temp Pulse Resp B/P (MAP) Pulse Ox O2 Delivery O2 Flow Rate FiO2 04/02/25 08:00 98 Room Air* 0 21 04/02/25 08:00 99.3 98 17 128/80 98 Room Air LABS: Laboratory: Test 04/02/25 11:36 04/02/25 08:02 04/02/25 05:10 04/01/25 17:24 Range/Units Whole Blood Glucose 269 H 70-110 MG/DL Vancomycin Level Trough 10.9 10.0-20.0 UG/ML White Blood Count 14.1 H 4.8-10.8 K/uL Red Blood Count 3.85 L 4.50-6.20 MIL/uL Hemoglobin 11.7 L 14.0-18.0 g/dL Hematocrit 33.4 L 42-54 % Mean Corpuscular Volume 86.8 79-99 fL Mean Corpuscular Hemoglobin 30.4 27.0-33.0 pg Mean Corpuscular Hemoglobin Concent 35.0 32.0-36.0 g/dL Red Cell Distribution Width 13.2 11.0-15.5 % Platelet Count 270 130-400 K/uL Mean Platelet Volume 11.0 H 7.5-10.5 fL Nucleated Red Blood Cells 0.0 0.0-0.19 % Sodium Level 126 L 136-145 mmol/L Potassium Level 4.0 3.5-5.1 mmol/L Chloride Level 95 L 101-111 mmol/L Carbon Dioxide Level 27 21-32 mmol/L Blood Urea Nitrogen 14 7-18 mg/dL Creatinine 1.1 0.5-1.3 mg/dL Glomerular Filtration Rate Calc 76 >90 mL/min Random Glucose 233 H 70-105 mg/dL Total Calcium 7.4 L 8.5-10.1 mg/dL Magnesium Level 1.70 L 1.80-2.40 mg/dL Bedside Glucose Comment Notified Nurse Current Medications Medications (Trade) Dose Ordered Sig/Barak Route PRN Reason Start Time Stop Time Status Last Admin Dose Admin Acetaminophen (TYLenol 325MG TAB) 650 mg Q6H PRN PO TEMPERATURE GREATER THAN 101.5 03/29/25 21:30 04/28/25 21:29 04/01/25 04:56 650 MG Atorvastatin Calcium (LIPItor 40MG) 40 mg HS PO 03/30/25 21:00 04/29/25 20:59 04/01/25 20:46 40 MG Famotidine (Pepcid 20mg Tab) 20 mg DAILY PO 03/30/25 09:00 04/29/25 08:59 04/02/25 08:56 20 MG Hydralazine HCl (APRESOLine 20MG INJ) 10 mg Q6H PRN IV For:SBP above 160;DBP above 90 03/29/25 21:30 04/28/25 21:29 Hydromorphone HCl (DiLAUDid 0.5MG INJ) 0.5 mg Q4H PRN IVP SEVERE PAIN (7-10) 04/02/25 08:30 04/07/25 08:29 04/02/25 09:06 0.5 MG Insulin Human Regular (humuLIN R 100 UNIT/ML 3ML) INSULIN SLIDING SCAL... ACHS SQ 03/30/25 07:30 04/29/25 07:29 04/02/25 11:52 5 UNIT Lactated Ringer's 1,000 ml @ 75 mls/hr [id number] IV 03/29/25 21:30 04/28/25 21:29 04/02/25 06:30 75 MLS/HR Magnesium Sulfate 50 ml @ 0 mls/hr PROTOCOL PRN IV hypomagnesemia 03/30/25 08:00 04/29/25 07:59 03/30/25 12:14 25 MLS/HR Morphine Sulfate (morPHINE 2MG SYG) 2 mg Q4H PRN IVP SEVERE PAIN (7-10) 03/29/25 21:30 04/02/25 08:17 DC 04/02/25 06:30 2 MG Ondansetron HCl (zoFRAN 4MG INJ) 4 mg Q6H PRN IV NAUSEA/VOMITING 03/29/25 21:30 04/28/25 21:29 Piperacillin Sod/ Tazobactam Sod (Zosyn 3.375gm+NS 50ml) 3.375 gm Q8H IV 03/30/25 04:00 04/01/25 12:13 DC 04/01/25 04:55 3.375 GM Piperacillin Sod/ Tazobactam Sod (Zosyn 3.375gm+NS 50ml) 3.375 gm Q8H IV 04/01/25 14:00 04/11/25 13:59 04/02/25 06:29 3.375 GM Potassium Chloride 100 ml @ 100 mls/hr AD PRN IV POTASSIUM PROTOCOL 04/01/25 08:00 05/01/25 07:59 Potassium Chloride (K-Dur/Klor-Con 20meq) 20 meq AD PRN PO POTASSIUM PROTOCOL 04/01/25 08:00 05/01/25 07:59 Potassium Chloride (KCl 10% Elixir 20meq/15ml) 20 meq AD PRN PO POTASSIUM PROTOCOL 04/01/25 08:00 05/01/25 07:59 04/01/25 14:45 20 MEQ Vancomycin HCl 250 ml @ 125 mls/hr Q12H IV 03/30/25 09:00 04/09/25 08:59 04/02/25 08:56 125 MLS/HR Vancomycin HCl (Vancomycin Protocol) 1 each AD IV 03/29/25 21:30 04/12/25 21:29 DIAGNOSTICS / RADIOLOGY: [ ] ASSESSMENT: Sepsis Leukocytosis Gas gangrene of left foot Left foot ganglion Diabetes mellitus type 2 Hypertension Hyperlipidemia Hyponatremia PLAN: Sepsis, leukocytosis, gas gangrene of left foot His WBC count downtrended to 14.1 from 16 today Empiric antibiotic therapy with Zosyn, vancomycin Blood culture showed no growth after 3 days Urine culture showed<1,00,000 CFU Foot x-ray showed: 1. Subcutaneous edema and extensive subcutaneous emphysema of the foot. Findings are concerning for infection resulting in gangrene. 2. 1.1 cm radiopaque foreign body versus calcification in plantar soft tissues; Arterial US Showed: IMPRESSION: Mild intimal wall thickening in both the lower limb arteries. Both lower limb arteries demonstrate triphasic waveforms except the left anterior tibial, posterior tibial, and dorsalis pedis arteries which demonstrate monophasic waveforms. Calcified plaque in the left posterior tibial artery causing about 50% to 60% diameter stenosis. There is no significant flow limiting lesions in the remainder of the arteries. Left inguinal lymphadenopathy. Raised velocity in the left anterior tibial artery. In prior ultrasound both lower limb arteries demonstrate triphasic waveforms General surgery consult is placed today Infectious disease consult is done today. Recommended Zosyn and vancomycin. Podiatry consult with done for 2nd opinion. He agrees with Dr. Lechuga and advised for below-knee amputation. Patient agreed and we consulted Dr. Gilman for surgery Dr. Haylee Biggs cleared him for surgery and we notified SHAMA Agee with Dr. Barnes AND CURRENTLY WAITING FOR SURGERY INSTRUCTIONS Hyponatremia Sodium level is 126 Monitor BMP regularly. Replace sodium with 3% hypertonic saline if the patient develops symptoms or the sodium level drops below 120 Left foot ganglion: Podiatry service done by Dr. Lechuga and Patient is on consistent carb diet . We will be NPO after planned for surgery. IV fluid maintenance therapy lactated Ringer's at 75 mL/HR Monitor labs, CBC, BMP, magnesium, phosphorus Diabetes mellitus type 2: HB A1c is 8.5 Glucometer checks a.c. and HS 1800 ADA diet Humulin R sliding scale Hypertension, hyperlipidemia: Contact [facility] for patient's home medication info Consider resuming home medications once they are reconciled. At time of admission home medications reconciled. Hydralazine 10 mg IV every 4 hours for systolic blood pressure greater than 160 mmHg Atorvastatin 40 mg by mouth once daily GI prophylaxis, famotidine DVT prophylaxis, Marco's and SCDs ATTESTATION BY PHYSICIAN I have seen and examined the patient. I reviewed the documentation, medical decision making, and treatment plan as noted by the resident provider above. I agree with the findings and plan of care. Jose C Macias MD, BHAVANI MD Apr 02, 2025 12:01
--- NOTE | 2025-04-02 15:45 | PN ---
INFECTIOUS DISEASE PROGRESS NOTE Date of Service: Apr 02, 2025 SUBJECTIVE: This is a 60-year-old male patient who is scheduled for a left [id number] amputation for tomorrow. No fever this morning, temperature is 98.6 and the WBC has trended down to 14.1. Will continue on vancomycin per pharmacy protocol and Zosyn IV. Pain being management with Dilaudid. PHYSICAL EXAM EYES: Anicteric. Pupils equal and reactive. HENT: No oral thrush seen, moist Oral mucosa. NECK: Supple, no JVD or thyromegaly. LUNGS: Good air entry. No rales, no rhonchi. CARDIOVASCULAR: S1, S2 regular. No murmur heard. ABDOMEN: Soft, non tender, bowel sounds present, no organomegaly CENTRAL NERVOUS SYSTEM: Awake, alert, oriented x 3. No focal deficits. SKIN: No rashes, no swelling. Left foot diabetic ulcer with cellulitis. LYMPHATICS: No peripheral lymphadenopathy. MUSCULOSKELETAL: No joint swelling, erythema or tenderness. EXTREMITIES: No cyanosis or clubbing. History of Right TMA. BACK: No deformity, no pressure ulcer. GENITOURINARY: No dysuria or hematuria. Vital Sign (Last 12 Hours) 04/02/25 04/02/25 04/02/25 04/02/25 04:00 08:00 08:00 12:00 Temp 98.8 99.3 98.6 Pulse 95 98 88 Resp 18 17 16 B/P (MAP) 134/77 128/80 114/73 Pulse Ox 96 98 98 98 O2 Delivery Room Air Room Air Room Air* Room Air O2 Flow Rate 0 FiO2 21 21 Intake & Output (last 24hrs) 04/01/25 04/01/25 04/02/25 15:00 23:00 07:00 Intake Total 1500 ml Balance 1500 ml LABS: Laboratory: Test 04/02/25 11:36 04/02/25 08:02 04/02/25 05:10 04/01/25 17:24 Range/Units Whole Blood Glucose 269 H 70-110 MG/DL Vancomycin Level Trough 10.9 10.0-20.0 UG/ML White Blood Count 14.1 H 4.8-10.8 K/uL Red Blood Count 3.85 L 4.50-6.20 MIL/uL Hemoglobin 11.7 L 14.0-18.0 g/dL Hematocrit 33.4 L 42-54 % Mean Corpuscular Volume 86.8 79-99 fL Mean Corpuscular Hemoglobin 30.4 27.0-33.0 pg Mean Corpuscular Hemoglobin Concent 35.0 32.0-36.0 g/dL Red Cell Distribution Width 13.2 11.0-15.5 % Platelet Count 270 130-400 K/uL Mean Platelet Volume 11.0 H 7.5-10.5 fL Nucleated Red Blood Cells 0.0 0.0-0.19 % Sodium Level 126 L 136-145 mmol/L Potassium Level 4.0 3.5-5.1 mmol/L Chloride Level 95 L 101-111 mmol/L Carbon Dioxide Level 27 21-32 mmol/L Blood Urea Nitrogen 14 7-18 mg/dL Creatinine 1.1 0.5-1.3 mg/dL Glomerular Filtration Rate Calc 76 >90 mL/min Random Glucose 233 H 70-105 mg/dL Total Calcium 7.4 L 8.5-10.1 mg/dL Magnesium Level 1.70 L 1.80-2.40 mg/dL Bedside Glucose Comment Notified Nurse ASSESSMENT: Left foot diabetic ulcer with gas gangrene. Possible left foot osteomyelitis. Left lower extremity cellulitis. Sepsis. Leukocytosis. Hyponatremia. Poorly controlled Diabetes mellitus. Peripheral vascular disease. History of right foot osteomyelitis with right TMA. Medical noncompliance. PLAN: Continue vancomycin per pharmacy protocol. Continue Zosyn IV. Continue wound care. We will follow up on cultures results. Continue pain management. Continue GI prophylaxis. Scheduled for Left [id number] amputation for tomorrow. This case was reviewed and discussed with my supervising physician and the above assessment and plan was formulated and agreed upon. ATTESTATION BY PHYSICIAN I have seen and examined the patient. I reviewed the documentation, medical decision making, and treatment plan as noted by the mid-level provider above. I agree with the findings and plan of care. SONNY HA MD, [facility] Apr 02, 2025 15:45
[2025-04-02 16:00] VITALS: BP 128/66; PULSE 91; RESP 17; TEMP 98.2
--- NOTE | 2025-04-02 17:04 | NUR ---
BEHAVIOR PATIENT IS YELLING IN THE ROOM SAYING HE NEEDS TO GO HOME TO GET BANK STATEMENTS. DAUGHTER YELLING BACK AT PATIENT. I TOLD PATIENT THAT HE COULD NOT LEAVE AND COME BACK. SUGGESTED A FAMILY MEMBER TO GET DOCUMENTS FOR HIM. HE STATED "I'M GOING TO TO GET THEM MYSELF." PATIENT THEN PROCEEDS TO SLIDE HIMSELF OFF THE BED. CALLED CHARGE NURSE TO HELP DEESCALATE. 1707 CHARGE NURSE IN TO SPEAK TO PATIENT. PATIENT STILL YELLING BUT MANAGED TO HELP CALM HIM DOWN. PATIENT NOW BACK IN BED.
--- NOTE | 2025-04-02 17:16 | PN ---
This is a 60-year-old male with significant left lower extremity infection the foot requiring BKA Interval history: This 60-year-old male seen in his room resting Patient has been seen by Cardiology and cleared for surgery No acute events reported overnight Patient otherwise stable and agrees with surgical intervention tomorrow Physical exam General: Awake alert and oriented Heart: Regular rate and rhythm} Lungs: Clear to auscultation no distress Abdomen: [Soft, nontender, nondistended No significant changes to left lower extremity with significant cellulitis Assessment : This is a 60-year-old male with significant left lower extremity gas gangrene in need of BKA Plan: At this point in time patient to be scheduled for BKA tomorrow by Dr. Barnes Patient to be allowed diet today and made NPO at midnight Patient will need to sign consent for procedure tomorrow Surgical team to follow patient closely nursing report any further acute events Vitals/Labs Vital Signs Date Time Temp Pulse Resp B/P (MAP) Pulse Ox O2 Delivery O2 Flow Rate FiO2 04/02/25 16:00 98.2 91 17 128/66 97 Room Air 04/02/25 08:00 0 21 Laboratory Tests 04/02/25 05:10 Medications Current Medications Sodium Chloride 2,667 ml @ 889 mls/hr ONCE ONCE IV Last administered on 03/29/25at 19:28; Start 03/29/25 at 19:30; Stop 03/29/25 at 22:29; Status DC Acetaminophen 1,000 mg ONCE ONCE PO Last administered on 03/29/25at 19:29; Start 03/29/25 at 19:30; Stop 03/29/25 at 19:31; Status DC Morphine Sulfate 4 mg ONCE ONCE IVP Last administered on 03/29/25at 19:39; Start 03/29/25 at 19:30; Stop 03/29/25 at 19:31; Status DC Piperacillin Sod/ Tazobactam Sod 3.375 gm ONCE ONCE IV Last administered on 03/29/25at 20:17; Start 03/29/25 at 20:00; Stop 03/29/25 at 20:01; Status DC Vancomycin HCl 1 gm ONCE ONCE IV Last administered on 03/29/25at 21:37; Start 03/29/25 at 20:00; Stop 03/29/25 at 20:01; Status DC Insulin Human Regular INSULIN SLIDING SCAL... ACHS SQ Last administered on 04/02/25at 11:52; Start 03/30/25 at 07:30; Stop 04/29/25 at 07:29 Vancomycin HCl 1 each AD IV; Start 03/29/25 at 21:30; Stop 04/12/25 at 21:29 Piperacillin Sod/ Tazobactam Sod 3.375 gm Q8H IV Last administered on 04/01/25at 04:55; Start 03/30/25 at 04:00; Stop 04/01/25 at 12:13; Status DC Acetaminophen 650 mg Q6H PRN PO Last administered on 04/01/25at 04:56; Start 03/29/25 at 21:30; Stop 04/28/25 at 21:29 Famotidine 20 mg DAILY PO Last administered on 04/02/25at 08:56; Start 03/30/25 at 09:00; Stop 04/29/25 at 08:59 Hydralazine HCl 10 mg Q6H PRN IV; Start 03/29/25 at 21:30; Stop 04/28/25 at 21:29 Lactated Ringer's 1,000 ml @ 75 mls/hr [id number] IV Last administered on 04/02/25at 06:30; Start 03/29/25 at 21:30; Stop 04/28/25 at 21:29 Morphine Sulfate 2 mg Q4H PRN IVP Last administered on 04/02/25at 06:30; Start 03/29/25 at 21:30; Stop 04/02/25 at 08:17; Status DC Ondansetron HCl 4 mg Q6H PRN IV; Start 03/29/25 at 21:30; Stop 04/28/25 at 21:29 Atorvastatin Calcium 40 mg HS PO Last administered on 04/01/25at 20:46; Start 03/30/25 at 21:00; Stop 04/29/25 at 20:59 Vancomycin HCl 250 ml @ 125 mls/hr Q12H IV Last administered on 04/02/25at 08:56; Start 03/30/25 at 09:00; Stop 04/09/25 at 08:59 Sodium Chloride 500 ml @ 0 mls/hr Q0M ONCE IV Last administered on 03/30/25at 00:39; Start 03/30/25 at 00:30; Stop 03/30/25 at 00:35; Status DC Morphine Sulfate 2 mg ONCE ONCE IVP Last administered on 03/30/25at 04:59; Start 03/30/25 at 05:00; Stop 03/30/25 at 05:01; Status DC Magnesium Sulfate 50 ml @ 0 mls/hr PROTOCOL PRN IV Last administered on 03/30/25at 12:14; Start 03/30/25 at 08:00; Stop 04/29/25 at 07:59 Morphine Sulfate 2 mg ONCE ONCE IVP Last administered on 03/31/25at 22:49; Start 03/31/25 at 23:00; Stop 03/31/25 at 23:01; Status DC Potassium Chloride 100 ml @ 100 mls/hr AD PRN IV; Start 04/01/25 at 08:00; Stop 05/01/25 at 07:59 Potassium Chloride 20 meq AD PRN PO Last administered on 04/01/25at 14:45; Start 04/01/25 at 08:00; Stop 05/01/25 at 07:59 Potassium Chloride 20 meq AD PRN PO; Start 04/01/25 at 08:00; Stop 05/01/25 at 07:59 Piperacillin Sod/ Tazobactam Sod 3.375 gm Q8H IV Last administered on 04/02/25at 15:52; Start 04/01/25 at 14:00; Stop 04/11/25 at 13:59 Hydromorphone HCl 0.5 mg Q4H PRN IVP Last administered on 04/02/25at 13:09; Start 04/02/25 at 08:30; Stop 04/07/25 at 08:29 ERICH CERVANTES Jr. Apr 02, 2025 17:16
[2025-04-02 20:00] VITALS: BP 122/86; PULSE 82; RESP 20; TEMP 98.5; O2SAT 99
--- NOTE | 2025-04-02 20:00 | NUR ---
BEHAVIOR: PT ASKING FOR ASSISTANCE TO GO INTO RESTROOM, DAUGHTER AT BEDSIDE. PT INFORMED HE SHOULD NOT BE BEARING ANY WEIGHT TO THE LEFT FOOT, PER DOCTOR'S ORDERS. PT CONTINUOS TO PUT WEIGHT ON THE LEFT FOOT. PT INSTRUCTED ON PLANNED SURGERY FOR AM AND SHOULD NOT EAT/DRINK ANYTHING AFTER MIDNIGHT. PT/DAUGHTER VERBALIZE UNDERSTANDING.
--- NOTE | 2025-04-02 20:47 | PN ---
SUBJECTIVE: Mr. Reinoso is a 60-year-old dominant male followed for gas gangrenous and sepsis involving the left foot and uncontrolled diabetes. The patient is scheduled for a [id number] amputation tomorrow to be done by the General Surgery Service on that left side. He is afebrile, 99.3, blood pressure 128/80, pulse 98, respirations 17. White count trending down at 14.1. The patient is currently receiving IV Zosyn and IV vancomycin. The patient is without any complaints of pain to the left foot. Blood cultures are showing no growth. REVIEW OF SYSTEMS: CONSTITUTIONAL: He is feeling weak. He is feeling tired. He is having pain to the left foot. MUSCULOSKELETAL: He has a well-healed transmetatarsal amputation on the right. He has palpable pedal pulses on the right. I could not palpate his pedal pulses on the left. His left foot is edematous, ruborous, fluctuant, large bowling encompassing the entire plantar aspect of the left foot, hemorrhagic in nature, intense edema, erythema, and cellulitis of the entire left foot. Review of his x-rays showed gas encompassing the entire plantar and entire dorsal surface of the left foot to the ankle. ASSESSMENT: Sepsis, gas gangrene dorsally and plantarly. Gas gangrene is encompassing the entire plantar aspect of the left foot, the entire dorsal aspect of the left foot, and anterior ankle. Uncontrolled diabetes, deep plantar space infection, necrotizing fascia, gas gangrene, hypertension, hyperlipidemia, and medical noncompliance. The patient is scheduled for a [id number] amputation on that left side tomorrow with the General Surgery Service. PLAN: Awaiting the amputation of the left lower extremity to be performed tomorrow by the General Surgery Service. Continue with antibiotics, offloading measures, local wound care, and follow the patient closely while in the house. TID: [id number] RECEIPT: [id number]
--- NOTE | 2025-04-02 21:00 | NUR ---
DRESSING: PT CONTINUES TO MESS AND TAKE DRESSING OFF. PT IS TOUCHING LEFT FOOT WITH WOUND WITH UNGLOVED AND UNWASHED HANDS. PT INSTRUCTED ON HAND WASHING AND INFECTION PREVENTION. LEFT FOOT DRESSED AGAIN AT THIS TIME AND ASKED PT NOT TO BE REMOVING OR TOUCHING WITH BARE HANDS.
[2025-04-03] VITALS (28 sets, daily range): BP systolic 100–136; BP diastolic 54–96; PULSE 70–97; RESP 13–20; TEMP 97.6–99.2; O2SAT 96
--- NOTE | 2025-04-03 | NUR ---
NPO: PT REMINDED AGAIN THAT HE CANNOT DRINK/EAT ANYTHING AFTER 0000 FOR LEFT BELOW KNEE AMPUTATION IN AM. DRINKS/FOOD REMOVED FROM BEDSIDE TABLE. PT VERBALIZES UNDERSTANDING.
[2025-04-03 04:47] LABS: NUCLEATED RED BLOOD CELLS 0.0 % (0.0-0.19); PLATELET COUNT (AUTO) 316 K/uL (130-400); RED BLOOD CELL COUNT(AUTO) 3.66 MIL/uL (4.50-6.20); RED CELL DISTRIBUTION WIDTH 13.2 % (11.0-15.5); WHITE BLOOD COUNT (AUTO) 13.5 K/uL (4.8-10.8)
[2025-04-03 05:10] LABS: CREATININE 1.0 mg/dL (0.5-1.3); GLOMERULAR FILTR. RATE CALC 86.0 mL/min (>90); GLUCOSE,RANDOM 188.0 mg/dL (70-105); SODIUM SERUM 127.0 mmol/L (136-145); UREA NITROGEN, BLOOD 13.0 mg/dL (7-18)
--- NOTE | 2025-04-03 07:04 | PN ---
SUBJECTIVE: The patient followed up for a gas gangrene, necrotizing fasciitis to his left foot dorsally and plantarly extending to the ankle. White count trended down to 13.5, H and H 11.4 and 31.4, platelets 316. The patient is scheduled to go to surgery today for an amputation with the General Surgery Service and a tfivw-ddj-ljzg level amputation on that left side. The patient is in agreement with the plan for surgical intervention. He has been made n.p.o. after midnight. He is scheduled for surgery with Dr. Barnes. He is remaining afebrile 99.1, pulse 97, respirations 20, blood pressure 100/69. OBJECTIVE: His examination today: Ischemic, necrotic, hemorrhagic, bullous lesion encompassing the entire plantar aspect of the left foot. Edema, erythema, intense cellulitis entire left foot. ASSESSMENT AND PLAN: Gas gangrene, necrotizing fasciitis, dorsal and plantar aspect of the left foot, deep plantar space infection. The patient's foot is non-salvageable due to the severity of his infection. The patient is scheduled for luyca-ntl-poyl amputation today with General Surgery Service. The patient has been n.p.o. after midnight tonight. The patient is in agreement to the plan for surgical intervention with a bzgcx-fww-gtvh amputation on the left side. TID: [id number] RECEIPT: [id number]
--- NOTE | 2025-04-03 07:40 | NUR ---
PATIENT TAKEN DOWN FOR LEFT BKA. NO SIGNS OF DISTRESS NOTED. SENT PATIENT DOWN WITH ZOSYN, VANCO, AND MAGNESIUM.
[2025-04-03] MEDS ORDERED: LIDOCAINE PF 100MG/5ML (2%) SYRINGE 5ML ONE (10:41)
[2025-04-03] MEDS ORDERED: MIDAZOLAM HCL 1 MG/ML 2ML VIAL ONE (10:42)
[2025-04-03] MEDS ORDERED: ALBUMIN (HUMAN) 5% 250 ML IV ONE (11:59)
--- NOTE | 2025-04-03 12:49 | OP ---
Operative Note: DATE OF PROCEDURE: 04/03/25 SURGEON: BRODERICK RIBERA DO COMMERCIAL PRODUCER: None ANESTHESIA: General ANESTHESIOLOGIST/ORDNANCE ARTIFICER HELPER: JED Caruso PREOPERATIVE DIAGNOSIS: Left foot gangrene POSTOPERATIVE DIAGNOSIS: Left foot gangrene SYNOPSIS: None PROCEDURE: Left xklmw-gxj-mzlu amputation ESTIMATED BLOOD LOSS: 200 cc INDICATIONS: This is a 60-year-old male that presented to the emergency department with acute on chronic worsening of the left foot swelling black discoloration. Patient was seen by Podiatry who recommended below-knee amputation. The patient did not want the foot to come off so he asked for another opinion. The 2nd welding machine operator arc saw the patient and also recommended below- knee amputation. I recommended below-knee amputation. I discussed the procedure with the patient. All questions were answered. The patient expressed understanding and agreement with the plan. DESCRIPTION OF PROCEDURE: The patient was placed on the operating table in the supine position. After adequate sedation the patient was intubated by anesthesia. Perioperative antibiotics were given. The patient's left lower extremity was prepped and draped in the usual sterile fashion. A time-out was performed. I traced the anterior and posterior flaps starting approximately 15 cm distal to the tibial tuberosity. The anterior and posterior skin incisions were made circumferentially. And the subcutaneous tissue and muscle was dissected using electrocautery to encircle the bone. The tibia was transected about 2 cm proximal to the anterior flap line. The fibula was transected 2 cm proximal to the tibial transection margin. The the vascular structures were suture ligated and the posterior flap was divided using amputation knife. The nerves were cut under tension to retract. All edges of the bone were rounded using the bone saw and a bone rasp. A bubble was made on the anterior portion of the tibia. The wound was copiously irrigated with sterile saline. The fascia was approximated in two layers using sutures of 0 Vicryl. The dermal layer was approximated using interrupted sutures of 3-0 Vicryl. The skin was approximated using skin mariann. The wound was dressed with Xeroform, gauze, ABD, Kerlix, and Osmani wrap. The patient tolerated the procedure well. All instrument, needle, and sponge counts were correct at the end of the procedure. The patient was aroused from sedation, extubated, and transferred to the postanesthesia care unit in good condition. BRODERICK RIBERA DO Apr 03, 2025 12:49
--- NOTE | 2025-04-03 13:42 | PN ---
INFECTIOUS DISEASE PROGRESS NOTE Date of Service: Apr 03, 2025 SUBJECTIVE: The WBC has trended down to 13.5 today and no reports of fever throughout the night, current temperature is 99.3. Patient is scheduled for a left uopwr-lzj-rnng amputation for today. Will continue on vancomycin and Zosyn IV. No other issues reported by nursing. PHYSICAL EXAM EYES: Anicteric. Pupils equal and reactive. HENT: No oral thrush seen, moist Oral mucosa. NECK: Supple, no JVD or thyromegaly. LUNGS: Good air entry. No rales, no rhonchi. CARDIOVASCULAR: S1, S2 regular. No murmur heard. ABDOMEN: Soft, non tender, bowel sounds present, no organomegaly CENTRAL NERVOUS SYSTEM: Awake, alert, oriented x 3. No focal deficits. SKIN: No rashes, no swelling. Left foot diabetic ulcer with cellulitis. LYMPHATICS: No peripheral lymphadenopathy. MUSCULOSKELETAL: No joint swelling, erythema or tenderness. EXTREMITIES: No cyanosis or clubbing. History of Right TMA. BACK: No deformity, no pressure ulcer. GENITOURINARY: No dysuria or hematuria. Vital Sign (Last 12 Hours) 04/03/25 04/03/25 04/03/25 04/03/25 04:00 08:00 08:27 13:10 Temp 99.1 97.9 97.5 Pulse 97 70 88 Resp 20 18 13 B/P (MAP) 100/69 126/72 115/70 Pulse Ox 98 98 100 O2 Delivery Room Air Room Air* Room Air Nonrebreathing Mask O2 Flow Rate 0 10.0 FiO2 21 21 100 04/03/25 04/03/25 04/03/25 04/03/25 13:15 13:20 13:25 13:30 Pulse 92 94 95 93 Resp 15 20 20 18 B/P (MAP) 132/82 134/75 121/67 111/57 Pulse Ox 100 100 100 99 O2 Delivery Nonrebreathing Mask Nonrebreathing Mask Nonrebreathing Mask Nasal Cannula O2 Flow Rate 10.0 10.0 10.0 2.0 FiO2 100 100 100 24 04/03/25 13:35 Pulse 95 Resp 18 B/P (MAP) 113/54 Pulse Ox 97 O2 Delivery Nasal Cannula O2 Flow Rate 2.0 FiO2 24 Intake & Output (last 24hrs) 04/02/25 04/02/25 04/03/25 15:00 23:00 07:00 Intake Total 1200 ml 1300.0 ml Output Total 1400 ml 450 ml Balance -200 ml 850.0 ml LABS: Laboratory: Test 04/03/25 05:17 04/03/25 04:35 04/02/25 08:02 04/01/25 17:24 Range/Units Whole Blood Glucose 175 H 70-110 MG/DL White Blood Count 13.5 H 4.8-10.8 K/uL Red Blood Count 3.66 L 4.50-6.20 MIL/uL Hemoglobin 11.4 L 14.0-18.0 g/dL Hematocrit 31.4 L 42-54 % Mean Corpuscular Volume 85.8 79-99 fL Mean Corpuscular Hemoglobin 31.1 27.0-33.0 pg Mean Corpuscular Hemoglobin Concent 36.3 H 32.0-36.0 g/dL Red Cell Distribution Width 13.2 11.0-15.5 % Platelet Count 316 130-400 K/uL Mean Platelet Volume 10.6 H 7.5-10.5 fL Nucleated Red Blood Cells 0.0 0.0-0.19 % Red Blood Cell Morphology See comments Sodium Level 127 L 136-145 mmol/L Potassium Level 3.8 3.5-5.1 mmol/L Chloride Level 95 L 101-111 mmol/L Carbon Dioxide Level 27 21-32 mmol/L Blood Urea Nitrogen 13 7-18 mg/dL Creatinine 1.0 0.5-1.3 mg/dL Glomerular Filtration Rate Calc 86 >90 mL/min Random Glucose 188 H 70-105 mg/dL Total Calcium 7.3 L 8.5-10.1 mg/dL Magnesium Level 1.70 L 1.80-2.40 mg/dL Vancomycin Level Trough 10.9 10.0-20.0 UG/ML Bedside Glucose Comment Notified Nurse ASSESSMENT: Left foot diabetic ulcer with gas gangrene. Possible left foot osteomyelitis. Left lower extremity cellulitis. Sepsis. Leukocytosis. Hyponatremia. Poorly controlled Diabetes mellitus. Peripheral vascular disease. History of right foot osteomyelitis with right TMA. Medical noncompliance. PLAN: Continue vancomycin per pharmacy protocol. Continue Zosyn IV. Continue wound care. Continue pain management. Continue GI prophylaxis. Scheduled for Left wqlep-uwn-hkxw amputation for today This case was reviewed and discussed with my supervising physician and the above assessment and plan was formulated and agreed upon. ATTESTATION BY PHYSICIAN I have seen and examined the patient. I reviewed the documentation, medical decision making, and treatment plan as noted by the mid-level provider above. I agree with the findings and plan of care. SONNY HA MD, [facility] Apr 03, 2025 13:41
--- NOTE | 2025-04-03 13:45 | NUR ---
REPORT RECEIVED FROM HAYDER UGALDE. PATIENT ARRIVED TO THE UNIT. NO SIGNS OF DISTRESS AT THIS TIME. PATIENT IS EXPERIENCING PHANTOM PAIN AT THIS TIME. POST OP VITALS STARTED. FLUIDS CONNECTED TO PATIENT WELL OXYGEN. PATIENT VITALS ARE STABLE AT THIS TIME.
--- NOTE | 2025-04-03 16:05 | NUR ---
PASSED REPORT TO TORI MAHMOOD TO RESUME CARE OF THIS PATIENT .
--- NOTE | 2025-04-03 19:00 | PN ---
[facility] PROGRESS NOTE Date of Service: Apr 03, 2025 Time of Service: 18:53 SUBJECTIVE: Mr. Pires is a 60 year old male with past medical history of hypertension, hyperlipidemia, type 2 diabetes mellitus, appendectomy, right foot TMA was seen and examined today on 03/29/2025. Patient is a good historian of personal health Patient states that he came to the emergency department with a chief complaint of left foot pain. Onset was three days ago. Location is left foot plantar aspect. Duration is on and off. Character is described as sharp. There was no alleviating factors. Symptoms are aggravated with walking. Patient reports associated redness and discoloration to the left foot plantar aspect midfoot area. Today in the emergency department WBCs 21.5, left shift neutrophils 86 %, lactic acid 3.1, glucose 367 mg/dL, urinalysis unremarkable, flu negative, COVID negative. Additionally patient has a temperature of 101.5, heart rate 124, respirations 26 and identified source of infection being in the left foot patient met clinical sepsis criteria. Left foot x-ray shows soft tissue swelling and emphysema. 03/30/25: The patient is examined at the bedside. He is very upset that he is on 1:1 sitter. He said that he joked about the suicidal thoughts and wanting to take people with him. He was angry and demanded to have some food as he was kept NPO for the possibility of amputation surgery. He is given some jelly and 1 dose of morphine for his pain. Tele psych was done and cleared him of 1:[address] Lechuga the sailing master visited him this morning and suggested him the possibility of amputation of his Lft leg due to gas gangrene. He was transitioned to consistent carb diet and then General surgery and Infectious Disease consult was placed on him by Dr. Lechuga. On labs his magnesium is 1.4 and phosphorus is 1.7. He is on vancomycin1 g IV q.12h, Zosyn IV q.8h. Arterial ultrasound is pending. We plan to replace his magnesium and monitor his magnesium and phosphorus levels for tomorrow. 03/31/25: The patient is examined at the bedside. The patient agreed for amputation surgery yesterday but today morning he disagreed. He requested 2nd opinion from another sailing master and we recommended Dr. Robles. Dr. Acuna's consulted him and suggested for below-knee amputation as well to prevent further spread of inf ection and risk of losing the whole limb. The patient finally agreed and a consult with Dr. Gilman is put on for surgery. His WBC downtrended to 17.7 And sodium downtrended to 127. His arterial ultrasound showed: Mild intimal wall thickening in both the lower limb arteries. Both lower limb arteries demonstrate triphasic waveforms except the left anterior tibial, posterior tibial, and dorsalis pedis arteries which demonstrate monophasic waveforms. Calcified plaque in the left posterior tibial artery causing about 50% to 60% diameter stenosis. There is no significant flow limiting lesions in the remainder of the arteries. Left inguinal lymphadenopathy. Raised velocity in the left anterior tibial artery. In prior ultrasound both lower limb arteries demonstrate triphasic waveforms 04/01/2025: This is a 60-year-old male patient who was seen and examined at bedside in room 419. Patient is awake, alert and oriented x3. Patient continues with low-grade fevers, had a fever of 100.2 earlier this morning and current temperature is 98.2. WBC still high at 16.0. Patient is now agreeable for a left BKA as recommended , cardiac clearance for surgery was done by Anuel Flores, PA with Dr. Barnes was notified of clearance and waiting for further orders. Will continue on vancomycin per pharmacy protocol and Zosyn IV and follow up on the wound culture results. 04/02/2025: The patient is examined at the bedside. He reports no new complaints today. His labs show WBC downtrended to 14.1 from 16.0. His sodium is 126 and magnesium is 1.7. Got the cardiac clearance and waiting for surgery consult. We will continue on vancomycin per pharmacy protocol and Zosyn IV. 04/03/2025: Below-knee amputation is done by Dr. Barnes today morning. The procedure went without complications. Patient is placed on clear diet. Today labs show sodium of 127 and WBC downtrended to 13.5.Monitor a.m. labs. REVIEW OF SYSTEMS CONSTITUTIONAL: Denies fevers, chills, or night sweats. No unintentional weight loss reported. NEUROLOGICAL: Denies headache, amaurosis fugax, motor weakness, sensory deficit, vertigo/spinning sensation, gait abnormalities, or tremors. ENT: No hearing loss, otalgia, otorrhea, rhinitis, rhinorrhea, hoarseness, or sore throat. CARDIOVASCULAR: Denies any exertional angina, dyspnea on exertion, orthopnea, paroxysmal nocturnal dyspnea, palpitations, life-threatening arrhythmias, claudication. PULMONARY: Denies any shortness of breath, cough, phlegm/sputum, hemoptysis, pleuritic chest pain. SLEEP: Denies morning headaches, daytime somnolence or napping. Denies difficulty falling asleep, staying asleep, waking from sleep. Denies knowledge of snoring. GASTROINTESTINAL: Denies any type of dysphagia to either liquids or solids. De nies nausea, vomiting, pyrosis, early satiety, abdominal pain, diarrhea, constipation, or changes in stool consistency or caliber. Denies coffee-ground emesis, hematemesis, hematochezia, or melanotic stools. GENITOURINARY: Denies frequency, urgency, nocturia, hematuria or incontinence (Storage/Irritative symptoms.) Low urinary stream, straining to void, urinary intermittency or hesitancy, splitting of the voiding stream, terminal dribbling. ENDOCRINOLOGIC: Denies polyuria, polydipsia, polyphagia or heat/cold intolerances. HEMATOLOGIC: Denies thrombophilia/previous clots, or coagulopathy/bleeding disorders. ONCOLOGIC: Denies personal history of malignancy. PSYCHIATRIC: Denies any suicidal or homicidal ideation. Denies hallucinations. EXTREMITIES: Right foot TMA, swelling, below-knee amputation of left leg PHYSICAL EXAM GENERAL APPEARANCE: The patient is awake, alert, and oriented, in no acute cardiopulmonary distress. NEUROLOGICAL: Cranial nerves II-XII grossly intact. Motor is 5/5 in bilateral upper and lower extremities proximal to distal. No sensory deficits. HEENT: Face is symmetric. Pupils are equal and reactive. Extraocular movements are intact. NECK: Supple. No JVD. No thyromegaly. No submental, submandibular, pre- /postauricular, occipital or supraclavicular lymphadenopathy. CHEST: Normal chest expansion. No Telemetry. LUNGS: Absence of any rales, rhonchi or any wheezing. CARDIOVASCULAR: Regular. S1 and S2 normal. No appreciable rubs, murmurs or gallops. ABDOMEN: Soft, nontender, and nondistended. There is no rebound, voluntary guarding, or rigidity. : Deferred. No Menon. EXTREMITIES: Right foot TMA, below-knee amputation of left leg. Vital Signs (last 8hr) Date Time Temp Pulse Resp B/P (MAP) Pulse Ox O2 Delivery O2 Flow Rate FiO2 04/03/25 17:35 79 18 124/71 97 Room Air 04/03/25 16:35 78 18 121/64 97 Room Air 04/03/25 16:05 98.1 80 18 119/62 97 Room Air 04/03/25 15:35 79 18 122/67 98 Room Air 04/03/25 15:05 85 18 128/54 98 Nasal Cannula 04/03/25 14:50 85 18 106/64 98 Nasal Cannula 2.0 04/03/25 14:35 98.1 85 18 109/62 98 Nasal Cannula 2.0 04/03/25 14:20 98.1 89 18 103/62 96 Nasal Cannula 2.0 04/03/25 14:10 97.9 91 18 110/57 97 Nasal Cannula 2.0 04/03/25 14:05 93 20 112/55 97 Nasal Cannula 2.0 24 04/03/25 14:00 91 18 103/58 97 Nasal Cannula 2.0 24 04/03/25 13:55 92 20 107/59 97 Nasal Cannula 2.0 24 04/03/25 13:50 94 20 105/56 97 Nasal Cannula 2.0 24 04/03/25 13:45 93 18 108/55 97 Nasal Cannula 2.0 24 04/03/25 13:40 92 20 114/60 97 Nasal Cannula 2.0 04/03/25 13:35 95 18 113/54 97 Nasal Cannula 2.0 04/03/25 13:30 93 18 111/57 99 Nasal Cannula 2.0 24 04/03/25 13:25 95 20 121/67 100 Nonrebreathing Mask 10.0 100 04/03/25 13:20 94 20 134/75 100 Nonrebreathing Mask 10.0 100 04/03/25 13:15 92 15 132/82 100 Nonrebreathing Mask 10.0 100 04/03/25 13:10 97.5 88 13 115/70 100 Nonrebreathing Mask 10.0 100 LABS: Laboratory: Test 04/03/25 15:34 04/03/25 04:35 04/02/25 08:02 Range/Units Whole Blood Glucose 221 H 70-110 MG/DL White Blood Count 13.5 H 4.8-10.8 K/uL Red Blood Count 3.66 L 4.50-6.20 MIL/uL Hemoglobin 11.4 L 14.0-18.0 g/dL Hematocrit 31.4 L 42-54 % Mean Corpuscular Volume 85.8 79-99 fL Mean Corpuscular Hemoglobin 31.1 27.0-33.0 pg Mean Corpuscular Hemoglobin Concent 36.3 H 32.0-36.0 g/dL Red Cell Distribution Width 13.2 11.0-15.5 % Platelet Count 316 130-400 K/uL Mean Platelet Volume 10.6 H 7.5-10.5 fL Nucleated Red Blood Cells 0.0 0.0-0.19 % Red Blood Cell Morphology See comments Sodium Level 127 L 136-145 mmol/L Potassium Level 3.8 3.5-5.1 mmol/L Chloride Level 95 L 101-111 mmol/L Carbon Dioxide Level 27 21-32 mmol/L Blood Urea Nitrogen 13 7-18 mg/dL Creatinine 1.0 0.5-1.3 mg/dL Glomerular Filtration Rate Calc 86 >90 mL/min Random Glucose 188 H 70-105 mg/dL Total Calcium 7.3 L 8.5-10.1 mg/dL Magnesium Level 1.70 L 1.80-2.40 mg/dL Vancomycin Level Trough 10.9 10.0-20.0 UG/ML Current Medications Medications (Trade) Dose Ordered Sig/Barak Route PRN Reason Start Time Stop Time Status Last Admin Dose Admin Acetaminophen (TYLenol 325MG TAB) 650 mg Q6H PRN PO TEMPERATURE GREATER THAN 101.5 03/29/25 21:30 04/28/25 21:29 04/01/25 04:56 650 MG Atorvastatin Calcium (LIPItor 40MG) 40 mg HS PO 03/30/25 21:00 04/29/25 20:59 04/02/25 20:48 40 MG Famotidine (Pepcid 20mg Tab) 20 mg DAILY PO 03/30/25 09:00 04/29/25 08:59 04/02/25 08:56 20 MG Hydralazine HCl (APRESOLine 20MG INJ) 10 mg Q6H PRN IV For:SBP above 160;DBP above 90 03/29/25 21:30 04/28/25 21:29 Hydromorphone HCl (DiLAUDid 0.5MG INJ) 0.5 mg Q4H PRN IVP SEVERE PAIN (7-10) 04/02/25 08:30 04/07/25 08:29 04/03/25 05:42 0.5 MG Insulin Human Regular (humuLIN R 100 UNIT/ML 3ML) INSULIN SLIDING SCAL... ACHS SQ 03/30/25 07:30 04/29/25 07:29 04/02/25 20:49 6 UNIT Lactated Ringer's 1,000 ml @ 75 mls/hr [id number] IV 03/29/25 21:30 04/28/25 21:29 04/03/25 15:32 75 MLS/HR Magnesium Sulfate 50 ml @ 0 mls/hr PROTOCOL PRN IV hypomagnesemia 03/30/25 08:00 04/29/25 07:59 04/03/25 06:31 25 MLS/HR Morphine Sulfate (morPHINE 2MG SYG) 2 mg Q4H PRN IVP SEVERE PAIN (7-10) 03/29/25 21:30 04/02/25 08:17 DC 04/02/25 06:30 2 MG Ondansetron HCl (zoFRAN 4MG INJ) 4 mg Q6H PRN IV NAUSEA/VOMITING 03/29/25 21:30 04/28/25 21:29 Piperacillin Sod/ Tazobactam Sod (Zosyn 3.375gm+NS 50ml) 3.375 gm Q8H IV 03/30/25 04:00 04/01/25 12:13 DC 04/01/25 04:55 3.375 GM Piperacillin Sod/ Tazobactam Sod (Zosyn 3.375gm+NS 50ml) 3.375 gm Q8H IV 04/01/25 14:00 04/11/25 13:59 04/03/25 15:32 3.375 GM Potassium Chloride 100 ml @ 100 mls/hr AD PRN IV POTASSIUM PROTOCOL 04/01/25 08:00 05/01/25 07:59 Potassium Chloride (K-Dur/Klor-Con 20meq) 20 meq AD PRN PO POTASSIUM PROTOCOL 04/01/25 08:00 05/01/25 07:59 Potassium Chloride (KCl 10% Elixir 20meq/15ml) 20 meq AD PRN PO POTASSIUM PROTOCOL 04/01/25 08:00 05/01/25 07:59 04/01/25 14:45 20 MEQ Vancomycin HCl 250 ml @ 125 mls/hr Q12H IV 03/30/25 09:00 04/09/25 08:59 04/03/25 07:26 125 MLS/HR Vancomycin HCl (Vancomycin Protocol) 1 each AD IV 03/29/25 21:30 04/12/25 21:29 DIAGNOSTICS / RADIOLOGY: [ ] ASSESSMENT: Sepsis Leukocytosis Gas gangrene of left foot Left foot ganglion Diabetes mellitus type 2 Hypertension Hyperlipidemia Hyponatremia PLAN: Sepsis, leukocytosis, gas gangrene of left foot His WBC count downtrended to 14.1 from 16 today Empiric antibiotic therapy with Zosyn, vancomycin Blood culture showed no growth after 3 days Urine culture showed<1,00,000 CFU Foot x-ray showed: 1. Subcutaneous edema and extensive subcutaneous emphysema of the foot. Findings are concerning for infection resulting in gangrene. 2. 1.1 cm radiopaque foreign body versus calcification in plantar soft tissues; Arterial US Showed: IMPRESSION: Mild intimal wall thickening in both the lower limb arteries. Both lower limb arteries demonstrate triphasic waveforms except the left anterior tibial, posterior tibial, and dorsalis pedis arteries which demonstrate monophasic waveforms. Calcified plaque in the left posterior tibial artery causing about 50% to 60% diameter stenosis. There is no significant flow limiting lesions in the remainder of the arteries. Left inguinal lymphadenopathy. Raised velocity in the left anterior tibial artery. In prior ultrasound both lower limb arteries demonstrate triphasic waveforms General surgery consult is placed today Infectious disease consult is done today. Recommended Zosyn and vancomycin. Podiatry consult with done for 2nd opinion. He agrees with Dr. Lechuga and advised for below-knee amputation. Patient agreed . Below-knee amputation surgery done by Dr. Barnes today. Hyponatremia Sodium level is 126 Monitor BMP regularly. Replace sodium with 3% hypertonic saline if the patient develops symptoms or the sodium level drops below 120 Left foot ganglion: Podiatry service done by Dr. Lechuga and Patient is on consistent carb diet . We will be NPO after planned for surgery. IV fluid maintenance therapy lactated Ringer's at 75 mL/HR Monitor labs, CBC, BMP, magnesium, phosphorus Diabetes mellitus type 2: HB A1c is 8.5 Glucometer checks a.c. and HS 1800 ADA diet Humulin R sliding scale Hypertension, hyperlipidemia: [facility] for [facility]'s home medication info Consider resuming home medications once they are reconciled. At time of admission home medications reconciled. Hydralazine 10 mg IV every 4 hours for systolic blood pressure greater than 160 mmHg Atorvastatin 40 mg by mouth once daily Clear liquid diet GI prophylaxis, famotidine DVT prophylaxis, Marco's and SCDs ATTESTATION BY PHYSICIAN I have seen and examined the patient. I reviewed the documentation, medical decision making, and treatment plan as noted by the resident provider above. I agree with the findings and plan of care. Jose C Macias MD, BHAVANI MD Apr 03, 2025 19:00
[2025-04-04] VITALS (8 sets, daily range): BP systolic 123–142; BP diastolic 70–82; PULSE 77–84; RESP 18–20; TEMP 97.5–98; O2SAT 97–99
[2025-04-04 04:14] LABS: NUCLEATED RED BLOOD CELLS 0.0 % (0.0-0.19); PLATELET COUNT (AUTO) 371.0 K/uL (130-400); RED BLOOD CELL COUNT(AUTO) 3.52 MIL/uL (4.50-6.20); RED CELL DISTRIBUTION WIDTH 13.3 % (11.0-15.5); WHITE BLOOD COUNT (AUTO) 8.8 K/uL (4.8-10.8)
[2025-04-04 04:44] LABS: CREATININE 1.0 mg/dL (0.5-1.3); GLOMERULAR FILTR. RATE CALC 86.0 mL/min (>90); GLUCOSE,RANDOM 306.0 mg/dL (70-105); SODIUM SERUM 128.0 mmol/L (136-145); UREA NITROGEN, BLOOD 12.0 mg/dL (7-18)
--- NOTE | 2025-04-04 12:14 | PN ---
INFECTIOUS DISEASE PROGRESS NOTE Date of Service: Apr 04, 2025 SUBJECTIVE: This 60 year old male patient is being seen today at bedside. Awake, alert and oriented. No fever or chills. no nausea or vomiting. Reports pain at this time. Patient is in no distress. Patient is status post left bka. He remains on antibiotics. No acute event reported by nurse over night. We continue to follow patient closely. PHYSICAL EXAM EYES: Anicteric. Pupils equal and reactive. HENT: No oral thrush seen, moist Oral mucosa. NECK: Supple, no JVD or thyromegaly. LUNGS: Good air entry. No rales, no rhonchi. CARDIOVASCULAR: S1, S2 regular. No murmur heard. ABDOMEN: Soft, non tender, bowel sounds present, no organomegaly CENTRAL NERVOUS SYSTEM: Awake, alert, oriented x 3. No focal deficits. SKIN: No rashes, no swelling. Left foot diabetic ulcer with cellulitis s/p BKA LYMPHATICS: No peripheral lymphadenopathy. MUSCULOSKELETAL: No joint swelling, erythema or tenderness. EXTREMITIES: No cyanosis or clubbing. History of Right TMA. BACK: No deformity, no pressure ulcer. GENITOURINARY: No dysuria or hematuria. Vital Sign (Last 12 Hours) 04/04/25 04/04/25 04/04/25 04:00 08:30 09:15 Temp 98.1 97.5 Pulse 82 83 Resp 20 18 B/P (MAP) 142/82 125/78 Pulse Ox 98 99 99 O2 Delivery Room Air Room Air Room Air* O2 Flow Rate 0 FiO2 21 Intake & Output (last 24hrs) 04/03/25 04/03/25 04/04/25 15:00 23:00 07:00 Intake Total 250 ml Output Total 1200 ml 200 ml Balance -950 ml -200 ml LABS: Laboratory: Test 04/04/25 10:26 04/04/25 04:03 04/03/25 04:35 Range/Units Whole Blood Glucose 272 H 70-110 MG/DL White Blood Count 8.8 # 4.8-10.8 K/uL Red Blood Count 3.52 L 4.50-6.20 MIL/uL Hemoglobin 10.6 L 14.0-18.0 g/dL Hematocrit 31.6 L 42-54 % Mean Corpuscular Volume 89.8 79-99 fL Mean Corpuscular Hemoglobin 30.1 27.0-33.0 pg Mean Corpuscular Hemoglobin Concent 33.5 32.0-36.0 g/dL Red Cell Distribution Width 13.3 11.0-15.5 % Platelet Count 371 130-400 K/uL Mean Platelet Volume 10.4 7.5-10.5 fL Nucleated Red Blood Cells 0.0 0.0-0.19 % Sodium Level 128 L 136-145 mmol/L Potassium Level 3.7 3.5-5.1 mmol/L Chloride Level 96 L 101-111 mmol/L Carbon Dioxide Level 29 21-32 mmol/L Blood Urea Nitrogen 12 7-18 mg/dL Creatinine 1.0 0.5-1.3 mg/dL Glomerular Filtration Rate Calc 86 >90 mL/min Random Glucose 306 #H 70-105 mg/dL Total Calcium 7.0 L 8.5-10.1 mg/dL Magnesium Level 2.00 1.80-2.40 mg/dL Red Blood Cell Morphology See comments ASSESSMENT: 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 Possible left foot osteomyelitis. Left lower extremity cellulitis. Sepsis. Leukocytosis. Hyponatremia. Poorly controlled Diabetes mellitus. Peripheral vascular disease. History of right foot osteomyelitis with right TMA. Medical noncompliance. PLAN: Continue vancomycin per pharmacy protocol. Continue Zosyn IV. Continue wound care. Continue pain management. Continue GI prophylaxis. continue diabetic medication Continue pain medication This case was reviewed and discussed with my supervising physician and the above assessment and plan was formulated and agreed upon. NGHIA MADRIGAL Apr 04, 2025 12:14
--- NOTE | 2025-04-04 17:20 | PN ---
[facility] PROGRESS NOTE Date of Service: Apr 04, 2025 Time of Service: 17:12 SUBJECTIVE: Mr. Pires is a 60 year old male with past medical history of hypertension, hyperlipidemia, type 2 diabetes mellitus, appendectomy, right foot TMA was seen and examined today on 03/29/2025. Patient is a good historian of personal health Patient states that he came to the emergency department with a chief complaint of left foot pain. Onset was three days ago. Location is left foot plantar aspect. Duration is on and off. Character is described as sharp. There was no alleviating factors. Symptoms are aggravated with walking. Patient reports associated redness and discoloration to the left foot plantar aspect midfoot area. Today in the emergency department WBCs 21.5, left shift neutrophils 86 %, lactic acid 3.1, glucose 367 mg/dL, urinalysis unremarkable, flu negative, COVID negative. Additionally patient has a temperature of 101.5, heart rate 124, respirations 26 and identified source of infection being in the left foot patient met clinical sepsis criteria. Left foot x-ray shows soft tissue swelling and emphysema. 03/30/25: The patient is examined at the bedside. He is very upset that he is on 1:1 sitter. He said that he joked about the suicidal thoughts and wanting to take people with him. He was angry and demanded to have some food as he was kept NPO for the possibility of amputation surgery. He is given some jelly and 1 dose of morphine for his pain. Tele psych was done and cleared him of 1:[address] Lechuga the telegraph repeater technician visited him this morning and suggested him the possibility of amputation of his Lft leg due to gas gangrene. He was transitioned to consistent carb diet and then General surgery and Infectious Disease consult was placed on him by Dr. Lechuga. On labs his magnesium is 1.4 and phosphorus is 1.7. He is on vancomycin1 g IV q.12h, Zosyn IV q.8h. Arterial ultrasound is pending. We plan to replace his magnesium and monitor his magnesium and phosphorus levels for tomorrow. 03/31/25: The patient is examined at the bedside. The patient agreed for amputation surgery yesterday but today morning he disagreed. He requested 2nd opinion from another telegraph repeater technician and we recommended Dr. Robles. Dr. Acuna's consulted him and suggested for below-knee amputation as well to prevent further spread of inf ection and risk of losing the whole limb. The patient finally agreed and a consult with Dr. Gilman is put on for surgery. His WBC downtrended to 17.7 And sodium downtrended to 127. His arterial ultrasound showed: Mild intimal wall thickening in both the lower limb arteries. Both lower limb arteries demonstrate triphasic waveforms except the left anterior tibial, posterior tibial, and dorsalis pedis arteries which demonstrate monophasic waveforms. Calcified plaque in the left posterior tibial artery causing about 50% to 60% diameter stenosis. There is no significant flow limiting lesions in the remainder of the arteries. Left inguinal lymphadenopathy. Raised velocity in the left anterior tibial artery. In prior ultrasound both lower limb arteries demonstrate triphasic waveforms 04/01/2025: This is a 60-year-old male patient who was seen and examined at bedside in room 419. Patient is awake, alert and oriented x3. Patient continues with low-grade fevers, had a fever of 100.2 earlier this morning and current temperature is 98.2. WBC still high at 16.0. Patient is now agreeable for a left BKA as recommended , cardiac clearance for surgery was done by Anuel Flores PA with Dr. Barnes was notified of clearance and waiting for further orders. Will continue on vancomycin per pharmacy protocol and Zosyn IV and follow up on the wound culture results. 04/02/2025: The patient is examined at the bedside. He reports no new complaints today. His labs show WBC downtrended to 14.1 from 16.0. His sodium is 126 and magnesium is 1.7. Got the cardiac clearance and waiting for surgery consult. We will continue on vancomycin per pharmacy protocol and Zosyn IV. 04/03/2025: Below-knee amputation is done by Dr. Barnes today morning. The procedure went without complications. Patient is placed on clear diet. Today labs show sodium of 127 and WBC downtrended to 13.5.Monitor a.m. labs. 04/04/2025: This 60 year old male patient is being seen today at bedside. Awake, alert and oriented. No fever or chills. no nausea or vomiting. Reports pain at this time. Patient is in no distress. Patient is status post left bka. He remains on antibiotics. No acute event reported by nurse over night. We continue to follow patient closely.Patient is recommended to go to a prison care facility of his choice after discharge. He agreed on this plan. REVIEW OF SYSTEMS CONSTITUTIONAL: Denies fevers, chills, or night sweats. No unintentional weight loss reported. NEUROLOGICAL: Denies headache, amaurosis fugax, motor weakness, sensory deficit, vertigo/spinning sensation, gait abnormalities, or tremors. ENT: No hearing loss, otalgia, otorrhea, rhinitis, rhinorrhea, hoarseness, or sore throat. CARDIOVASCULAR: Denies any exertional angina, dyspnea on exertion, orthopnea, paroxysmal nocturnal dyspnea, palpitations, life-threatening arrhythmias, claudication. PULMONARY: Denies any shortness of breath, cough, phlegm/sputum, hemoptysis, pleuritic chest pain. SLEEP: Denies morning headaches, daytime somnolence or napping. Denies difficulty falling asleep, staying asleep, waking from sleep. Denies knowledge of snoring. GASTROINTESTINAL: Denies any type of dysphagia to either liquids or solids. Denies nausea, vomiting, pyrosis, early satiety, abdominal pain, diarrhea, constipation, or changes in stool consistency or caliber. Denies coffee-ground e mesis, hematemesis, hematochezia, or melanotic stools. GENITOURINARY: Denies frequency, urgency, nocturia, hematuria or incontinence (Storage/Irritative symptoms.) Low urinary stream, straining to void, urinary intermittency or hesitancy, splitting of the voiding stream, terminal dribbling. ENDOCRINOLOGIC: Denies polyuria, polydipsia, polyphagia or heat/cold intolerances. HEMATOLOGIC: Denies thrombophilia/previous clots, or coagulopathy/bleeding disorders. ONCOLOGIC: Denies personal history of malignancy. PSYCHIATRIC: Denies any suicidal or homicidal ideation. Denies hallucinations. EXTREMITIES: Right foot TMA, below-knee amputation of left leg PHYSICAL EXAM GENERAL APPEARANCE: The patient is awake, alert, and oriented, in no acute cardiopulmonary distress. NEUROLOGICAL: Cranial nerves II-XII grossly intact. Motor is 5/5 in bilateral upper and lower extremities proximal to distal. No sensory deficits. HEENT: Face is symmetric. Pupils are equal and reactive. Extraocular movements are intact. NECK: Supple. No JVD. No thyromegaly. No submental, submandibular, pre- /postauricular, occipital or supraclavicular lymphadenopathy. CHEST: Normal chest expansion. No Telemetry. LUNGS: Absence of any rales, rhonchi or any wheezing. CARDIOVASCULAR: Regular. S1 and S2 normal. No appreciable rubs, murmurs or gallops. ABDOMEN: Soft, nontender, and nondistended. There is no rebound, voluntary guarding, or rigidity. : Deferred. No [place]. EXTREMITIES: Right foot TMA, below-knee amputation of left leg. Vital Signs (last 8hr) Date Time Temp Pulse Resp B/P (MAP) Pulse Ox O2 Delivery O2 Flow Rate FiO2 04/04/25 16:00 97.9 82 18 126/73 98 Room Air 04/04/25 12:00 97.5 84 18 123/72 98 Room Air 04/04/25 12:00 97.5 84 18 123/72 98 Room Air 04/04/25 09:15 99 Room Air* 0 21 LABS: Laboratory: Test 04/04/25 16:46 04/04/25 04:03 04/03/25 04:35 Range/Units Whole Blood Glucose 244 H 70-110 MG/DL White Blood Count 8.8 # 4.8-10.8 K/uL Red Blood Count 3.52 L 4.50-6.20 MIL/uL Hemoglobin 10.6 L 14.0-18.0 g/dL Hematocrit 31.6 L 42-54 % Mean Corpuscular Volume 89.8 79-99 fL Mean Corpuscular Hemoglobin 30.1 27.0-33.0 pg Mean Corpuscular Hemoglobin Concent 33.5 32.0-36.0 g/dL Red Cell Distribution Width 13.3 11.0-15.5 % Platelet Count 371 130-400 K/uL Mean Platelet Volume 10.4 7.5-10.5 fL Nucleated Red Blood Cells 0.0 0.0-0.19 % Sodium Level 128 L 136-145 mmol/L Potassium Level 3.7 3.5-5.1 mmol/L Chloride Level 96 L 101-111 mmol/L Carbon Dioxide Level 29 21-32 mmol/L Blood Urea Nitrogen 12 7-18 mg/dL Creatinine 1.0 0.5-1.3 mg/dL Glomerular Filtration Rate Calc 86 >90 mL/min Random Glucose 306 #H 70-105 mg/dL Total Calcium 7.0 L 8.5-10.1 mg/dL Magnesium Level 2.00 1.80-2.40 mg/dL Red Blood Cell Morphology See comments Current Medications Medications (Trade) Dose Ordered Sig/Barak Route PRN Reason Start Time Stop Time Status Last Admin Dose Admin Acetaminophen (TYLenol 325MG TAB) 650 mg Q6H PRN PO TEMPERATURE GREATER THAN 101.5 03/29/25 21:30 04/28/25 21:29 04/01/25 04:56 650 MG Atorvastatin Calcium (LIPItor 40MG) 40 mg HS PO 03/30/25 21:00 04/29/25 20:59 04/03/25 20:27 40 MG Famotidine (Pepcid 20mg Tab) 20 mg DAILY PO 03/30/25 09:00 04/29/25 08:59 04/04/25 09:03 20 MG Hydralazine HCl (APRESOLine 20MG INJ) 10 mg Q6H PRN IV For:SBP above 160;DBP above 90 03/29/25 21:30 04/28/25 21:29 Hydromorphone HCl (DiLAUDid 0.5MG INJ) 0.5 mg Q4H PRN IVP SEVERE PAIN (7-10) 04/02/25 08:30 04/07/25 08:29 04/04/25 13:30 0.5 MG Insulin Human Regular (humuLIN R 100 UNIT/ML 3ML) INSULIN SLIDING SCAL... ACHS SQ 03/30/25 07:30 04/29/25 07:29 04/04/25 11:05 5 UNIT Lactated Ringer's 1,000 ml @ 75 mls/hr [id number] IV 03/29/25 21:30 04/28/25 21:29 04/04/25 11:02 75 MLS/HR Magnesium Sulfate 50 ml @ 0 mls/hr PROTOCOL PRN IV hypomagnesemia 03/30/25 08:00 04/29/25 07:59 04/03/25 06:31 25 MLS/HR Morphine Sulfate (morPHINE 2MG SYG) 2 mg Q4H PRN IVP SEVERE PAIN (7-10) 03/29/25 21:30 04/02/25 08:17 DC 04/02/25 06:30 2 MG Ondansetron HCl (zoFRAN 4MG INJ) 4 mg Q6H PRN IV NAUSEA/VOMITING 03/29/25 21:30 04/28/25 21:29 Piperacillin Sod/ Tazobactam Sod (Zosyn 3.375gm+NS 50ml) 3.375 gm Q8H IV 03/30/25 04:00 04/01/25 12:13 DC 04/01/25 04:55 3.375 GM Piperacillin Sod/ Tazobactam Sod (Zosyn 3.375gm+NS 50ml) 3.375 gm Q8H IV 04/01/25 14:00 04/11/25 13:59 04/04/25 13:30 3.375 GM Potassium Chloride 100 ml @ 100 mls/hr AD PRN IV POTASSIUM PROTOCOL 04/01/25 08:00 05/01/25 07:59 Potassium Chloride (K-Dur/Klor-Con 20meq) 20 meq AD PRN PO POTASSIUM PROTOCOL 04/01/25 08:00 05/01/25 07:59 Potassium Chloride (KCl 10% Elixir 20meq/15ml) 20 meq AD PRN PO POTASSIUM PROTOCOL 04/01/25 08:00 05/01/25 07:59 04/04/25 09:03 20 MEQ Vancomycin HCl 250 ml @ 125 mls/hr Q12H IV 03/30/25 09:00 04/09/25 08:59 04/04/25 09:03 125 MLS/HR Vancomycin HCl (Vancomycin Protocol) 1 each AD IV 03/29/25 21:30 04/12/25 21:29 DIAGNOSTICS / RADIOLOGY: [ ] ASSESSMENT: Sepsis, POA, RESOLVED Leukocytosis, POA, resolved Gas gangrene of left foot s/p BKA Diabetes mellitus type 2 Hypertension Hyperlipidemia Hyponatremia PLAN: gas gangrene of left foot S/P BKA His WBC count downtrended to 8.8 today Empiric antibiotic therapy with Zosyn, vancomycin Blood culture showed no growth after 3 days Urine culture showed<1,00,000 CFU Foot x-ray showed: 1. Subcutaneous edema and extensive subcutaneous emphysema of the foot. Findings are concerning for infection resulting in gangrene. 2. 1.1 cm radiopaque foreign body versus calcification in plantar soft tissues; Arterial US Showed: IMPRESSION: Mild intimal wall thickening in both the lower limb arteries. Both lower limb arteries demonstrate triphasic waveforms except the left anterior tibial, posterior tibial, and dorsalis pedis arteries which demonstrate monophasic waveforms. Calcified plaque in the left posterior tibial artery causing about 50% to 60% diameter stenosis. There is no significant flow limiting lesions in the remainder of the arteries. Left inguinal lymphadenopathy. Raised velocity in the left anterior tibial artery. In prior ultrasound both lower limb arteries demonstrate triphasic waveforms General surgery consult is placed today Infectious disease consult is done today. Recommended Zosyn and vancomycin. Podiatry consult with done for 2nd opinion. He agrees with Dr. Lechuga and advised for below-knee amputation. Patient agreed . Below-knee amputation surgery done by Dr. Barnes today. Hyponatremia Sodium level is 126 Monitor BMP regularly. Replace sodium with 3% hypertonic saline if the patient develops symptoms or the sodium level drops below 120 Left foot ganglion: Podiatry service done by Dr. Lechuga and Patient is on consistent carb diet . We will be NPO after planned for surgery. IV fluid maintenance therapy lactated Ringer's at 75 mL/HR Monitor labs, CBC, BMP, magnesium, phosphorus Diabetes mellitus type 2: HB A1c is 8.5 Glucometer checks a.c. and HS 1800 ADA diet Humulin R sliding scale Hypertension, hyperlipidemia: Contact [facility] for patient's home medication info Consider resuming home medications once they are reconciled. At time of admission home medications reconciled. Hydralazine 10 mg IV every 4 hours for systolic blood pressure greater than 160 mmHg Atorvastatin 40 mg by mouth once daily Full liquid diet GI prophylaxis, famotidine DVT prophylaxis, Marco's and SCDs ATTESTATION BY PHYSICIAN I have seen and examined the patient. I reviewed the documentation, medical decision making, and treatment plan as noted by the resident provider above. I agree with the findings and plan of care. Jose C Macias MD, BHAVANI MD Apr 04, 2025 17:20
[2025-04-04 20:07] LABS: INR 1.19 (0.85-1.15)
[2025-04-05 00:03] VITALS: BP 142/77; PULSE 83; RESP 19; TEMP 97.8
[2025-04-05 04:02] VITALS: BP 157/93; PULSE 80; RESP 18; TEMP 97.9
[2025-04-05 04:42] LABS: IMMATURE GRANULOCYTE ABSOLUTE 0.06 K/uL (0-1); NUCLEATED RED BLOOD CELLS 0.0 % (0.0-0.19); PLATELET COUNT (AUTO) 375 K/uL (130-400); RED BLOOD CELL COUNT(AUTO) 3.56 MIL/uL (4.50-6.20); RED CELL DISTRIBUTION WIDTH 13.2 % (11.0-15.5); WHITE BLOOD COUNT (AUTO) 8.0 K/uL (4.8-10.8)
[2025-04-05 04:59] LABS: ASPARTATE AMINOTRANSFERASE 44.0 U/L (10-37); CREATININE 0.9 mg/dL (0.5-1.3); GLOMERULAR FILTR. RATE CALC 97.0 mL/min (>90); GLUCOSE,RANDOM 276.0 mg/dL (70-105); SODIUM SERUM 131.0 mmol/L (136-145); TOTAL PROTEIN, SERUM 6.1 g/dL (6.0-8.3); UREA NITROGEN, BLOOD 9.0 mg/dL (7-18)
[2025-04-05 07:30] VITALS: O2SAT 95
[2025-04-05 08:00] VITALS: BP 151/87; PULSE 80; RESP 18; TEMP 97.8
--- NOTE | 2025-04-05 09:36 | PN ---
This is a 60-year-old male postop day two for left BKA by Dr. Francisco Barnes Interval history: This 60-year-old male seen in his room resting Bandages removed for left BKA with good this approximation to staple line noted No signs of ischemia or infection noted Patient's pain needing better management for phantom discomfort Patient otherwise stable Physical exam General: Awake alert and oriented Heart: Regular rate and rhythm} Lungs: Clear to auscultation no distress Abdomen: [Soft, nontender, nondistended Assessment : This is a 60-year-old male postop day two for left BKA by Dr. Francisco Barnes Plan: Patient will be started on gabapentin to assist with phantom pains Continue with current medical management From surgical standpoint no further surgical intervention planned Once patient is cleared medically patient is cleared for discharge from surgical team Follow up in two weeks for wound evaluation Patient informed on the importance of avoiding any falls on stump to avoid any dehiscence Doctor Barnes to be updated in patient's status and surgical team will follow patient closely Vitals/Labs Vital Signs Date Time Temp Pulse Resp B/P (MAP) Pulse Ox O2 Delivery O2 Flow Rate FiO2 04/05/25 08:00 97.9 80 18 151/87 95 Room Air 04/04/25 20:00 0 21 Laboratory Tests 04/05/25 04:34 Medications Current Medications Sodium Chloride 2,667 ml @ 889 mls/hr ONCE ONCE IV Last administered on 03/29/25at 19:28; Start 03/29/25 at 19:30; Stop 03/29/25 at 22:29; Status DC Acetaminophen 1,000 mg ONCE ONCE PO Last administered on 03/29/25at 19:29; Start 03/29/25 at 19:30; Stop 03/29/25 at 19:31; Status DC Morphine Sulfate 4 mg ONCE ONCE IVP Last administered on 03/29/25at 19:39; Start 03/29/25 at 19:30; Stop 03/29/25 at 19:31; Status DC Piperacillin Sod/ Tazobactam Sod 3.375 gm ONCE ONCE IV Last administered on 03/29/25at 20:17; Start 03/29/25 at 20:00; Stop 03/29/25 at 20:01; Status DC Vancomycin HCl 1 gm ONCE ONCE IV Last administered on 03/29/25at 21:37; Start 03/29/25 at 20:00; Stop 03/29/25 at 20:01; Status DC Insulin Human Regular INSULIN SLIDING SCAL... ACHS SQ Last administered on 04/05/25at 06:49; Start 03/30/25 at 07:30; Stop 04/29/25 at 07:29 Vancomycin HCl 1 each AD IV; Start 03/29/25 at 21:30; Stop 04/12/25 at 21:29 Piperacillin Sod/ Tazobactam Sod 3.375 gm Q8H IV Last administered on 04/01/25at 04:55; Start 03/30/25 at 04:00; Stop 04/01/25 at 12:13; Status DC Acetaminophen 650 mg Q6H PRN PO Last administered on 04/01/25at 04:56; Start 03/29/25 at 21:30; Stop 04/28/25 at 21:29 Famotidine 20 mg DAILY PO Last administered on 04/05/25at 08:55; Start 03/30/25 at 09:00; Stop 04/29/25 at 08:59 Hydralazine HCl 10 mg Q6H PRN IV; Start 03/29/25 at 21:30; Stop 04/28/25 at 21:29 Lactated Ringer's 1,000 ml @ 75 mls/hr [id number] IV Last administered on 04/05/25at 01:12; Start 03/29/25 at 21:30; Stop 04/28/25 at 21:29 Morphine Sulfate 2 mg Q4H PRN IVP Last administered on 04/02/25at 06:30; Start 03/29/25 at 21:30; Stop 04/02/25 at 08:17; Status DC Ondansetron HCl 4 mg Q6H PRN IV; Start 03/29/25 at 21:30; Stop 04/28/25 at 21:29 Atorvastatin Calcium 40 mg HS PO Last administered on 04/04/25at 20:39; Start 03/30/25 at 21:00; Stop 04/29/25 at 20:59 Vancomycin HCl 250 ml @ 125 mls/hr Q12H IV Last administered on 04/05/25at 08:55; Start 03/30/25 at 09:00; Stop 04/09/25 at 08:59 Sodium Chloride 500 ml @ 0 mls/hr Q0M ONCE IV Last administered on 03/30/25at 00:39; Start 03/30/25 at 00:30; Stop 03/30/25 at 00:35; Status DC Morphine Sulfate 2 mg ONCE ONCE IVP Last administered on 03/30/25at 04:59; Start 03/30/25 at 05:00; Stop 03/30/25 at 05:01; Status DC Magnesium Sulfate 50 ml @ 0 mls/hr PROTOCOL PRN IV Last administered on 04/03/25at 06:31; Start 03/30/25 at 08:00; Stop 04/29/25 at 07:59 Morphine Sulfate 2 mg ONCE ONCE IVP Last administered on 03/31/25at 22:49; Start 03/31/25 at 23:00; Stop 03/31/25 at 23:01; Status DC Potassium Chloride 100 ml @ 100 mls/hr AD PRN IV; Start 04/01/25 at 08:00; Stop 05/01/25 at 07:59 Potassium Chloride 20 meq AD PRN PO Last administered on 04/04/25at 17:23; Start 04/01/25 at 08:00; Stop 05/01/25 at 07:59 Potassium Chloride 20 meq AD PRN PO; Start 04/01/25 at 08:00; Stop 05/01/25 at 07:59 Piperacillin Sod/ Tazobactam Sod 3.375 gm Q8H IV Last administered on 04/05/25at 05:06; Start 04/01/25 at 14:00; Stop 04/11/25 at 13:59 Hydromorphone HCl 0.5 mg Q4H PRN IVP Last administered on 04/05/25at 06:47; Start 04/02/25 at 08:30; Stop 04/07/25 at 08:29 Lidocaine HCl 100 mg STK-MED ONCE .ROUTE; Start 04/03/25 at 10:41; Stop 04/03/25 at 10:42; Status DC Midazolam HCl 2 mg STK-MED ONCE .ROUTE; Start 04/03/25 at 10:42; Stop 04/03/25 at 10:42; Status DC Propofol 200 mg STK-MED ONCE IV; Start 04/03/25 at 10:42; Stop 04/03/25 at 10:42; Status DC Fentanyl Citrate 100 mcg STK-MED ONCE .ROUTE; Start 04/03/25 at 10:42; Stop 04/03/25 at 10:42; Status DC Ropivacaine 150 mg STK-MED ONCE .ROUTE; Start 04/03/25 at 10:52; Stop 04/03/25 at 10:53; Status DC Phenylephrine HCl 10 mg STK-MED ONCE IV; Start 04/03/25 at 11:07; Stop 04/03/25 at 11:07; Status DC Fentanyl Citrate 100 mcg STK-MED ONCE .ROUTE; Start 04/03/25 at 11:11; Stop 04/03/25 at 11:12; Status DC Ketamine HCl 50 mg STK-MED ONCE .ROUTE; Start 04/03/25 at 11:13; Stop 04/03/25 at 11:14; Status DC Fentanyl Citrate 100 mcg STK-MED ONCE .ROUTE; Start 04/03/25 at 11:58; Stop 04/03/25 at 11:58; Status DC Albumin Human 250 ml @ As Directed STK-MED ONCE IV; Start 04/03/25 at 11:59; Stop 04/03/25 at 11:59; Status DC Fentanyl Citrate 100 mcg STK-MED ONCE .ROUTE Last administered on 04/03/25at 13:49; Start 04/03/25 at 13:43; Stop 04/03/25 at 13:46; Status DC ERICH CERVANTES Jr. Apr 05, 2025 09:36
[2025-04-05 12:00] VITALS: BP 125/73; PULSE 79; RESP 18; TEMP 97.6
[2025-04-05 16:00] VITALS: BP 142/80; PULSE 82; RESP 18; TEMP 98.4
--- NOTE | 2025-04-05 16:54 | NUR ---
DISCHARGE GAVE REPORT TO HAYDER MAHMOOD AT 1546 FROM [facility]. WELL FAXED OVER MED REC. I ASKED NURSE IF PICTURES WERE NEEDED OF WOUND SITE DUE TO NURSING COMMUNICATIONS, BUT SHE STATED SHE WILL DO THEM SINCE SHE HAS TO TAKE THEM WELL. FAXED OVER WOUND DRESSING CHANGE PER ERICH SESAY ORDERS. PIV DC'D TRANSPORTER GIVEN FOLDER WITH PRESCRIPTION TO GIVE TO NURSE PATIENT INFORMED TO SEE PCP IN 1 WEEK PATIENT INFORMED TO SEE DR. RIBERA IN 2 WEEKS ALL QUESTIONS ANSWERED PRIOR TO DISCHARGE
--- NOTE | 2025-04-05 16:56 | DS ---
Discharge Summary Hospital Course Summary: Patient Information: *Name: Negra Pires JR *Date of : 1965 *Admission Date: 03/29/2025 *Discharge Date: 04/05/2025 Diagnosis: Sepsis/Gas gangrene of left foot Course in Hospital: The patient is a 60-year-old male with past medical history of hypertension, hyperlipidemia, type 2 diabetes mellitus, appendectomy, and right foot TMA. Patient presented to the emergency department with chief complaint of left foot pain that started 3 days ago. The pain was sharp, intermittent and was aggravated by walking. On arrival the patient's WBC were 21.5, lactic acid 3.1, glucose 367. The patient has a temperature of 101.7 F, heart rate of 124, respirations 26. The patient was admitted under the diagnosis of sepsis. Chest x-ray was nonsignificant for any cardiopulmonary pathology. Foot x-ray showed subcutaneous edema and extensive subcutaneous emphysema of the foot, which was concerning for gangrene. Arterial Doppler ultrasound of the lower limbs demonstrated triphasic waveforms except the left anterior tibial, posterior tibial, and dorsalis pedis arteries which demonstrate monophasic waveforms. The patient initially had a one-to-one sitter, which made the patient angry because according to him he just joked about the suicidal thoughts and wanting to take people. Due to this, tele psych consultation was done that cleared him off one-to-one sitter. Podiatry was consulted and they suggested possibility of amputation of the left leg due to gas gangrene. After initially agreeing for the amputation, the patient refused amputation and requested for a 2nd opinion from another director of corporate real estate. Therefore another director of corporate real estate was consulted and he also suggested for below-knee amputation to prevent further spread of infection and risk of losing the whole limb. After this, the patient finally agreed for amputation and a consult was placed with General surgery. General surgery requested for cardiac clearance for perioperative risk assessment before proceeding with the surgery. As per Cardiology, the patient was a low risk candidate for intermediate, noncardiac procedure. His arterial duplex showed monophasic, normal flow until the trifurcation vessels, so arterial flow appeared adequate for healing of below-knee amputation. The below-knee amputation was performed on 04/03. During the course of admission, the patient was continued on vancomycin and Zosyn. The patient WBC showed a downward trend and was 8.0 the time of discharge. The patient was discharged to [facility]. Procedures performed: CBC, CMP, CXR, Blood cultures, foot x-ray, arterial Doppler ultrasound, urinalysis, coagulation profile, urinalysis, procalcitonin, troponin, creatinine kinase, lactic acid, HbA1c Discharged to: [facility] facility Condition on Discharge: Stable Development And Planning Engineer(s): Psychiatry Recommendations: -Patient is not currently suicidal, homicidal or psychotic and he does not require inpatient psychiatric admission at this time. He is able to contract for safety of self and others. He does not endorse any mental health symptoms. -No acute safety concerns at this time. Patient does not meet criteria for 1:1 obervation. -Patient not interested in any psychotropic medications -Patient is dealing with possible amputation and he is very upset aobut this so he may benefit from referrals to outpatient therapy to deal with this stressful situation -Psychiatry signing off. Podiatry; Dr. Lechuga PLAN: I reviewed the findings with the patient radiographically and clinically. I explained to the patient that he has gas gangrene, necrotizing fasciitis, deep plantar space infection. He is septic. He has flesh-eating bacteria that is encompassing all the tissue of his left foot and there is no opportunity for any foot salvage given the severity of the infection. The patient states he wants a second opinion and is refusing amputation surgery. I feel the patient will need minimal a [id number] amputation on the left and initially maybe a guillotine-type amputation. I will consult Orthopedics and consult Infectious Disease on this patient. We will continue with the IV vancomycin and the IV Zosyn. Infectious disease PLAN: * Continue wound care. * Continue pain management. * Continue antihypertensive. * Continue antidiabetic. * Continue nutritional support. * Monitor electrolytes. * The patient will benefit from left below-knee amputation. Podiatry; Dr Robles PLAN: I agree with Dr. Lechuga's recommendation at this point. Due to the extent of the gas gangrene and the septic picture, I also made recommendations at this point is for a iilry-ota-fayc amputation. Patient was educated on the problem and the risks and benefits of the amputation. Unfortunately at this moment any local surgery we will fail to heal and will put the patient a risk of higher limb loss or even . Apparently the patient agreed to the amputation at this point we will recall Dr. Kalina corbin for follow up evaluation. General surgery Plan: At this point in time patient continues to refuse any surgical intervention Patient explained at length concerns and risks of continuing without surgery and he understands Patient has requested 2nd opinion for Podiatry at this time we will await recommendations Doctor Molly to be updated in patient's status Patient to continue with the IV antibiotics and continued wound care Cardiology Perioperative risk assessment The patient is planning to undergo a left BKA for necrotizing fasciitis of the LLE He denied anginal equivalents, troponin was negative x1, an EKG on admission did not demonstrate acute ischemia. The patient is a low risk candidate for an intermediate, noncardiac procedure. His arterial duplex shows multiphasic, normal flow until the trifurcation vessels, so arterial flow appears adequate for healing of BKA Avoid fluid overload as he does have a history of grade 1 diastolic dysfunction Given his comorbidities, I recommend CAD workup, however this can be deferred to outpatient setting. Procedure(s): PATIENT: NEGRA PIRES JR MR#: [id number] : 1965 SEX: M AGE: 60 LOCATION: [facility] ORDER 09 STATUS: REG REPORT#: [id number] SERVICE 07 REASON: Sepsis ORDERING PHYSICIAN: SEAN JEFFERY MD PROCEDURE: CXR1VW - CHEST 1VW EXAM: CR Chest, 1 View. CLINICAL HISTORY: Sepsis COMPARISON: Radiograph dated December 25, 2017. FINDINGS: LUNGS: The lungs show no infiltrate or other acute finding. PLEURAL SPACES: No evidence of pleural effusion or pneumothorax. MEDIASTINUM: The cardiomediastinal silhouette is within normal limits. BONES: No acute osseous abnormality. IMPRESSION: No acute cardiopulmonary pathology is evident. /Leonard DICTATED BY: MARA BADILLO Jr., MD DATE: 03/29/252136 ELECTRONICALLY SIGNED BY: MARA BADILLO Jr., MD DATE: 03/29/252136 PATIENT: NEGRA PIRES JR MR#: [id number] : 1965 SEX: M AGE: 60 LOCATION: ED ORDER 22 STATUS: REG ER REPORT#: [id number] SERVICE 20 REASON: necrotic areas ORDERING PHYSICIAN: SEAN JEFFERY MD PROCEDURE: FT 3VW LT - FOOT COMP 3+VWS LT EXAM: CR right foot, 3 View. CLINICAL HISTORY: necrotic areas COMPARISON: None provided. FINDINGS: BONES: No acute fracture or aggressive appearing osseous lesion. JOINTS: The joint spaces appear within normal limits. No dislocation. SOFT TISSUES: Subcutaneous edema and extensive subcutaneous emphysema throughout the foot. There is a 1.1 cm radiopacity projecting of the plantar soft tissues of the mid to hindfoot (just beneath the skin). It is unclear whether this reflects a foreign body, clinical correlation is advised. IMPRESSION: 1. Subcutaneous edema and extensive subcutaneous emphysema of the foot. Findings are concerning for infection resulting in gangrene. 2. 1.1 cm radiopaque foreign body versus calcification in plantar soft tissues; clinical correlation advised. /Leonard DICTATED BY: MARA BADILLO Jr., MD DATE: 03/29/252139 ELECTRONICALLY SIGNED BY: MARA BADILLO Jr., MD DATE: 03/29/252139 PATIENT: NEGRA PIRES JR MR#: [id number] : 1965 SEX: M AGE: 60 LOCATION: [facility] ORDER 09 STATUS: ADM IN REPORT#: [id number] SERVICE 01 REASON: left foot wound ORDERING PHYSICIAN: SHANTELLE AMBROCIO PROCEDURE: ART B LE - US ARTERIAL BILAT LOW EXT DUPL EXAMINATION: DUPLEX ULTRASOUND EXAMINATION OF THE BILATERAL LOWER EXTREMITY ARTERIES. CLINICAL HISTORY: Left foot wound. COMPARISON: Bilateral lower extremity arterial doppler dated 08/05/2021. FINDINGS: Peak systolic velocities within the right lower arteries are as follows: Common femoral artery: 80 cm/s. Superficial femoral artery: 46 cm/s at proximal, 39 cm/s at mid, and 41 cm/s at distal segments. Popliteal artery: 29 cm/s at proximal and 26 cm/s at distal segments. Posterior tibial artery: 48 cm/s. Anterior tibial artery: 20 cm/s. Dorsalis pedis artery: 28 cm/s. The right lower limb arteries demonstrate triphasic waveforms in all arteries. Peak systolic velocities within the left lower arteries are as follows: Common femoral artery: 51 cm/s. Superficial femoral artery: 72 cm/s at proximal, 58 cm/s at mid, and 28 cm/s at distal segments. Popliteal artery: 108 cm/s at proximal and 66 cm/s at distal segments. Posterior tibial artery: 130 cm/s. Anterior tibial artery: 222 cm/s. Dorsalis pedis artery: 31 cm/s. The left lower limb arteries demonstrate triphasic waveforms in all arteries except the anterior tibial, posterior tibial, and dorsalis pedis arteries which demonstrate monophasic waveforms. There is intimal wall thickening in both the lower limb arteries. There is a calcified plaque in the left posterior tibial artery causing about 50% to 60% diameter stenosis. There is an enlarged lymph node that measures 3.7 x 1.1 cm in the left inguinal region. Hilar echoes are maintained. No increased vascularity. There is raised velocity in the left anterior tibial artery. IMPRESSION: Mild intimal wall thickening in both the lower limb arteries. Both lower limb arteries demonstrate triphasic waveforms except the left anterior tibial, posterior tibial, and dorsalis pedis arteries which demonstrate monophasic waveforms. Calcified plaque in the left posterior tibial artery causing about 50% to 60% diameter stenosis. There is no significant flow limiting lesions in the remainder of the arteries. Left inguinal lymphadenopathy. Raised velocity in the left anterior tibial artery. In prior ultrasound both lower limb arteries demonstrate triphasic waveforms /Leonard DICTATED BY: EAMON OJEDA MD DATE: 03/31/25658 ELECTRONICALLY SIGNED BY: EAMON OJEDA MD DATE: 03/31/25658 Operative Note: DATE OF PROCEDURE: 04/03/25 SURGEON: BRODERICK RIBERA DO PIE MAKER: None ANESTHESIA: General ANESTHESIOLOGIST/LAND DEGRADATION ANALYST: JED Caruso PREOPERATIVE DIAGNOSIS: Left foot gangrene POSTOPERATIVE DIAGNOSIS: Left foot gangrene SYNOPSIS: None PROCEDURE: Left yashm-[id number]-[id number] amputation ESTIMATED BLOOD LOSS: 200 cc INDICATIONS: This is a 60-year-old male that presented to the emergency dep artment with acute on chronic worsening of the left foot swelling black discoloration. Patient was seen by Podiatry who recommended below-knee amputation. The patient did not want the foot to come off so he asked for another opinion. The 2nd director of corporate real estate saw the patient and also recommended below- knee amputation. I recommended below-knee amputation. I discussed the procedure with the patient. All questions were answered. The patient expressed understanding and agreement with the plan. DESCRIPTION OF PROCEDURE: The patient was placed on the operating table in the supine position. After adequate sedation the patient was intubated by anesthesia. Perioperative antibiotics were given. The patient's left lower extremity was prepped and draped in the usual sterile fashion. A time-out was performed. I traced the anterior and posterior flaps starting approximately 15 cm distal to the tibial tuberosity. The anterior and posterior skin incisions were made circumferentially. And the subcutaneous tissue and muscle was dissected using electrocautery to encircle the bone. The tibia was transected about 2 cm proximal to the anterior flap line. The fibula was transected 2 cm proximal to the tibial transection margin. The the vascular structures were suture ligated and the posterior flap was divided using amputation knife. The nerves were cut under tension to retract. All edges of the bone were rounded using the bone saw and a bone rasp. A bubble was made on the anterior portion of the tibia. The wound was copiously irrigated with sterile saline. The fascia was approximated in two layers using sutures of 0 Vicryl. The dermal layer was approximated using interrupted sutures of 3-0 Vicryl. The skin was approximated using skin mariann. The wound was dressed with Xeroform, gauze, ABD, Kerlix, and Osmani wrap. The patient tolerated the procedure well. All instrument, needle, and sponge counts were correct at the end of the procedure. The patient was aroused from sedation, extubated, and transferred to the post anesthesia care unit in good condition. Assessment/Plan: ASSESSMENT: Sepsis, POA, RESOLVED Leukocytosis, POA, resolved Gas gangrene of left foot s/p BKA Diabetes mellitus type 2 Hypertension Hyperlipidemia Hyponatremia PLAN: gas gangrene of left foot S/P BKA His WBC count downtrended to 8.8 today Empiric antibiotic therapy with Zosyn, vancomycin Blood culture showed no growth after 3 days Urine culture showed<1,00,000 CFU Foot x-ray showed: 1. Subcutaneous edema and extensive subcutaneous emphysema of the foot. Findings are concerning for infection resulting in gangrene. 2. 1.1 cm radiopaque foreign body versus calcification in plantar soft tissues; Arterial US Showed: IMPRESSION: Mild intimal wall thickening in both the lower limb arteries. Both lower limb arteries demonstrate triphasic waveforms except the left anterior tibial, posterior tibial, and dorsalis pedis arteries which demonstrate monophasic waveforms. Calcified plaque in the left posterior tibial artery causing about 50% to 60% diameter stenosis. There is no significant flow limiting lesions in the remainder of the arteries. Left inguinal lymphadenopathy. Raised velocity in the left anterior tibial artery. In prior ultrasound both lower limb arteries demonstrate triphasic waveforms General surgery consult is placed today Infectious disease consult is done today. Recommended Zosyn and vancomycin. Podiatry consult with done for 2nd opinion. He agrees with Dr. Lechuga and advised for below-knee amputation. Patient agreed . Below-knee amputation surgery done by Dr. Ribera today. Hyponatremia Sodium level is 126 Monitor BMP regularly. Replace sodium with 3% hypertonic saline if the patient develops symptoms or the sodium level drops below 120 Left foot ganglion: Podiatry service done by Dr. Lechuga and Patient is on consistent carb diet . We will be NPO after planned for surgery. IV fluid maintenance therapy lactated Ringer's at 75 mL/HR Monitor labs, CBC, BMP, magnesium, phosphorus Diabetes mellitus type 2: HB A1c is 8.5 Glucometer checks a.c. and HS 1800 ADA diet Humulin R sliding scale Hypertension, hyperlipidemia: Contact [facility] for patient's home medication info Consider resuming home medications once they are reconciled. At time of admission home medications reconciled. Hydralazine 10 mg IV every 4 hours for systolic blood pressure greater than 160 mmHg Atorvastatin 40 mg by mouth once daily Full liquid diet GI prophylaxis, famotidine DVT prophylaxis, Marco's and SCDs Discharge Instructions: *Follow up with your primary care physician in 2 - 3 days after discharge. *Follow up with general surgery in 2 weeks *Continue all medications as prescribed. Do not discontinue or change dosages without consulting your PCP. *Gradually resume normal activities as tolerated. *Continue a balanced diet . *Seek immediate medical attention if you experience chest pain, SOB or severe headache. Home Medications: Active Scripts Gabapentin (Neurontin) 300 Mg Capsule, 600 MG PO BID for 15 Days, #60 CAP Prov:CAROLYN WHITTINGTON Jr., MD 08/10/21 Reported Medications Atorvastatin Calcium (Atorvastatin Calcium) 10 Mg Tablet, 1 TAB PO HS 04/01/25 Lisinopril (Lisinopril) 2.5 Mg Tablet, 1 TAB PO DAILY 04/01/25 Insulin Glargine,Hum.rec.anlog (Toujeo Solostar) 300 Unit/Ml (1.5 Ml) Insuln.pen, 40 UNITS SQ DAILY 04/01/25 Metformin HCl (Metformin HCl ER) 1,000 Mg Tab.er.24, 1000 MG PO BIDMEALS 08/10/16 Discontinued Reported Medications Empagliflozin (Jardiance) 25 Mg Tablet, 25 MG PO DAILY, TAB 08/06/21 Liraglutide (Victoza 2-Lorenzo) 0.6 Mg/0.1 Ml Pen.injctr, 1.8 MG SQ DAILY 12/10/17 Meclizine HCl (Meclizine HCl) 25 Mg Tab.chew, 25 MG PO BID, TAB.CHEW 12/10/17 Glimepiride (Glimepiride) 4 Mg Tablet, 4 MG PO HS, TAB 12/10/17 Pioglitazone HCl (Pioglitazone HCl) 30 Mg Tablet, 45 MG PO DAILY, TAB 08/10/16 Aspirin (Aspir 81) 81 Mg Tablet.dr, 81 MG PO DAILY, TAB 08/10/16 Discontinued Scripts Methylprednisolone (Medrol) 4 Mg Tab.ds.pk, 4 MG PO AD for 6 Days, #1 PACK Prov:SALOMON DEL CASTILLO MD 08/18/23 [place], Insulin Disposable (Easy Comfort Pen [place]) 1 Each Dis.needle, EACH MC HS for insulin administration, #100 1 Refill Prov:CAROLYN WHITTINGTON Jr., MD 08/10/21 Insulin Glargine,Hum.rec.anlog (Lantus) 100 Units/Ml Inj, 25 UNITS SQ HS for 30 Days, #1 PACK 3 Refills Inject 25 units subcutaneously at bedtime. Prov:CAROLYN WHITTINGTON Jr., MD 08/10/21 Lisinopril (Lisinopril) 10 Mg Tablet, 10 MG PO BID for 30 Days, #60 TAB Prov:CAROLYN WHITTINGTON Jr., MD 08/10/21 Carvedilol (Coreg) 12.5 Mg Tablet, 12.5 MG PO BID for 30 Days, #60 TAB Prov:CAROLYN WHITTINGTON Jr., MD 08/10/21 Continued Medications: Atorvastatin Calcium (Atorvastatin Calcium) 10 Mg Tablet 1 TAB PO HS Gabapentin (Neurontin) 300 Mg Capsule 600 MG PO BID for 15 Days, #60 CAP Insulin Glargine,Hum.rec.anlog (Toujeo Solostar) 300 Unit/Ml (1.5 Ml) Insuln.pen 40 UNITS SQ DAILY Lisinopril (Lisinopril) 2.5 Mg Tablet 1 TAB PO DAILY Metformin HCl (Metformin HCl ER) 1,000 Mg Tab.er.24 1000 MG PO BIDMEALS Time spent arranging discharge: 1-30 minutes PHYSICIAN STATEMENT I was present with the resident during the History and Physical exam and I have reviewed the resident's note. This case was discussed with the resident and I agree with the history, physical exam and medical decision making as documented. Additions/exceptions/observations were directly added to the notes. Jose C Macias MD, SYED M MD Apr 05, 2025 16:56
--- NOTE | 2025-04-05 17:03 | PN ---
INFECTIOUS DISEASE PROGRESS NOTE Date of Service: Apr 05, 2025 SUBJECTIVE: This is a 60 year old male patient who was seen and examined at bedside in room 419. Patient is s/p left BKA on 04/03/2025. The WBC has trended down to 8.0 and patient is afebrile, temperature is 97.9. Dressing change was performed by nursing and no drainage observe. Currently remains on Zosyn and vancomycin. No reports of nausea or vomiting. Patient's daughter visiting at bedside. PHYSICAL EXAM EYES: Anicteric. Pupils equal and reactive. HENT: No oral thrush seen, moist Oral mucosa. NECK: Supple, no JVD or thyromegaly. LUNGS: Good air entry. No rales, no rhonchi. CARDIOVASCULAR: S1, S2 regular. No murmur heard. ABDOMEN: Soft, non tender, bowel sounds present, no organomegaly CENTRAL NERVOUS SYSTEM: Awake, alert, oriented x 3. No focal deficits. SKIN: No rashes, no swelling. Left foot diabetic ulcer with cellulitis s/p BKA on 04/03/2025. LYMPHATICS: No peripheral lymphadenopathy. MUSCULOSKELETAL: No joint swelling, erythema or tenderness. EXTREMITIES: No cyanosis or clubbing. History of Right TMA. BACK: No deformity, no pressure ulcer. GENITOURINARY: No dysuria or hematuria. Vital Sign (Last 12 Hours) 04/05/25 04/05/25 04/05/25 04/05/25 07:30 08:00 12:00 16:00 Temp 97.9 97.5 98.4 Pulse 80 79 82 Resp 18 18 18 B/P (MAP) 151/87 125/73 142/80 Pulse Ox 95 95 96 96 O2 Delivery Room Air* Room Air Room Air Room Air O2 Flow Rate 0 18.0 FiO2 21 Intake & Output (last 24hrs) 04/04/25 04/04/25 04/05/25 15:00 23:00 07:00 Intake Total 600 ml 240 ml 240 ml Output Total 500 ml 250 ml 700 ml Balance 100 ml -10 ml -460 ml LABS: Laboratory: Test 04/05/25 15:02 04/05/25 08:33 04/05/25 04:34 04/04/25 19:40 Range/Units Whole Blood Glucose 216 H 70-110 MG/DL Vancomycin Level Trough 8.4 #L 10.0-20.0 UG/ML White Blood Count 8.0 4.8-10.8 K/uL Red Blood Count 3.56 L 4.50-6.20 MIL/uL Hemoglobin 10.7 L 14.0-18.0 g/dL Hematocrit 31.8 L 42-54 % Mean Corpuscular Volume 89.3 79-99 fL Mean Corpuscular Hemoglobin 30.1 27.0-33.0 pg Mean Corpuscular Hemoglobin Concent 33.6 32.0-36.0 g/dL Red Cell Distribution Width 13.2 11.0-15.5 % Platelet Count 375 130-400 K/uL Mean Platelet Volume 9.9 7.5-10.5 fL Immature Granulocyte % (Auto) 0.7 0-1 % Neutrophils (%) (Auto) 62.4 40.0-77.0 % Lymphocytes (%) (Auto) 27.3 21.0-51.0 % Monocytes (%) (Auto) 6.6 3.0-13.0 % Eosinophils (%) (Auto) 2.6 0.0-8.0 % Basophils (%) (Auto) 0.4 0.0-5.0 % Neutrophils # (Auto) 5.0 1.8-7.7 K/uL Lymphocytes # (Auto) 2.2 1.0-4.8 K/uL Monocytes # (Auto) 0.5 0.1-1.0 K/uL Eosinophils # (Auto) 0.21 0.00-0.70 K/uL Basophils # (Auto) 0.03 0.00-0.20 K/uL Absolute Immature Granulocyte (auto 0.06 0-1 K/uL Nucleated Red Blood Cells 0.0 0.0-0.19 % Sodium Level 131 L 136-145 mmol/L Potassium Level 4.4 3.5-5.1 mmol/L Chloride Level 99 L 101-111 mmol/L Carbon Dioxide Level 29 21-32 mmol/L Blood Urea Nitrogen 9 7-18 mg/dL Creatinine 0.9 0.5-1.3 mg/dL Glomerular Filtration Rate Calc 97 >90 mL/min Random Glucose 276 H 70-105 mg/dL Total Calcium 7.1 L 8.5-10.1 mg/dL Total Bilirubin 0.4 0.2-1.0 mg/dL Aspartate Amino Transf (AST/SGOT) 44 H 10-37 U/L Alanine Aminotransferase (ALT/SGPT) 58 12-78 U/L Alkaline Phosphatase 72 50-136 U/L Total Protein 6.1 6.0-8.3 g/dL Albumin 1.2 L 3.5-5.0 g/dL Prothrombin Time 12.4 H 9.6-11.6 SEC Prothromb Time International Ratio 1.19 H 0.85-1.15 Activated Partial Thromboplast Time 32.2 26.3-35.5 SEC Test 04/04/25 04:03 Range/Units Magnesium Level 2.00 1.80-2.40 mg/dL ASSESSMENT: Left foot diabetic ulcer with gas gangrene, s/p left BKA on 04/03/2025. Possible left foot osteomyelitis. Left lower extremity cellulitis. Sepsis. Leukocytosis. Hyponatremia. Poorly controlled Diabetes mellitus. Peripheral vascular disease. History of right foot osteomyelitis with right TMA. Medical noncompliance. PLAN: Continue vancomycin per pharmacy protocol. Continue Zosyn IV. Continue wound care. Continue pain management. Continue GI prophylaxis. continue diabetic medication Patient has been referred to SNF for rehab. This case was reviewed and discussed with my supervising physician and the above assessment and plan was formulated and agreed upon. ATTESTATION BY PHYSICIAN I have seen and examined the patient. I reviewed the documentation, medical decision making, and treatment plan as noted by the mid-level provider above. I agree with the findings and plan of care. SONNY HA MD, MIRTA L [facility] Apr 05, 2025 17:03
[2025-04-05] MEDS ORDERED: VANCOMYCIN 1.25 GM/250 ML BAG 250 ML IV SCH (21:00)
[2025-04-06] MEDS ORDERED: HYDR-4068 PO (16:38)
== END 2025-04-05 17:00 | DRG 710 ==
LOC: EDH 19:02 → EDHIP 19:03 → 4CH 22:21
PROVIDERS: ADMIT Internal Medicine; ATTEND Internal Medicine
PROC: 0Y6J0Z1 Detachment at Left Lower Leg, High, Open Approach (ICD-10-PCS; principal; 2025-04-03 10:44)
PROC: 05HY33Z Insertion of Infusion Device into Upper Vein, Percutaneous Approach (ICD-10-PCS; 2025-04-05)
DX: A41.9 Sepsis, unspecified organism (principal); M72.6 Necrotizing fasciitis; A48.0 Gas gangrene; E11.52 Type 2 diabetes mellitus with diabetic peripheral angiopathy with gangrene; E87.1 Hypo-osmolality and hyponatremia; L03.116 Cellulitis of left lower limb; L97.528 Non-pressure chronic ulcer of other part of left foot with other specified severity; R45.851 Suicidal ideations; E11.40 Type 2 diabetes mellitus with diabetic neuropathy, unspecified; E11.621 Type 2 diabetes mellitus with foot ulcer; E11.65 Type 2 diabetes mellitus with hyperglycemia; I10 Essential (primary) hypertension; M67.472 Ganglion, left ankle and foot; E66.01 Morbid (severe) obesity due to excess calories; F43.20 Adjustment disorder, unspecified; I25.10 Atherosclerotic heart disease of native coronary artery without angina pectoris; J43.9 Emphysema, unspecified; T79.7XXA Traumatic subcutaneous emphysema, initial encounter; R65.20 Severe sepsis without septic shock; Z51.5 Encounter for palliative care; Z79.4 Long term (current) use of insulin; Z79.82 Long term (current) use of aspirin; Z79.84 Long term (current) use of oral hypoglycemic drugs; Z79.899 Other long term (current) drug therapy; Z83.3 Family history of diabetes mellitus; Z86.73 Personal history of transient ischemic attack (TIA), and cerebral infarction without residual deficits; Z91.199 Patient's noncompliance with other medical treatment and regimen due to unspecified reason; Z68.26 Body mass index [BMI] 26.0-26.9, adult
CPT/HCPCS: 36415; 36556; 71045; 73630; 80048; 80053; 80202; 81001; 82550; 82948; 83036; 83605; 83735; 84100; 84145; 84484; 85025; 85027; 85610; 85730; 86850; 86900; 86901; 87040; 87086; 87635; 87804; 87880; 88307; 88311; 93005; 93925; 96365; 96375; 99291; C1894; G0378; J1171; J1815; J2003; J2250; J2270; J2371; J2543; J2704; J2795; J3010; J3373; J3475; J7030; J7120; P9045; A4215; A4222; A4223; A4649; A4663; A4930; A6223; A6450; C1750; J3370; J3490